=== PATIENT | male | born 1960 | race Caucasian/White ===

== ENCOUNTER 2016-08-13 22:37 | Emergency (ER) | payer MEDICARE ==
[2016-08-13 22:48] VITALS: BP 125/84
[2016-08-13] MEDS ORDERED: ACETAMINOPHEN SOLN 325 MG/10.15 ML UDCUP PO ONE (22:48)
== END 2016-08-14 02:15 | disposition left against medical advice (07) ==
LOC: ER 22:37
DX: Z53.21 Procedure and treatment not carried out due to patient leaving prior to being seen by health care provider (principal)
CPT/HCPCS: 73120; J3490

== ENCOUNTER 2016-09-13 23:13 | Emergency (ER) | payer OTHER, MEDICARE ==
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
[2016-09-14] MEDS ORDERED: MORPHINE SULFATE 10 MG/ML INJ IM ONE (02:05)
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
[2016-09-14] MEDS ORDERED: HYDROCODONE/ACETAMINOPHEN 5-325 MG 6 TAB/DSPK PO PRN (03:13)
[2016-09-14 03:24] VITALS: BP 130/77
== END 2016-09-14 03:23 | disposition home or self-care (01) ==
LOC: ER 23:13
DX: S16.1XXA Strain of muscle, fascia and tendon at neck level, initial encounter (principal); S39.012A Strain of muscle, fascia and tendon of lower back, initial encounter; S46.911A Strain of unspecified muscle, fascia and tendon at shoulder and upper arm level, right arm, initial encounter; V43.62XA Car passenger injured in collision with other type car in traffic accident, initial encounter; M54.2 Cervicalgia; M25.511 Pain in right shoulder; M54.5 Low back pain; Z98.1 Arthrodesis status; Z87.891 Personal history of nicotine dependence
CPT/HCPCS: 99284; 96372; 72110; 73030; 72125; L0120; J2270

== ENCOUNTER 2016-10-16 11:55 | Emergency (ER) | payer MEDICARE ==
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
[2016-10-16] MEDS ORDERED: ALBUTEROL SULFATE 0.083% NEB 2.5 MG/3 ML AMPUL NEB ONE (15:22)
[2016-10-16] MEDS ORDERED: PREDNISONE 20 MG TABLET PO ONE (16:26)
[2016-10-16] MEDS ORDERED: ACETAMINOPHEN 325 MG TABLET PO ONE (16:26)
[2016-10-16 16:44] VITALS: BP 115/92
--- NOTE | 2016-10-16 22:25 | EKG REPORT ---
SEVERITY:- ABNORMAL ECG - SINUS RHYTHM NONSPECIFIC T ABNORMALITIES, LATERAL LEADS : Confirmed by: Yuliya Rdz MD 16-Oct-2016 22:24:56
== END 2016-10-16 16:42 | disposition home or self-care (01) ==
LOC: ER 11:55
DX: S49.92XA Unspecified injury of left shoulder and upper arm, initial encounter (principal); M25.512 Pain in left shoulder; M54.2 Cervicalgia; J45.909 Unspecified asthma, uncomplicated; W19.XXXA Unspecified fall, initial encounter; Y92.098 Other place in other non-institutional residence as the place of occurrence of the external cause; Z87.891 Personal history of nicotine dependence
CPT/HCPCS: 93005; 94640; 99283; 72050; 71020; 73030; 93010; A9270 ×3; J7512

== ENCOUNTER → 2016-10-16 | Outpatient (CLI) | payer MEDICARE | LOC: RAD 09:50 | PROVIDERS: ATTEND Surgery | DX: R10.9 Unspecified abdominal pain (principal); N28.1 Cyst of kidney, acquired | CPT/HCPCS: 74177; 82565 ==

== ENCOUNTER 2019-08-15 07:09 | Emergency (ER) | payer MEDICARE ==
[2019-08-15] MEDS ORDERED: KETOROLAC TROMETHAMINE 60 MG/2 ML SDV IM ONE (08:41)
[2019-08-15] MEDS ORDERED: METHOCARBAMOL INJ/PF 1000 MG/10 ML SDV IM ONE ×2 (08:41→08:49)
--- NOTE | 2019-08-15 08:46 | ER Document Report ---
ED Fall - General Chief Complaint: Fall Stated Complaint: FALL/BACK AND NECK PAIN Time Seen by Provider: 08/15/19 08:26 Notes: Patient is a 59-year-old white male with a past medical history significant for chronic pain, status post multiple prior cervical and lumbar spinal surgeries who presents to the emergency department the chief complaint of pain in the neck, mid back and lower back after a fall that occurred this morning. Patient states he was standing at the mirror when he suddenly fell backwards landing flat on his back. He denies any loss of consciousness or syncope. He states that he sometimes has these "episodes". He takes morphine daily for chronic pain. He denies any numbness tingling or weakness. Denies any urinary or bowel incontinence or retention. Denies any saddle anesthesia. Denies hitting his head or loss of consciousness. TRAVEL OUTSIDE OF THE [place] IN LAST 30 DAYS: No - Related data Allergies/Adverse Reactions: No Known Allergies Allergy (Verified 08/15/19 07:14) Past Medical History - Social History Smoking Status: Former Smoker Family History: Reviewed & Not Pertinent Patient has suicidal ideation: No Patient has homicidal ideation: No - Past Medical History Cardiac Medical History: Reports: Hx Hypertension Pulmonary Medical History: Reports: Hx Asthma Renal/ Medical History: Denies: Hx Peritoneal Dialysis Past Surgical History: Reports: Hx Abdominal Surgery, Hx Appendectomy, Hx Bowel Surgery, Hx Orthopedic Surgery - Immunizations Hx Diphtheria, Pertussis, Tetanus Vaccination: Yes Review of Systems - Review of Systems Musculoskeletal: Back pain, Neck pain -: Yes All other systems reviewed and negative Physical Exam - Vital signs Vitals: Temp Pulse Resp BP Pulse Ox 97.5 F 86 20 103/73 100 08/15/19 07:13 08/15/19 07:13 08/15/19 07:13 08/15/19 07:13 08/15/19 07:13 - General General appearance: Alert, Anxious In distress: Moderate - HEENT Head: Normocephalic, Atraumatic Eyes: Normal Pupils: PERRL - Respiratory Respiratory status: No respiratory distress Chest status: Nontender Breath sounds: Normal Chest palpation: Normal - Cardiovascular Rhythm: Regular Heart sounds: Normal auscultation - Abdominal Inspection: Normal Distension: No distension Bowel sounds: Normal Tenderness: Nontender Organomegaly: No organomegaly - Back Back: Other - Surgical scars noted to the midline lumbar area. Mild tenderness around the area of L3. No deformity step-off or crepitus. Diffuse vague tenderness to the posterior cervical spine, no point tenderness in this area. Positive straight leg raise on the right. Lower extremity strength 5 out of 5 bilaterally. 2+ DP/PT bilaterally. Patient able to elevate great toes bilaterally. - Neurological Neuro grossly intact: Yes Cognition: Normal Orientation: AAOx4 [place] Coma Scale Eye Opening: Spontaneous [place] Coma Scale Verbal: Oriented [place] Coma Scale Motor: Obeys Commands [place] Coma Scale Total: 15 Speech: Normal Motor strength normal: LUE, RUE, LLE, RLE Sensory: Normal - Psychological Associated symptoms: Anxious - Skin Skin Temperature: Warm Skin Moisture: Dry Skin Color: Normal Course - Re-evaluation Re-evalutation: 08/15/19 11:34 Reevaluation at this time, patient resting comfortably in the room, sleeping. Upon waking him he states his pain is significantly improved. X-rays are negative for any acute process. Patient will call his pain management doctor today for further guidance. Discussed with him the importance of outpatient follow-up and advised that he return here or any ER immediately with any new, persistent or worsening symptoms. He verbalized understood and agreed. - Vital Signs Vital signs: Temp Pulse Resp BP Pulse Ox 97.5 F 86 20 103/73 100 08/15/19 07:13 08/15/19 07:13 08/15/19 07:13 08/15/19 07:13 08/15/19 07:13 Discharge - Discharge Clinical Impression: Fall Qualifiers: Encounter type: initial encounter Qualified Code(s): W19.XXXA - Unspecified fall, initial encounter Back pain Qualifiers: Back pain location: back pain in unspecified location Chronicity: acute Back pain laterality: unspecified Qualified Code(s): M54.9 - Dorsalgia, unspecified Disposition: HOME, SELF-CARE Instructions: Low Back Pain ([facility]) Additional Instructions: Call your pain management doctor and follow-up with your regular doctor in 2 to 3 days for reevaluation. Return here or any ER immediately with any new, persistent or worsening symptoms.
--- NOTE | 2019-08-15 09:59 | RADIOLOGY REPORT (SQ) ---
EXAM DESCRIPTION: T SPINE AP/LAT COMPLETED DATE/TIME: 08/15/2019 9:37 am REASON FOR STUDY: fall/pain COMPARISON: None. NUMBER OF VIEWS: Three views. TECHNIQUE: AP, swimmer's and lateral radiographic images acquired of the thoracic spine. LIMITATIONS: None. FINDINGS: MINERALIZATION: Normal. ALIGNMENT: Normal. No scoliosis. VERTEBRAE: No fracture or bone lesion. Maintained height, normal segmentation. DISCS: Multilevel disc height loss and osteophytosis. HARDWARE: None in the spine. MEDIASTINUM AND SOFT TISSUES: Widening of the superior mediastinum and right paratracheal stripe VISUALIZED LUNG BARGER: Clear. OTHER: No other significant finding. IMPRESSION: 1. No definite acute bony abnormality. 2. Multilevel thoracic spondylosis with mild disc height loss. 3. Questionable widening of the superior mediastinum. Recommend dedicated chest radiograph or CT fo r further evaluation. TECHNICAL DOCUMENTATION: JOB ID: [id number] [employer]- All Rights Reserved Reading location - IP/workstation name: [email or web address]
--- NOTE | 2019-08-15 10:01 | RADIOLOGY REPORT (SQ) ---
EXAM DESCRIPTION: L SPINE WHOLE COMPLETED DATE/TIME: 08/15/2019 9:37 am REASON FOR STUDY: fall/pain COMPARISON: 09/14/2016 NUMBER OF VIEWS: Five views including obliques. TECHNIQUE: AP, lateral, oblique, and sacral radiographic images acquired of the lumbar spine. LIMITATIONS: None. FINDINGS: MINERALIZATION: Decreased SEGMENTATION: 5 [id number] lumbar vertebral bodies. ALIGNMENT: Grade 1 anterolisthesis of L5 on S1, stable. Mild levoconvex lower lumbar curvature. VERTEBRAE: Maintained height. No fracture or worrisome bone lesion. DISCS: Mild multilevel disc height loss, greatest at L5-S1. POSTERIOR ELEMENTS: Multilevel facet arthropathy. No definite acute abnormality. Posterior fusion h ardware at L5-S1. HARDWARE: Posterior and anterior fusion hardware at L5-S1. PARASPINAL SOFT TISSUES: Vascular calcifications. PELVIS: Intact as visualized. No fractures or worrisome bone lesions. SI joints intact. OTHER: No other significant finding. IMPRESSION: 1. No definite acute bony abnormality. 2. Fusion hardware at L5-S1 with grade 1 anterolisthesis, stable. 3. Multilevel additional degenerative changes throughout the lumbar spine with associated facet arth ropathy. TECHNICAL DOCUMENTATION: JOB ID: [id number] [employer]- All Rights Reserved Reading location - IP/workstation name: [email or web address]
--- NOTE | 2019-08-15 10:03 | RADIOLOGY REPORT (SQ) ---
EXAM DESCRIPTION: CERV SP 3 VIEW OR LESS COMPLETED DATE/TIME: 08/15/2019 9:37 am REASON FOR STUDY: fall/pain COMPARISON: None. NUMBER OF VIEWS: Three views. TECHNIQUE: AP, lateral and odontoid radiographic images acquired of the cervical spine. LIMITATIONS: None. FINDINGS: MINERALIZATION: Decreased. ALIGNMENT: Straightening of the cervical lordosis. VERTEBRAE: Vertebral bodies are normal height. Fusion at C5-6. No definite fracture. DISCS: Spondylosis with disc height loss greatest at C4-5 and vertebral body fusion at C5-6. HARDWARE: None in the spine. SOFT TISSUES: No masses or calcifications. Lung apices clear. OTHER: No other significant finding. IMPRESSION: 1. No evidence of acute bony abnormality of the cervical spine. 2. Multilevel degenerative changes with fusion at C5-6. TECHNICAL DOCUMENTATION: JOB ID: [id number] [employer]- All Rights Reserved Reading location - IP/workstation name: [email or web address]
--- NOTE | 2019-08-15 11:29 | RADIOLOGY REPORT (SQ) ---
EXAM DESCRIPTION: CHEST 2 VIEWS COMPLETED DATE/TIME: 08/15/2019 9:56 am REASON FOR STUDY: poss widened mediastinum COMPARISON: 10/16/2016 EXAM PARAMETERS: NUMBER OF VIEWS: two views TECHNIQUE: Digital Frontal and Lateral radiographic views of the chest acquired. RADIATION DOSE: NA LIMITATIONS: none FINDINGS: LUNGS AND PLEURA: No opacities, masses or pneumothorax. No pleural effusion. MEDIASTINUM AND HILAR STRUCTURES: No masses or contour abnormalities. HEART AND VASCULAR STRUCTURES: Heart normal size. No evidence for failure. BONES: No acute findings. HARDWARE: None in the chest. OTHER: No other significant finding. IMPRESSION: NO ACUTE RADIOGRAPHIC FINDING IN THE CHEST. TECHNICAL DOCUMENTATION: JOB ID: [id number] [employer]- All Rights Reserved Reading location - IP/workstation name: [id number]
[2019-08-15 12:04] VITALS: BP 98/58
== END 2019-08-15 12:13 | disposition home or self-care (01) ==
LOC: ER 07:09
DX: M54.5 Low back pain (principal); M54.9 Dorsalgia, unspecified; M54.2 Cervicalgia; W18.30XA Fall on same level, unspecified, initial encounter; G89.29 Other chronic pain; Z79.891 Long term (current) use of opiate analgesic; I10 Essential (primary) hypertension; J45.909 Unspecified asthma, uncomplicated; Z98.1 Arthrodesis status; Z87.891 Personal history of nicotine dependence
CPT/HCPCS: 99283; 96372; 72040; 71046; 72110; 72070; J1885; J2800

== ENCOUNTER 2019-08-15 17:09 | Emergency (ER) | payer MEDICARE ==
[2019-08-15] MEDS ORDERED: ONDANSETRON HCL INJ/PF 4 MG/2 ML SDV IV ONE (17:22)
--- NOTE | 2019-08-15 17:25 | ER Document Report ---
ED Medical Screen (RME) - General Chief Complaint: Nausea/Vomiting Stated Complaint: NAUSEA/VOMITING/WEAK Time Seen by Provider: 08/15/19 17:21 Primary Care Provider: JHONNY MANJARREZ PA-C [Primary Care Provider] - Follow up as needed Notes: HPI: 59-year-old male presenting again to the emergency department apparently for poor responsiveness. Patient's states that he was seen here earlier after a fall, does have a history of conversion disorder also history of gastric bypass. Patient apparently was given Toradol and Robaxin in the emergency department for his chronic pain issues with good response, states when they got home she had difficulty arousing him at times. She did not call 911 but instead brought him back to the emergency department herself. Patient complains of continued gagging and nausea, but denies abdominal pain. Complains of his otherwise usual chronic pain issues I have greeted and performed a rapid initial assessment of this patient. A comprehensive ED assessment and evaluation of the patient, analysis of test results and completion of the medical decision making process will be conducted by additional ED providers PHYSICAL EXAMINATION: GENERAL: Chronically ill-appearing, patient appears to be possibly gagging but not actually vomiting. Patient is throwing himself around in his wheelchair dramatically HEAD: Atraumatic, normocephalic. EYES: sclera anicteric, conjunctiva are normal. ENT: Moist mucous membranes. NECK: Normal range of motion LUNGS: Normal work of breathing, lung sounds are clear to auscultation HEART: 2+ radial pulses bilaterally, regular rate and rhythm ABD: limited by positioning for exam in triage. EXTREMITIES: no pitting or edema. No cyanosis. NEUROLOGICAL: No focal neurological deficits. Moves all extremities spontaneously and on command. PSYCH: Anxious and dramatic SKIN: Warm, Dry, normal turgor, no rashes or lesions noted. Nursing indicates that when they went to get the patient out of the vehicle into a wheelchair they essentially had to sternal rub the patient to arouse him TRAVEL OUTSIDE OF THE [place] IN LAST 30 DAYS: No - Related Data Allergies/Adverse Reactions: No Known Allergies Allergy (Verified 08/15/19 07:14) Past Medical History - Past Medical History Cardiac Medical History: Reports: Hx Hypertension Pulmonary Medical History: Reports: Hx Asthma Renal/ Medical History: Denies: Hx Peritoneal Dialysis Past Surgical History: Reports: Hx Abdominal Surgery, Hx Appendectomy, Hx Bowel Surgery, Hx Orthopedic Surgery - Immunizations Hx Diphtheria, Pertussis, Tetanus Vaccination: Yes Doctor's Discharge - Discharge Referrals: JHONNY MANJARREZ PA-C [Primary Care Provider] - Follow up as needed
[2019-08-15 18:20] LABS: ABSOLUTE EOSINOPHILS # (AUTO) 0.1 10^3/uL (0.0-0.6); ABSOLUTE LYMPHOCYTES (AUTO) 1.4 10^3/uL (0.5-4.7); ABSOLUTE NEUT (AUTO) 10.6 10^3/uL (1.7-8.2); BASOPHILS % (AUTO) 0.3 % (0-2); EOSINOPHILS % (AUTO) 0.5 % (0-6); HEMATOCRIT 36.7 % (37.9-51.0); HEMOGLOBIN 12.6 g/dL (13.5-17.0); LYMPHOCYTES % (AUTO) 10.5 % (13-45); MEAN CORPUSCULAR HGB CONC 34.2 g/dL (32.0-36.0); MEAN CORPUSCULAR VOLUME 85 fl (80-97); MONOCYTES % (AUTO) 7.4 % (3-13); PLATELET COUNT 320 10^3/uL (150-450); RED BLOOD COUNT 4.33 10^6/uL (4.35-5.55); RED CELL DISTRIBUTION WIDTH 14.5 % (11.5-14.0); SEGMENTED NEUTROPHILS % (AUTO) 81.3 % (42-78); TOTAL CELLS COUNTED % (AUTO) 100 %; WHITE BLOOD COUNT 13.1 10^3/uL (4.0-10.5)
[2019-08-15 18:38] LABS: ALBUMIN 4.5 g/dL (3.5-5.0); ALKALINE PHOSPHATASE 168 U/L (38-126); ANION GAP 14 (5-19); ASPARTATE AMINO TRANSFERASE 50 U/L (17-59); BILIRUBIN,DIRECT 0.3 mg/dL (0.0-0.4); BILIRUBIN,TOTAL 0.6 mg/dL (0.2-1.3); BLOOD UREA NITROGEN 42 mg/dL (7-20); CALCIUM 9.8 mg/dL (8.4-10.2); CARBON DIOXIDE 31 mmol/L (22-30); CHLORIDE 95 mmol/L (98-107); GLUCOSE 121 mg/dL (75-110); POTASSIUM 4.8 mmol/L (3.6-5.0); TOTAL PROTEIN 7.8 g/dL (6.3-8.2)
--- NOTE | 2019-08-15 18:42 | RADIOLOGY REPORT (SQ) ---
EXAM DESCRIPTION: CT HEAD WITHOUT COMPLETED DATE/TIME: 08/15/2019 6:24 pm REASON FOR STUDY: fall poss head inj COMPARISON: None. TECHNIQUE: Axial images acquired through the brain without intravenous contrast. Images reviewed wi th bone and brain windows. Additional sagittal and coronal reconstructions were generated. Images st ored on PACS. All CT scanners at this facility use dose modulation, iterative reconstruction, and/or weight based d osing when appropriate to reduce radiation dose to as low as reasonably achievable (ALARA). [facility]: Dose Right [facility]: CareDose [facility]: Dose Right [facility]: Teradose 4D [facility]: Smart Knowledge Adventure RADIATION DOSE: CT Rad equipment meets quality standard of care and radiation dose reduction techniq ues were employed. CTDIvol: 53.2 mGy. DLP: 1097 mGy-cm. mGy. LIMITATIONS: There is significant motion and metal artifact through the base of the skull and the up per cervical spine. FINDINGS: VENTRICLES: Normal size and contour. CEREBRUM: No masses. No hemorrhage. No midline shift. No evidence for acute infarction. Normal gra y/white matter differentiation. No areas of low density in the white matter. CEREBELLUM: No masses. No hemorrhage. No alteration of density. No evidence for acute infarction. EXTRAAXIAL SPACES: No fluid collections. No masses. ORBITS AND GLOBE: No intra- or extraconal masses. Normal contour of globe without masses. CALVARIUM: No fracture. PARANASAL SINUSES: No fluid or mucosal thickening. SOFT TISSUES: No mass or hematoma. OTHER: Significant motion and metal artifact in the bases: The upper cervical spine, as such the stru ctures are not well evaluated on this exam. IMPRESSION: Partially limited examination due to patient motion through the skullbase and upper cerv ical spine. No evidence of an acute intracranial abnormality. EVIDENCE OF ACUTE STROKE: NO. COMMENT: Quality ID # [id number]: Final reports with documentation of one or more dose reduction techniques (e.g., Automated exposure control, adjustment of the mA and/or kV according to patient size, use of iterative reconstruction technique) TECHNICAL DOCUMENTATION: JOB ID: [id number] [employer]- All Rights Reserved Reading location - IP/workstation name: [email or web address]
--- NOTE | 2019-08-15 20:18 | ER Document Report ---
ED General - General Chief Complaint: Nausea/Vomiting Stated Complaint: NAUSEA/VOMITING/WEAK Time Seen by Provider: 08/15/19 17:21 Primary Care Provider: JHONNY PATINO PA-C [Primary Care Provider] - Follow up as needed TRAVEL OUTSIDE OF THE [place] IN LAST 30 DAYS: No - HPI Notes: Patient is a 59-year-old gentleman who presents to the emergency department for evaluation with . The is the primary historian for me at this time. Evidently, the patient has a history of cataplexy, narcolepsy. He had an episode today where he fell straight back, hit his head. He was complaining of increased pain. Per the , he was very restless through the night, complaining of multiple issues of just "not feeling well" but really could not elaborate. He was seen here earlier today after his fall, medicated with Toradol and Robaxin, had significant relief. He had a CT scan of his head which was unremarkable. He was feeling improved, was sent home. According to the while sitting in the chair he "fell out." She states she tried for approximately 20 minutes and was unable to revive him back to responsiveness. She brought him here to the emergency department for further evaluation. While here, the patient had another episode like this, was placed on BiPAP. I was able to arouse him, the patient states that he was feeling improved, had no acute complaints or concerns other than his chronic back pain. In talking to his , the patient notes that he is to have to self catheterize. She states that he does not have catheters anymore. I asked the patient, he states he does not remember urinating today. - Related Data Allergies/Adverse Reactions: No Known Allergies Allergy (Verified 08/15/19 07:14) Past Medical History - General Information source: Patient, Relative - Social History Smoking Status: Former Smoker Family History: Reviewed & Not Pertinent Patient has suicidal ideation: No Patient has homicidal ideation: No - Past Medical History Cardiac Medical History: Reports: Hx Hypertension Pulmonary Medical History: Reports: Hx Asthma Endocrine Medical History: Reports: Hx Diabetes Mellitus Type 2 - Reversed after gastric bypass Renal/ Medical History: Denies: Hx Peritoneal Dialysis Psychiatric Medical History: Reports: Other - Cataplexy, narcolepsy Past Surgical History: Reports: Hx Abdominal Surgery, Hx Appendectomy, Hx Bowel Surgery, Hx Orthopedic Surgery - Immunizations Hx Diphtheria, Pertussis, Tetanus Vaccination: Yes Review of Systems - Review of Systems Constitutional: See HPI EENT: No symptoms reported Cardiovascular: No symptoms reported Respiratory: No symptoms reported Gastrointestinal: No symptoms reported Genitourinary: See HPI Musculoskeletal: See HPI Skin: No symptoms reported Neurological/Psychological: No symptoms reported Physical Exam - Vital signs Vitals: Temp Pulse Resp BP Pulse Ox 97.4 F 91 18 149/117 H 91 L 08/15/19 17:20 08/15/19 17:20 08/15/19 17:20 08/15/19 17:20 08/15/19 17:20 - Notes Notes: Initially upon entering the room, I see a 59-year-old male who appears older than his stated age. He has BiPAP in place, is sleeping with his head flexed forward. He wakes to sternal rub. At that point he does not appear drowsy and is alert and oriented. Vital signs reviewed, please refer to chart. Head is normocephalic, atraumatic. Pupils equal round, reactive to light. Neck is supple without meningismus. Heart is regular rate and rhythm. Lungs are clear to auscultation bilaterally. Abdomen is soft, nontender, normoactive bowel sounds throughout. Extremities without cyanosis, clubbing. Posterior calves are nontender. Peripheral pulses are equal. Skin is warm and dry. Patient is awake, alert, oriented x3. Cranial nerves II - XII are grossly intact without focal neurological deficits. Strength is plus 5 out of 5 bilateral upper and lower extremities. Sensation is intact. Reflexes symmetrical. Intact [id number], rapid alternating movements, [id number]. Course - Re-evaluation Re-evalutation: 08/15/19 20:17 Patient presents to the emergency department for evaluation. He is a 59-year-old gentleman with a history of narcolepsy and cataplexy. It certainly seems to me that it is possible that the patient had an exacerbation of his cataplexy and narcolepsy earlier today. He is stable at this time, awake and alert, has no acute complaints. I am concerned, however, about his renal function. The patient does not have any record of renal failure in the past, does not note any history of abnormal renal function. I am concerned about the possibility of an obstructive etiology. Patient stated that he thought he could urinate. A post void residual bladder scan was ordered, in addition to a retroperitoneal ultrasound. Patient is currently stable, we will continue to monitor. 08/15/19 23:48 Patient's ultrasound revealed what appears to be medical renal disease but no signs of hydronephrosis. He did have just over 300 cc of urine from his Blake catheter, but he has had urinary retention issues in the past. He would prefer to go home without Blake catheter, and I believe that is reasonable at this time. The Blake catheter will be discontinued. I am unable to find a record of old creatinines in the past. The patient is unsure as to whether or not he has had elevated creatinines, but certainly given the appearance of his kidneys on ultrasound I think is reasonable to think that this is not new. He states he has not seen nephrology. I spoke with Dr. Cornejo. He agrees to see the patient in follow-up. I explained to the patient that this may require referral from primary care as well, and the patient and voiced understanding. At this p oint, the patient is slightly agitated and restless, which according to is his baseline. I do not see any indication of getting repeat discharge vitals, and let nursing know. They are to discontinue his Blake, discontinue his IV, and he is discharged. He is to follow-up closely with Jhonny patino and Dr. Cornejo. - Vital Signs Vital signs: Temp Pulse Resp BP Pulse Ox 97.4 F 91 18 149/117 H 91 L 08/15/19 17:20 08/15/19 17:20 08/15/19 17:20 08/15/19 17:20 08/15/19 17:20 - Laboratory Result Diagrams: 08/15/19 18:01 08/15/19 18:01 Laboratory results interpreted by me: 08/15/19 08/15/19 08/15/19 18:01 18:01 22:18 WBC 13.1 H RBC 4.33 L Hgb 12.6 L Hct 36.7 L RDW 14.5 H Lymph % (Auto) 10.5 L Absolute Neuts (auto) 10.6 H Seg Neutrophils % 81.3 H Chloride 95 L Carbon Dioxide 31 H BUN 42 H Creatinine 3.38 H Est GFR ( Amer) 23 L Est GFR (MDRD) Non-Af 19 L Glucose 121 H Alkaline Phosphatase 168 H Urine Protein 30 H Urine Urobilinogen 2.0 H - Diagnostic Test Radiology reviewed: Reports reviewed Radiology results interpreted by me: 08/15/19 23:[address] 08/15/19 18:01 IMPRESSION: Partially limited examination due to patient motion through the skullbase and upper cervical spine. No evidence of an acute intracranial abnormality. EVIDENCE OF ACUTE STROKE: NO. Renal Ultrasound 08/15/19 20:11 IMPRESSION: Limited exam secondary to patient motion Atrophic right kidney Increased echogenicity of the kidneys bilaterally consistent with intrinsic medical renal disease Discharge - Discharge Clinical Impression: Abnormal renal function, Unresponsive episode, Urinary retention Condition: Stable Disposition: HOME, SELF-CARE Instructions: Kidney Failure ([facility]), Urinary Retention ([facility]) Additional Instructions: Continue your regular medications as prescribed. You need to follow-up with nephrology and primary care this week. You may require referral to nephrology from your primary care provider. Please call Dr. Cornejo for an appointment. Return to the emergency department with worsening or new concerning symptoms of any sort. Referrals: JHONNY PATINO PA-C [Primary Care Provider] - Follow up as needed Daryl CORNEJO MD [ACTIVE STAFF] - Follow up as needed
[2019-08-15] MEDS ORDERED: GABAPENTIN 300 MG CAPSULE PO ONE (21:41)
[2019-08-15] MEDS ORDERED: BUPROPION HCL 75 MG TABLET PO ONE (21:42)
[2019-08-15] MEDS ORDERED: VENLAFAXINE HCL 75 MG TABLET PO ONE (21:42)
[2019-08-15] MEDS ORDERED: BACLOFEN 10 MG TABLET PO ONE (21:42)
[2019-08-15] MEDS ORDERED: NORTRIPTYLINE HCL 10 MG CAPSULE PO ONE (21:42)
--- NOTE | 2019-08-15 21:42 | RADIOLOGY REPORT (SQ) ---
EXAM DESCRIPTION: US RETROPERITONEUM LIMITED COMPLETED DATE/TME: 08/15/2019 20:11 CLINICAL HISTORY: 59 years Male eval kidneys, acute renal failure COMPARISON: None. TECHNIQUE: Transabdominal grayscale imaging performed to evaluate the kidneys and urinary bladder. FINDINGS: Right kidney measures 8.7 x 3.4 x 4.1 cm. There is increased echogenicity. Probable small cyst in the mid to lower pole measuring 2.3 x 2.4 cm. No hydronephrosis. Examination is compromised by patient's inability to hold still and suspended respiration. Left kidney measures 9.9 x 4.7 x 4.4 cm with increased echogenicity. No definite hydronephrosis or mass. Bladder is incompletely distended. Neither ureteral jet is seen. IMPRESSION: Limited exam secondary to patient motion Atrophic right kidney Increased echogenicity of the kidneys bilaterally consistent with intrinsic medical renal disease
[2019-08-15] MEDS ORDERED: MORPHINE SULFATE IR 30 MG TABLET PO ONE (21:43)
[2019-08-15] MEDS ORDERED: TAMSULOSIN HCL 0.4 MG CAP.SR.24H PO ONE (21:43)
[2019-08-15 22:39] LABS: APPEARANCE,URINE SLIGHTLY-CLOUDY; BILIRUBIN,URINE NEGATIVE (NEGATIVE); COLOR,URINE YELLOW; GLUCOSE, URINE NEGATIVE (NEGATIVE); KETONES,URINE NEGATIVE (NEGATIVE); LEUKOCYTE ESTERASE,URINE NEGATIVE (NEGATIVE); NITRITE,URINE NEGATIVE (NEGATIVE); PROTEIN,URINE 30 mg/dL (NEGATIVE)
[2019-08-15 22:50] LABS: URINE AMPHETAMINES SCREEN NEGATIVE; URINE BARBITURATES SCREEN NEGATIVE; URINE BENZODIAZEPINES SCREEN NEGATIVE; URINE COCAINE SCREEN NEGATIVE; URINE MARIJUANA (THC) SCREEN NEGATIVE; URINE METHADONE SCREEN NEGATIVE; URINE PHENCYCLIDINE SCREEN NEGATIVE
[2019-08-15] MEDS ORDERED: BUPROPION HCL 75 MG TABLET ONE (22:55)
[2019-08-15] MEDS ORDERED: NORTRIPTYLINE HCL 10 MG CAPSULE ONE (22:55)
[2019-08-15] MEDS ORDERED: VENLAFAXINE HCL 75 MG TABLET ONE (22:55)
[2019-08-16 00:15] VITALS: BP 100/68
== END 2019-08-16 00:15 | disposition home or self-care (01) ==
LOC: ER 17:09
DX: R41.82 Altered mental status, unspecified (principal); R33.9 Retention of urine, unspecified; N26.1 Atrophy of kidney (terminal); R45.1 Restlessness and agitation; I10 Essential (primary) hypertension; J45.909 Unspecified asthma, uncomplicated; E11.9 Type 2 diabetes mellitus without complications; Z87.891 Personal history of nicotine dependence; Z86.69 Personal history of other diseases of the nervous system and sense organs
CPT/HCPCS: 99284; 51702; 96374; 36415; 85025; 80053; 81001; 80307; 76775; 70450; 94660; A9270 ×7; J2405; J3490

== ENCOUNTER 2019-09-16 22:34 | Emergency (ER) | payer MEDICARE ==
--- NOTE | 2019-09-16 23:20 | ER Document Report ---
ED Medical Screen (RME) - General Chief Complaint: Urinary Problem Stated Complaint: FALL/HEAD INJURY,SHOULDER PAIN Time Seen by Provider: 09/16/19 23:12 Primary Care Provider: JHONNY AMNJARREZ PA-C [Primary Care Provider] - Follow up as needed Mode of Arrival: Wheelchair Information source: Patient Notes: Patient is a 59-year-old male presenting to the emergency department multiple complaints. Patient reports he fell earlier due to his cataplexy and injured his head and left shoulder. He denies any loss of consciousness. He also reports he has not urinated in at least 24 hours. He also reports of the last time he was here he had an acute kidney injury, states that he was supposed to follow-up with a kidney doctor however the referral has not gone through. I did review the records and patient had a creatinine of greater than 3 last month with apparently no follow-up. Orders initiated at this time. I have greeted and performed a rapid initial assessment of this patient. A comprehensive ED assessment and evaluation of the patient, analysis of test results and completion of the medical decision making process will be conducted by additional ED providers. I have specifically instructed the patient or family members with the patient to immediately return to any nursing staff should anything change in the patient's condition or with their chief complaint. TRAVEL OUTSIDE OF THE [place] IN LAST 30 DAYS: No - Related Data Allergies/Adverse Reactions: No Known Allergies Allergy (Verified 08/15/19 07:14) Past Medical History - Past Medical History Cardiac Medical History: Reports: Hx Hypertension Pulmonary Medical History: Reports: Hx Asthma Endocrine Medical History: Reports: Hx Diabetes Mellitus Type 2 - Reversed after gastric bypass Renal/ Medical History: Denies: Hx Peritoneal Dialysis Past Surgical History: Reports: Hx Abdominal Surgery, Hx Appendectomy, Hx Bowel Surgery, Hx Orthopedic Surgery - Immunizations Hx Diphtheria, Pertussis, Tetanus Vaccination: Yes Physical Exam - Vital signs Vitals: Temp Pulse Resp BP Pulse Ox 98.5 F 92 18 126/73 H 97 09/16/19 22:55 09/16/19 22:55 09/16/19 22:55 09/16/19 22:55 09/16/19 22:55 Course - Vital Signs Vital signs: Temp Pulse Resp BP Pulse Ox 98.5 F 92 18 126/73 H 97 09/16/19 22:55 09/16/19 22:55 09/16/19 22:55 09/16/19 22:55 09/16/19 22:55 Doctor's Discharge - Discharge Referrals: JHONNY MANJARREZ PA-C [Primary Care Provider] - Follow up as needed
[2019-09-16 23:52] LABS: ABSOLUTE EOSINOPHILS # (AUTO) 0.1 10^3/uL (0.0-0.6); RED CELL DISTRIBUTION WIDTH 14.6 % (11.5-14.0); TOTAL CELLS COUNTED % (AUTO) 100 %
[2019-09-17] LABS: ABSOLUTE LYMPHOCYTES (AUTO) 1.9 10^3/uL (0.5-4.7); ABSOLUTE MONOCYTES (AUTO) 1.1 10^3/uL (0.1-1.4); ABSOLUTE NEUT (AUTO) 8.3 10^3/uL (1.7-8.2); BASOPHILS % (AUTO) 0.3 % (0-2); EOSINOPHILS % (AUTO) 0.5 % (0-6); HEMATOCRIT 36.1 % (37.9-51.0); HEMOGLOBIN 12.7 g/dL (13.5-17.0); LYMPHOCYTES % (AUTO) 16.5 % (13-45); MEAN CORPUSCULAR HEMOGLOBIN 29.9 pg (27.0-33.4); MEAN CORPUSCULAR HGB CONC 35.3 g/dL (32.0-36.0); MEAN CORPUSCULAR VOLUME 85 fl (80-97); MONOCYTES % (AUTO) 9.5 % (3-13); PLATELET COUNT 369 10^3/uL (150-450); RED BLOOD COUNT 4.26 10^6/uL (4.35-5.55); SEGMENTED NEUTROPHILS % (AUTO) 73.2 % (42-78); WHITE BLOOD COUNT 11.3 10^3/uL (4.0-10.5)
[2019-09-17 00:16] LABS: APPEARANCE,URINE SLIGHTLY-CLOUDY; BILIRUBIN,URINE NEGATIVE (NEGATIVE); COLOR,URINE YELLOW; GLUCOSE, URINE NEGATIVE (NEGATIVE); KETONES,URINE NEGATIVE (NEGATIVE); PROTEIN,URINE 30 mg/dL (NEGATIVE); URINE SPECIFIC GRAVITY 1.019; UROBILINOGEN,URINE NEGATIVE mg/dL (<2.0)
--- NOTE | 2019-09-17 00:37 | RADIOLOGY REPORT (SQ) ---
Left shoulder three view on 09/17/2019 at 12:11 AM CLINICAL INDICATION: Injury, pain COMPARISON: 10/16/2016 FINDINGS: There is old healed fracture of the distal clavicle. The AC joint is well aligned. There is no acute fracture. Glenohumeral joint is well located. No other bony abnormality is noted. IMPRESSION: No acute abnormality.
[2019-09-17 00:46] LABS: ALBUMIN 4.3 g/dL (3.5-5.0); ALKALINE PHOSPHATASE 168 U/L (38-126); ANION GAP 14 (5-19); ASPARTATE AMINO TRANSFERASE 54 U/L (17-59); BILIRUBIN,DIRECT 0.1 mg/dL (0.0-0.4); BILIRUBIN,TOTAL 0.9 mg/dL (0.2-1.3); BLOOD UREA NITROGEN 42 mg/dL (7-20); CALCIUM 9.3 mg/dL (8.4-10.2); CARBON DIOXIDE 24 mmol/L (22-30); CHLORIDE 97 mmol/L (98-107); GLUCOSE 106 mg/dL (75-110); TOTAL PROTEIN 7.4 g/dL (6.3-8.2)
--- NOTE | 2019-09-17 00:48 | RADIOLOGY REPORT (SQ) ---
EXAM DESCRIPTION: [facility]Lex: CT HEAD WITHOUT IV CONTRAST CLINICAL HISTORY: 59 years Male; HEAD INJURY; TECHNIQUE: Noncontrast CT head. All CT scans at this facility use dose modulation, iterative reconstruction, and/or weight based dosing when appropriate to reduce radiation dose to as low as reasonably achievable. COMPARISON: CT 08/15/2019 FINDINGS: Krishnamurthy matter, white matter, ventricles, and cisterns are within normal limits. No acute hemorrhage or mass effect. Visualized portions of paranasal sinuses and mastoids are clear. Visualized portions of the calvarium are within normal limits. IMPRESSION: 1. No acute intracranial findings.
[2019-09-17] MEDS ORDERED: HYDROMORPHONE HCL INJ/PF 2 MG/ML AMPULE IV ONE (03:05)
--- NOTE | 2019-09-17 03:18 | ER Document Report ---
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 Patient states he falls frequently but when he got up his shoulder was hurting a lot. He denies numbness, weakness, vomiting, or headache. Patient secondarily complains that he has urinary retention. Patient has a history of self-catheterization, he states that ever since he had surgery and urinary retention he overstretched his bladder and he intermittently has problems with retention, he used to get self cath frequently, he usually can get by without any catheterization but he has not urinated since the morning and it is starting to get uncomfortable. Patient also states that he had a creatinine greater than 3 last month and is still waiting for his primary care to complete follow-up with Dr. Cornejo. Patient is also on chronic pain management and has had neck surgery in the past. Patient denies any other complaints. TRAVEL OUTSIDE OF THE [place] IN LAST 30 DAYS: No - Related Data Allergies/Adverse Reactions: No Known Allergies Allergy (Verified 08/15/19 07:14) Past Medical History - General Information source: Patient - Social History Smoking Status: Unknown if Ever Smoked Frequency of alcohol use: None Drug Abuse: None Lives with: Family Family History: Reviewed & Not Pertinent Patient has suicidal ideation: No Patient has homicidal ideation: No - Past Medical History Cardiac Medical History: Reports: Hx Hypertension Pulmonary Medical History: Reports: Hx Asthma Endocrine Medical History: Reports: Hx Diabetes Mellitus Type 2 - Reversed after gastric bypass Renal/ Medical History: Denies: Hx Peritoneal Dialysis Past Surgical History: Reports: Hx Abdominal Surgery, Hx Appendectomy, Hx Bowel Surgery, Hx Orthopedic Surgery - Immunizations Hx Diphtheria, Pertussis, Tetanus Vaccination: Yes Review of Systems - Review of Systems Constitutional: No symptoms reported EENT: No symptoms reported Cardiovascular: No symptoms reported Respiratory: No symptoms reported Gastrointestinal: No symptoms reported Genitourinary: See HPI Male Genitourinary: No symptoms reported Musculoskeletal: See HPI Skin: No symptoms reported Hematologic/Lymphatic: No symptoms reported Neurological/Psychological: See HPI Physical Exam - Vital signs Vitals: Temp Pulse Resp BP Pulse Ox 98.5 F 92 18 126/73 H 97 09/16/19 22:55 09/16/19 22:55 09/16/19 22:55 09/16/19 22:55 09/16/19 22:55 - Notes Notes: GENERAL: Alert, interacts well. No acute distress. HEAD: Normocephalic, atraumatic. EYES: Pupils equal, round, and reactive to light. Extraocular movements intact. ENT: Oral mucosa moist, tongue midline. Oropharynx unremarkable. Airway patent. LUNGS: Clear to auscultation bilaterally, no wheezes, rales, or rhonchi. No respiratory distress. HEART: Regular rate and rhythm. No murmur ABDOMEN: Soft, non-tender. Non-distended. Bowel sounds present in all 4 q uadrants. GENITOURINARY: Blake in place with no bleeding, tenderness, swelling, or concerning findings. EXTREMITIES: Tenderness over the tip of the shoulder on the left and over the posterior shoulder extending to the supraspinatus. Range of motion intact. No swelling or contusion noted. No significant tenderness. Normal upper extremity otherwise on the left with normal supervising librarian, range of motion, and no signs of trauma. Moves all 4 extremities spontaneously. No edema, normal radial and dorsalis pedis pulses bilaterally. No cyanosis. BACK: no cervical, thoracic, lumbar midline tenderness. No saddle anesthesia, normal distal neurovascular exam. Moves all extremities in full range of motion. NEUROLOGICAL: Alert and oriented x3. Normal speech. Patient has jittery movements but his cranial nerves and neurological exam are otherwise intact. PSYCH: Normal affect, normal mood. SKIN: Warm, dry, normal turgor. No rashes or lesions noted. Course - Re-evaluation Re-evalutation: CBC shows mild leukocytosis, nonspecific. Chemistry shows creatinine of 3.1 but this is actually improved compared to recent testing. After placing Blake we had about 1200 cc output. Patient is not surprised by this, he states he has had this in the past with similar results. He received IV fluids in addition to this all the Blake was in place. Imaging of the neck added because of the location of his pain and history of neck surgery along with head injury, this was negative, CT of the head negative, x-ray of the shoulder negative. His exam is reassuring in addition to this. Patient has frequent falls from cataplexy. Discussed with patient. Discussed head and precautions, details of work-up, patient states he has follow-up planned with Dr. Cornejo. Patient insists that we remove the Blake. He states that he has had this removed many times in the past, urinates fairly well at home, occasionally gets a urinary retention and he will come back if he has this. I recommended that we leave this in place and he hydrate well because of his kidney functioning but he again refused. This was pulled on his request, patient states that he definitely will see his primary care and the enzyme chemist and close follow-up and return if he worsens in any way. He is going home with his significant other, discussed details with her as well. They state understanding and agreement. - Vital Signs Vital signs: Temp Pulse Resp BP Pulse Ox 98.5 F 99 16 139/86 H 95 09/17/19 06:00 09/17/19 06:00 09/17/19 06:00 09/17/19 06:00 09/17/19 06:00 - Laboratory Result Diagrams: 09/16/19 23:25 09/16/19 23:25 Laboratory results interpreted by me: 09/16/19 09/16/19 09/16/19 23:25 23:25 23:55 WBC 11.3 H RBC 4.26 L Hgb 12.7 L Hct 36.1 L RDW 14.6 H Absolute Neuts (auto) 8.3 H Sodium 134.8 L Chloride 97 L BUN 42 H Creatinine 3.11 H Est GFR ( Amer) 25 L Est GFR (MDRD) Non-Af 21 L Alkaline Phosphatase 168 H Urine Protein 30 H Discharge - Discharge Clinical Impression: Neck pain, Urinary retention Fall Qualifiers: Encounter type: initial encounter Qualified Code(s): W19.XXXA - Unspecified fall, initial encounter Left shoulder pain Qualifiers: Chronicity: acute Qualified Code(s): M25.512 - Pain in left shoulder Head injury Qualifiers: Encounter type: initial encounter Qualified Code(s): S09.90XA - Unspecified injury of head, initial encounter Condition: Stable Disposition: HOME, SELF-CARE Additional Instructions: Your imaging does not show any concerning findings. Please follow head injury precautions listed below. Take muscle x-ray if needed along with your pain medication. Apply ice to your shoulder, heat to your neck, and rest. You have elected to have the Blake removed today. Please follow-up with Dr. Cornejo, nephrology. Your creatinine today was 3.1. Also follow with the urology referral listed below. Return for any concerning symptoms or something is not right. [facility] [address] [place], [place] [id number] [facility] [address] [place], [place] [id number] Head Injury Precautions At this point, there is no evidence that your head injury is serious. Observation is necessary, however. Limit activity for the first 24 hours. During the first 24 hours, check to see approximately every two to three hours that the patient is easily arousable, responds normally, and can perform common tasks such as walking without difficulty. Contact your doctor or go to the hospital if any of the following things occur: Persistent vomiting, difficulty in arousing the patient, worsening or continued headache, or failure to improve as expected. Head injuries can cause symptoms that persist for a few days or even a few weeks. Prescriptions: Methocarbamol [Robaxin-750] 750 mg PO QID PRN #20 tablet PRN Reason: Referrals: Daryl CORNEJO MD [ACTIVE STAFF] - Follow up tomorrow
[2019-09-17] MEDS ORDERED: NORMAL SALINE 1000 ML 1,000 ML IV ONE (04:30)
--- NOTE | 2019-09-17 05:02 | RADIOLOGY REPORT (SQ) ---
CT cervical spine without contrast on 09/17/2019 at 4:15 AM CLINICAL INDICATION: Fall, neck pain TECHNIQUE: Multiple axial images are obtained throughout the cervical spine without the administration of contrast. Sagittal and coronal reformatted images are also performed and reviewed. This exam was performed according to our departmental dose-optimization program, which includes automated exposure control, adjustment of the mA and/or kV according to patient size and/or use of iterative reconstruction technique. Total DLP is 646.92 mGy*cm. COMPARISON: 09/14/2016 FINDINGS: Reformatted images reveal normal alignment of the cervical spine. There is again noted chronic fusion at C5-6 that may be congenital or postsurgical. Degenerative disc disease is again noted especially from C3 through C5. There is no prevertebral soft tissue swelling. There are no acute fracture lines. Degenerative disc disease and relatively short pedicles produce canal stenosis at especially C3-4 and C4-5 where disc osteophyte complexes produce moderate canal stenosis. This appears essentially stable when compared with the prior exam. IMPRESSION: Stable degenerative changes with no acute fracture or acute malalignment of the cervical spine.
[2019-09-17 06:03] VITALS: BP 139/86
== END 2019-09-17 06:10 | disposition home or self-care (01) ==
LOC: ER 22:34
DX: S09.90XA Unspecified injury of head, initial encounter (principal); M25.512 Pain in left shoulder; M54.2 Cervicalgia; R33.9 Retention of urine, unspecified; W18.39XA Other fall on same level, initial encounter; Z91.81 History of falling; I10 Essential (primary) hypertension; Z98.84 Bariatric surgery status
CPT/HCPCS: 99284; 96361; 96374; 36415; 85025; 80053; 81001; 73030; 70450; 72125; J1170; J7030

== ENCOUNTER 2019-11-03 14:18 | Emergency (ER) | payer MEDICARE ==
[2019-11-03 14:23] VITALS: BP 115/77
--- NOTE | 2019-11-03 14:38 | ER Document Report ---
HPI - HPI Patient complains to provider of: Left wrist and hand injury Time Seen by Provider: 11/03/19 14:27 Onset: Other - two days ago, wednesday Onset/Duration: Persistent Quality of pain: Achy Context: 59-year-old male presents emergency department with complaints of left wrist hand pain. Reports 2 days ago he was stepping over a fence when his pants got caught in his shoe and he tripped and fell back on his shoulder and his hand. He denies hitting his head. No change in LOC. Reports since that time he has been having trouble gripping soda without his hand and wrist hurting. Patient is right-hand dominant. Patient reports he is fractured his right arm many times but never his left. Associated Symptoms: None Exacerbated by: Movement Relieved by: Denies Similar symptoms previously: No Recently seen / treated by doctor: No Past Medical History - General Information source: Patient - Social History Smoking Status: Unknown if Ever Smoked Frequency of alcohol use: None Drug Abuse: None Lives with: Family Family History: Reviewed & Not Pertinent Patient has suicidal ideation: No Patient has homicidal ideation: No - Past Medical History Cardiac Medical History: Reports: Hx Hypertension Pulmonary Medical History: Reports: Hx Asthma Endocrine Medical History: Reports: Hx Diabetes Mellitus Type 2 - Reversed after gastric bypass Renal/ Medical History: Denies: Hx Peritoneal Dialysis Traumatic Medical History: Reports: Hx Fractures Past Surgical History: Reports: Hx Abdominal Surgery, Hx Appendectomy, Hx Bowel Surgery, Hx Gastric Bypass Surgery, Hx Orthopedic Surgery - Immunizations Hx Diphtheria, Pertussis, Tetanus Vaccination: Yes Vertical Provider Document - CONSTITUTIONAL Agree With Documented VS: Yes Exam Limitations: No Limitations General Appearance: WD/WN, No Apparent Distress - INFECTION CONTROL TRAVEL OUTSIDE OF THE [place] IN LAST 30 DAYS: No - HEENT HEENT: Atraumatic, Normocephalic - NECK Neck: Supple - RESPIRATORY Respiratory: No Respiratory Distress - CARDIOVASCULAR Cardiovascular: Regular Rate - MUSCULOSKELETAL/EXTREMETIES Musculoskeletal/Extremeties: MAEW, FROM, Tender - left hand and wrist ttp medially, some schapoid ttp, no obvious deformity, cap refill <3 sec, radial pulse +3. - NEURO Level of Consciousness: Awake, Alert, Appropriate - DERM Integumentary: Warm, Dry Adult Front & Back Diagram: 1 - ttp Course - Re-evaluation Re-evalutation: 11/03/19 15:17 Hand X-Ray 11/03/19 14:32 IMPRESSION: No acute fracture or dislocation of the left hand or wrist. Wrist X-Ray 11/03/19 14:32 IMPRESSION: No acute fracture or dislocation of the left hand or wrist. Shoulder X-Ray 11/03/19 14:37 IMPRESSION: NEGATIVE STUDY OF THE LEFT SHOULDER. NO RADIOGRAPHIC EVIDENCE OF ACUTE INJURY. 11/03/19 15:25 Patient presents to the emergency department with some left hand wrist and shoulder pain after he fell 2 days ago. X-rays are negative for acute fracture but he does have some tenderness in the scaphoid area. Patient will be placed in a thumb spica and sling. Patient was instructed on the importance of follow- up with orthopedic. He does report he has an appointment with orthopedic next week to evaluate the same shoulder. Reports he has had pain with the shoulder for quite a while and they do not know why. He was instructed on negative x- rays instructed on thumb spica for possible occult scaphoid fracture. He was instructed to follow-up with his orthopedic within the next week. He verbalized understanding to all instructions. - Vital Signs Vital signs: Temp Pulse Resp BP Pulse Ox 99.9 F 96 16 115/77 96 11/03/19 14:21 11/03/19 14:21 11/03/19 14:21 11/03/19 14:21 11/03/19 14:21 - Diagnostic Test Radiology reviewed: Image reviewed, Reports reviewed Procedures - Immobilization Left Wrist Pre-Proc Neuro Vasc Exam: Normal Immobilizer type: Thumb spica - short, Sling Performed by: PCT Post-Proc Neuro Vasc Exam: Unchanged from pre-exam Alignment checked and good: Yes Discharge - Discharge Clinical Impression: left hand and wrist injury Left shoulder pain Qualifiers: Chronicity: unspecified Qualified Code(s): M25.512 - Pain in left shoulder Condition: Stable Disposition: HOME, SELF-CARE Instructions: Ice & Elevation ([facility]), Temporary Sling ([facility]), Temporary Splint ([facility]) Additional Instructions: *You have been evaluated for left shoulder, hand and wrist injury *Your x-rays did not show an acute fracture. Due to your tenderness in your scaphoid area I am concerned about a possible hidden fracture. *Maintain the splint and sling *Rest/Ice/Elevate your wrist *Follow up with orthopedics for an evaluation within one week *Take your pain medication as prescribed *Return to ED for worsening condition, changes, needs Referrals: JHONNY MANJARREZ PA-C [Primary Care Provider] - Follow up in 3-5 days
--- NOTE | 2019-11-03 15:16 | RADIOLOGY REPORT (SQ) ---
EXAM DESCRIPTION: SHOULDER LEFT 2 OR MORE VIEWS IMAGES COMPLETED DATE/TIME: 11/03/2019 1:55 pm REASON FOR STUDY: pain fell. Fell 2 days ago. Anterior and posterior shoulder pain. COMPARISON: None. NUMBER OF VIEWS: Three views. TECHNIQUE: Internal rotation, external rotation, and Y view images acquired of the left shoulder. LIMITATIONS: None. FINDINGS: MINERALIZATION: Normal. BONES: No acute fracture. No worrisome bone lesions. JOINTS: Mild osteoarthritis of the acromioclavicular joint. Normal glenohumeral joint space alignmen t. VISUALIZED LUNGS AND RIBS: No pneumothorax. No rib fracture. SOFT TISSUES: No radiopaque foreign body. OTHER: No other significant finding. IMPRESSION: NEGATIVE STUDY OF THE LEFT SHOULDER. NO RADIOGRAPHIC EVIDENCE OF ACUTE INJURY. TECHNICAL DOCUMENTATION: JOB ID: [id number] 2010 [employer]- All Rights Reserved Reading location - IP/workstation name: [email or web address]
--- NOTE | 2019-11-03 15:16 | RADIOLOGY REPORT (SQ) ---
EXAM DESCRIPTION: HAND LEFT 3 VIEWS; WRIST LEFT 3 VIEWS IMAGES COMPLETED DATE/TIME: 11/03/2019 1:55 pm REASON FOR STUDY: fall pain. Fell 2 days ago with pain in the proximal hand. COMPARISON: None. EXAM PARAMETERS: NUMBER OF VIEWS: Three views. TECHNIQUE: AP, lateral and oblique radiographic images acquired of the left hand and wrist. LIMITATIONS: None. FINDINGS: MINERALIZATION: Normal. BONES: No acute fracture or dislocation. No worrisome bone lesions. JOINTS: No effusions. SOFT TISSUES: No soft tissue swelling. No foreign body. OTHER: No other significant finding. IMPRESSION: No acute fracture or dislocation of the left hand or wrist. TECHNICAL DOCUMENTATION: JOB ID: [id number] 2010 [employer]- All Rights Reserved Reading location - IP/workstation name: [email or web address]
--- NOTE | 2019-11-03 15:16 | RADIOLOGY REPORT (SQ) ---
EXAM DESCRIPTION: HAND LEFT 3 VIEWS; WRIST LEFT 3 VIEWS IMAGES COMPLETED DATE/TIME: 11/03/2019 1:55 pm REASON FOR STUDY: fall pain. Fell 2 days ago with pain in the proximal hand. COMPARISON: None. EXAM PARAMETERS: NUMBER OF VIEWS: Three views. TECHNIQUE: AP, lateral and oblique radiographic images acquired of the left hand and wrist. LIMITATIONS: None. FINDINGS: MINERALIZATION: Normal. BONES: No acute fracture or dislocation. No worrisome bone lesions. JOINTS: No effusions. SOFT TISSUES: No soft tissue swelling. No foreign body. OTHER: No other significant finding. IMPRESSION: No acute fracture or dislocation of the left hand or wrist. TECHNICAL DOCUMENTATION: JOB ID: [id number] 2010 [email or web address]- All Rights Reserved Reading location - IP/workstation name: [email or web address]
== END 2019-11-03 15:30 | disposition home or self-care (01) ==
LOC: ER 14:18
DX: S69.92XA Unspecified injury of left wrist, hand and finger(s), initial encounter (principal); M25.512 Pain in left shoulder; W01.0XXA Fall on same level from slipping, tripping and stumbling without subsequent striking against object, initial encounter; I10 Essential (primary) hypertension; Z98.84 Bariatric surgery status
CPT/HCPCS: 99283

== ENCOUNTER → 2019-11-27 | Outpatient (CLI) | payer MEDICARE | LOC: RAD 12:18 | PROVIDERS: ATTEND Orthopaedic Surgery | DX: M75.52 Bursitis of left shoulder (principal) ==

== ENCOUNTER 2019-11-29 19:49 | Emergency (ER) | payer MEDICARE ==
--- NOTE | 2019-11-29 20:20 | ER Document Report ---
ED Medical Screen (RME) - General Chief Complaint: Finger Injury Stated Complaint: FINGER INJURY Time Seen by Provider: 11/29/19 20:17 Primary Care Provider: CATALINA EISENBERG DO [Primary Care Provider] - Follow up as needed Mode of Arrival: Ambulatory Information source: Patient Notes: 59-year-old male presented to the ED for concerns of change in the color and circulation to his hands and a new heart murmur at his primary doctors today. He states he went and saw Priscila patino for regular scheduled visit and she told to come straight to the ED because he had a change in the color of her his hands and his nailbeds were much paler than normal and that she heard a new heart murmur today. He states he was very concerned after she told him that so he went home took care of business and he came to the emergency room. He states he does not smoke he does drink 2-3 beers a day and does not do any drugs. He has no cardiac history that he knows of. Patient is alert oriented respirations regular and unlabored speaking in full sentences. O2 sat was 99 to 100% in the pit area I have greeted and performed a rapid initial assessment of this patient. A comprehensive ED assessment and evaluation of the patient, analysis of test results and completion of medical decision making process will be conducted by an additional ED providers. TRAVEL OUTSIDE OF THE [place] IN LAST 30 DAYS: No - Related Data Allergies/Adverse Reactions: No Known Allergies Allergy (Verified 11/29/19 20:05) Past Medical History - Past Medical History Cardiac Medical History: Reports: Hx Hypertension Pulmonary Medical History: Reports: Hx Asthma Endocrine Medical History: Reports: Hx Diabetes Mellitus Type 2 - Reversed after gastric bypass Renal/ Medical History: Denies: Hx Peritoneal Dialysis Traumatic Medical History: Reports: Hx Fractures Past Surgical History: Reports: Hx Abdominal Surgery, Hx Appendectomy, Hx Bowel Surgery, Hx Gastric Bypass Surgery, Hx Orthopedic Surgery - Immunizations Hx Diphtheria, Pertussis, Tetanus Vaccination: Yes Physical Exam - Vital signs Vitals: Temp Pulse Resp BP Pulse Ox 98.4 F 81 16 139/82 H 96 11/29/19 19:56 11/29/19 19:56 11/29/19 19:56 11/29/19 19:56 11/29/19 19:56 Course - Vital Signs Vital signs: Temp Pulse Resp BP Pulse Ox 98.4 F 81 16 139/82 H 96 11/29/19 19:56 11/29/19 19:56 11/29/19 19:56 11/29/19 19:56 11/29/19 19:56 Doctor's Discharge - Discharge Referrals: CATALINA EISENBERG DO [Primary Care Provider] - Follow up as needed
[2019-11-29 20:56] LABS: ABSOLUTE EOSINOPHILS # (AUTO) 0.1 10^3/uL (0.0-0.6); ABSOLUTE LYMPHOCYTES (AUTO) 1.9 10^3/uL (0.5-4.7); ABSOLUTE MONOCYTES (AUTO) 0.6 10^3/uL (0.1-1.4); ABSOLUTE NEUT (AUTO) 3.4 10^3/uL (1.7-8.2); BASOPHILS % (AUTO) 0.5 % (0-2); EOSINOPHILS % (AUTO) 2.1 % (0-6); HEMATOCRIT 33.2 % (37.9-51.0); HEMOGLOBIN 11.6 g/dL (13.5-17.0); LYMPHOCYTES % (AUTO) 31.7 % (13-45); MEAN CORPUSCULAR HEMOGLOBIN 29.7 pg (27.0-33.4); MEAN CORPUSCULAR HGB CONC 34.8 g/dL (32.0-36.0); MEAN CORPUSCULAR VOLUME 85 fl (80-97); MONOCYTES % (AUTO) 10.5 % (3-13); PLATELET COUNT 284 10^3/uL (150-450); RED BLOOD COUNT 3.89 10^6/uL (4.35-5.55); SEGMENTED NEUTROPHILS % (AUTO) 55.2 % (42-78); TOTAL CELLS COUNTED % (AUTO) 100 %; WHITE BLOOD COUNT 6.1 10^3/uL (4.0-10.5)
[2019-11-29 21:15] LABS: ALBUMIN 3.7 g/dL (3.5-5.0); ALKALINE PHOSPHATASE 136 U/L (38-126); ASPARTATE AMINO TRANSFERASE 45 U/L (17-59); BILIRUBIN,TOTAL 0.5 mg/dL (0.2-1.3); BLOOD UREA NITROGEN 22 mg/dL (7-20); CALCIUM 9.1 mg/dL (8.4-10.2); CHLORIDE 98 mmol/L (98-107); GLUCOSE 97 mg/dL (75-110); POTASSIUM 4.1 mmol/L (3.6-5.0); TOTAL PROTEIN 6.7 g/dL (6.3-8.2)
[2019-11-29 21:20] LABS: ANION GAP 5 (5-19); CARBON DIOXIDE 35 mmol/L (22-30)
--- NOTE | 2019-11-29 22:20 | ER Document Report ---
ED General - General Chief Complaint: Finger Injury Stated Complaint: FINGER INJURY Time Seen by Provider: 11/29/19 20:17 Primary Care Provider: CATALINA EISENBERG DO [ACTIVE STAFF] - Follow up as needed Mode of Arrival: Ambulatory TRAVEL OUTSIDE OF THE [place] IN LAST 30 DAYS: No - HPI Notes: Chief complaint: Discoloration of fingers and toes History of present illness: 59-year-old male with a history of chronic depression, cataplexy, narcolepsy chronic pain syndrome and degenerative disc disease sent here from the office by his primary care provider, Priscila Collier, because she is noticed that he has significant discoloration of his fingers and toes and also thought she heard a new systolic cardiac murmur today. This gentleman really has no other significant new complaints today. He denies fever or chills. He denies chest pain. He denies palpitations. He denies any h istory of IV drug abuse. He denies abuse of alcohol. He is a past cigarette smoker but says he has not smoked and over 15 years. I reviewed his current medications and none of the current agents he is taking appear to be vasoconstrictors. He does not describe any significant pain in his fingers or toes. He has had no ulcerations. He denies arthritic symptoms. He denies family history of collagen vascular diseases. - Related Data Allergies/Adverse Reactions: No Known Allergies Allergy (Verified 11/29/19 20:05) Home Medications: pregabalin, nortiptyline, baclofen, synthroid, omeprazole, velafaxine, bupropion, losartan/hctz, tamsulosin, morphine Past Medical History - General Information source: Patient - Social History Smoking Status: Former Smoker Chew tobacco use (# tins/day): No Frequency of alcohol use: Social Family History: Reviewed & Not Pertinent Patient has homicidal ideation: No - Past Medical History Cardiac Medical History: Reports: Hx Hypertension Pulmonary Medical History: Reports: Hx Asthma Endocrine Medical History: Reports: Hx Diabetes Mellitus Type 2 - Reversed after gastric bypass Renal/ Medical History: Denies: Hx Peritoneal Dialysis GI Medical History: Reports: Hx Gastroesophageal Reflux Disease Traumatic Medical History: Reports: Hx Fractures Past Surgical History: Reports: Hx Abdominal Surgery, Hx Appendectomy, Hx Bowel Surgery, Hx Gastric Bypass Surgery, Hx Orthopedic Surgery - Immunizations Hx Diphtheria, Pertussis, Tetanus Vaccination: Yes Review of Systems - Review of Systems Notes: Constitutional: Negative for fever. HENT: Negative for sore throat. Eyes: Negative for visual changes. Cardiovascular: Negative for chest pain. Respiratory: Negative for shortness of breath. Gastrointestinal: Negative for abdominal pain, vomiting or diarrhea. Genitourinary: Negative for dysuria. Musculoskeletal: Chronic lower back pain. Skin: Negative for rash. Neurological: Negative for headaches, weakness or numbness. 10 point ROS negative except as marked above and in HPI. Physical Exam - Vital signs Vitals: Temp Pulse Resp BP Pulse Ox 98.4 F 81 16 139/82 H 96 11/29/19 19:56 11/29/19 19:56 11/29/19 19:56 11/29/19 19:56 11/29/19 19:56 - Notes Notes: GENERAL: Male patient of approximately stated age appearing in no acute distress. SKIN: Good turgor. Erythema of hands and feet with some pallor of nailbeds. No ulcerations present. No splinter hemorrhages of nailbeds present HEAD: Normocephalic atraumatic. EYES: PERRLA. EOMI. Conjunctivae and sclerae clear. EARS: CANALS AND TMS CLEAR. NOSE: CLEAR. MOUTH: Moist mucosa. Edentulous. No stridor or edema. No drooling. NECK: Supple. No masses or thyromegaly. No adenopathy. Carotids 2+ without bruits. No JVD. BACK: Symmetrical without tenderness. Old lumbar laminectomy scars present. CHEST: Respirations unlabored. Breath sounds clear and symmetrical. HEART: Regular rhythm. Grade 2 systolic murmur heard left second interspace without transmission. No diastolic murmur. No gallop or rub. ABDOMEN: Soft nontender without masses, organomegaly or rebound. Bowel sounds normally active. No bruits. GENITALIA: Deferred. EXTREMITIES: Skin changes of digits as noted above. Patient has 2+ clubbing of the nailbeds of fingers on both hands. No edema. No calf tenderness. Cap refill less than 1.5 seconds. Dorsalis pedis and posterior tibial pulses 3+ and symmetrical. NEUROLOGICAL: GCS 15. Alert and oriented x3. Normal gait. Fluent speech. Cranial nerves II through XII intact. Sensorimotor and cerebellar normal. Normal tone. PSYCHIATRIC: Appropriate affect. Course - Re-evaluation Re-evalutation: 11/29/19 23:15 The patient appears to have Raynaud's phenomenon. He is not a current smoker although he has been in the past. He does not give any history of any type of collagen vascular disease or symptoms that would be suggestive of undiagnosed collagen vascular disease. He is on a large number of medications which I have reviewed with him. All of these current agents I note that he is taking some chronic morphine for chronic pain syndrome related to his failed back surgery. I think in this case this is likely to be the responsible agent unfortunately. His cardiac murmur is a systolic murmur which is very subtle. I suspect this is not clinically related to his current findings. I note that he has a completely normal EKG he is not having any chest pain or cardiac symptoms. He also has a normal chest x-ray per radiologist. I suggested that he talk with his primary provider about getting an outpatient echocardiogram electively. He certainly does not have any fever or elevation of white count or other factors that would suggest anything like an acute endocarditis. He appears very stable for outpatient follow-up with PMD. - Vital Signs Vital signs: Temp Pulse Resp BP Pulse Ox 98.4 F 81 16 139/82 H 96 11/29/19 20:06 11/29/19 19:56 11/29/19 19:56 11/29/19 19:56 11/29/19 19:56 - Laboratory Result Diagrams: 11/29/19 20:35 11/29/19 20:35 Laboratory results interpreted by me: 11/29/19 11/29/19 20:35 20:35 RBC 3.89 L Hgb 11.6 L Hct 33.2 L Carbon Dioxide 35 H BUN 22 H Alkaline Phosphatase 136 H Discharge - Discharge Clinical Impression: Raynaud's phenomenon (by history or observed) Qualifiers: Raynaud?s-associated gangrene presence: without gangrene Qualified Code(s): I73.00 - Raynaud's syndrome without gangrene Condition: Stable Disposition: HOME, SELF-CARE Additional Instructions: Return for follow-up with your primary care provider. Discussed potential role of chronic morphine administration producing Raynaud's phenomenon. You may also wish to discuss obtaining an elective outpatient ECHOCARDIOGRAM. Return here as needed for new or worsening symptoms: Pain that is worsening or unimproved Uncontrolled vomiting High fever or shaking chills Overall worsening Referrals: CATALINA EISENBERG, [ACTIVE STAFF] - Follow up as needed
--- NOTE | 2019-11-29 22:27 | EKG REPORT ---
SEVERITY:- NORMAL ECG - SINUS RHYTHM : Confirmed by: Yuliya Rdz MD 29-Nov-2019 22:26:51
--- NOTE | 2019-11-29 22:40 | RADIOLOGY REPORT (SQ) ---
EXAM DESCRIPTION: XR CHEST 2 VIEWS COMPLETED DATE/TME: 11/29/2019 22:11 CLINICAL HISTORY: 59 years Male, Cardiac murmur COMPARISON: 10/16/16 NUMBER OF VIEWS/TECHNIQUE: 2, Frontal, Lateral FINDINGS: Mild elevation of the left hemidiaphragm. Atherosclerosis. Increased right lung volume. Mild deformity of the distal left clavicle and mild osteoarthritis of the left acromioclavicular joint. Stable Adequate lung volume, clear parenchyma, normal cardiac silhouette, and intact bony thorax. IMPRESSION: No acute cardiopulmonary findings.
[2019-11-29 23:29] VITALS: BP 136/78
== END 2019-11-29 23:35 | disposition home or self-care (01) ==
LOC: ER 19:49
DX: I73.00 Raynaud's syndrome without gangrene (principal); R01.1 Cardiac murmur, unspecified; I10 Essential (primary) hypertension; E11.9 Type 2 diabetes mellitus without complications; J45.909 Unspecified asthma, uncomplicated; K21.9 Gastro-esophageal reflux disease without esophagitis; M54.5 Low back pain; G89.4 Chronic pain syndrome; Z79.899 Other long term (current) drug therapy; Z79.891 Long term (current) use of opiate analgesic; Z87.891 Personal history of nicotine dependence; Z98.84 Bariatric surgery status
CPT/HCPCS: 36415; 71046; 80053; 80307; 85025; 93005; 93010; 99284

== ENCOUNTER 2020-01-31 15:09 | Inpatient (IN) | payer MEDICARE ==
--- NOTE | 2020-01-31 15:42 | ER Document Report ---
ED General - General Chief Complaint: Syncope Stated Complaint: POSSIBLE SYNCOPE Time Seen by Provider: 01/31/20 15:39 Primary Care Provider: JHONNY MANJARREZ PA-C [Primary Care Provider] - Follow up as needed Notes: HPI: Patient is a 59-year-old male presents today stating that he went up to use the bathroom last night and at 3 in the morning sat on the toilet and woke up on the toilet at 8 AM. He states he had some numbness to bilateral legs when he awoke. Patient states he has a history of cataplexy, narcolepsy, and conversion disorder along with the other past medical history as recorded. He states he has taken his medications appropriately. Denies any headache, neck pain, chest pain, abdominal pain, fevers, vomiting, weakness of the legs. He did have one bout of nonbloody diarrhea in the last 24 hours. He denies any lightheadedness or dizziness. ROS: See HPI All other review of systems reviewed and otherwise negative Reviewed vital signs and nursing note as charted by RN. PHYSICAL EXAM: CONSTITUTIONAL: Alert and oriented and responds appropriately to questions. Well-appearing; well-nourished HEAD: Normocephalic; atraumatic EYES: PERRL; full extraocular range of motion without nystagmus ENT: Normal nose; no rhinorrhea; moist mucous membranes; pharynx without lesions noted NECK: Supple without meningismus; non-tender; no carotid bruit; no cervical lymphadenopathy, no masses CARD: Regular rate and rhythm; no murmurs; symmetric distal pulses RESP: Normal chest excursion without splinting or tachypnea; breath sounds clear and equal bilaterally; no wheezes, no rhonchi, no rales ABD/GI: Normal bowel sounds; non-distended; soft, non-tender; no palpable organomegaly or masses BACK: The back appears normal with old surgical back scars present; no erythema, swelling, step-offs, or focal tenderness EXT: Normal ROM in all joints; mild tenderness to left wrist with any obvious swelling or deformity SKIN: No acute lesions noted NEURO: CN 2-12 intact; 5/5 bilateral upper and lower extremity strength with sensation intact to light touch; normal cerebellar exam PSYCH: The patient's mood and manner are appropriate. Grooming and personal hygiene are appropriate. TRAVEL OUTSIDE OF THE [place] IN LAST 30 DAYS: No - Related Data Allergies/Adverse Reactions: No Known Allergies Allergy (Verified 01/31/20 15:45) Past Medical History - Social History Smoking Status: Unknown if Ever Smoked Family History: Reviewed & Not Pertinent - Past Medical History Cardiac Medical History: Reports: Hx Hypertension Pulmonary Medical History: Reports: Hx Asthma Endocrine Medical History: Reports: Hx Diabetes Mellitus Type 2 - Reversed after gastric bypass Renal/ Medical History: Denies: Hx Peritoneal Dialysis GI Medical History: Reports: Hx Gastroesophageal Reflux Disease Traumatic Medical History: Reports: Hx Fractures Past Surgical History: Reports: Hx Abdominal Surgery, Hx Appendectomy, Hx Bowel Surgery, Hx Gastric Bypass Surgery, Hx Orthopedic Surgery - Immunizations Hx Diphtheria, Pertussis, Tetanus Vaccination: Yes Physical Exam - Vital signs Vitals: Temp Pulse Resp BP Pulse Ox 98.2 F 88 20 119/68 97 01/31/20 15:17 01/31/20 15:17 01/31/20 15:17 01/31/20 15:17 01/31/20 15:17 Course - Re-evaluation Re-evalutation: Given the past medical history we will obtain basic labs, EKG, troponin, urine analysis, and reassess. Patient has full range of motion of the legs with no swelling, edema, weakness, or numbness. Patient states his legs are very numb after he awoke at 8 AM. I believe this is most likely secondary to sitting on the toilet for 5 hours. Given the complicated history of narcolepsy, cataplexy, conversion disorder, following a size painter, if the work-up is unremarkable, believe that the patient most likely can be discharged home with strict return precautions. 01/31/20 15:41 EKG shows a heart rate of 88, normal sinus rhythm, normal axis, no ST elevation or depression. PACs present. 01/31/20 17:43 Labs as recorded. Some transaminitis is present. AST much more than ALT. Normal bilirubin. No abdominal pain. CK total was 11,000. Creatinine is gone up from 0.92-3.81. It was elevated earlier in the year. I did call the automobile spring repairer and the patient states that he is only had some kidney problems starting this year. Potassium is actually low. I will provide a liter of fluid and some p.o. potassium replacement and admit the patient to the hospitalist for further evaluation and treatment. - Vital Signs Vital signs: Temp Pulse Resp BP Pulse Ox 98.2 F 88 20 119/68 97 01/31/20 15:17 01/31/20 15:17 01/31/20 15:17 01/31/20 15:17 01/31/20 15:17 - Laboratory Result Diagrams: 01/31/20 15:32 01/31/20 16:30 Laboratory results interpreted by me: 01/31/20 01/31/20 01/31/20 15:32 15:32 16:30 RBC 4.33 L Hgb 12.3 L Hct 36.8 L RDW 14.4 H [place] % (Auto) 15.9 H Sodium 129.3 L Potassium 3.1 L Chloride 96 L BUN 41 H Creatinine 3.81 H Est GFR ( Amer) 20 L Est GFR (MDRD) Non-Af 16 L Calcium 8.3 L AST 261 H ALT 67 H Alkaline Phosphatase 127 H Creatine Kinase 03802 H CK-MB (CK-2) 259.00 H Critical Care Note - Critical Care Note Total time excluding time spent on procedures (mins): 35 Discharge - Discharge Clinical Impression: Transaminitis Syncope Qualifiers: Syncope type: unspecified Qualified Code(s): R55 - Syncope and collapse Acute renal failure Qualifiers: Acute renal failure type: unspecified Qualified Code(s): N17.9 - Acute kidney failure, unspecified Rhabdomyolysis Qualifiers: Rhabdomyolysis type: non-traumatic Qualified Code(s): M62.82 - Rhabdomyolysis Condition: Fair Disposition: ADMITTED INPATIENT Admitting Provider: Leann (Hospitalist) Unit Admitted: Medical Floor Referrals: JHONNY MANJARREZ PA-C [Primary Care Provider] - Follow up as needed
[2020-01-31 16:00] LABS: ABSOLUTE NEUT (AUTO) 4.1 10^3/uL (1.7-8.2); BASOPHILS % (AUTO) 0.2 % (0-2); EOSINOPHILS % (AUTO) 0.3 % (0-6); HEMATOCRIT 36.8 % (37.9-51.0); HEMOGLOBIN 12.3 g/dL (13.5-17.0); LYMPHOCYTES % (AUTO) 16.8 % (13-45); MEAN CORPUSCULAR HEMOGLOBIN 28.5 pg (27.0-33.4); MEAN CORPUSCULAR HGB CONC 33.5 g/dL (32.0-36.0); MEAN CORPUSCULAR VOLUME 85 fl (80-97); MONOCYTES % (AUTO) 15.9 % (3-13); PLATELET COUNT 267 10^3/uL (150-450); RED BLOOD COUNT 4.33 10^6/uL (4.35-5.55); RED CELL DISTRIBUTION WIDTH 14.4 % (11.5-14.0); SEGMENTED NEUTROPHILS % (AUTO) 66.8 % (42-78); TOTAL CELLS COUNTED % (AUTO) 100 %; WHITE BLOOD COUNT 6.2 10^3/uL (4.0-10.5)
[2020-01-31] MEDS ORDERED: OXYCODONE-ACETAMINOPHEN 5-325 MG TABLET PO ONE (16:07)
[2020-01-31 16:26] LABS: TROPONIN I 0.024 ng/mL
--- NOTE | 2020-01-31 17:08 | RADIOLOGY REPORT (SQ) ---
EXAM DESCRIPTION: WRIST LEFT 3 VIEWS IMAGES COMPLETED DATE/TIME: 01/31/2020 4:58 pm REASON FOR STUDY: 35; fall COMPARISON: 11/03/2019. NUMBER OF VIEWS: Three views. TECHNIQUE: AP, lateral, and oblique radiographic images acquired of the left wrist. LIMITATIONS: None. FINDINGS: MINERALIZATION: Normal. BONES: No acute fracture or dislocation. No worrisome bone lesions. Normal alignment. SOFT TISSUES: No soft tissue swelling. No foreign body. OTHER: No other significant finding. IMPRESSION: NEGATIVE STUDY OF THE LEFT WRIST. NO RADIOGRAPHIC EVIDENCE OF ACUTE INJURY. TECHNICAL DOCUMENTATION: JOB ID: [id number] 2010 [employer]- All Rights Reserved Reading location - IP/workstation name: [email or web address]
[2020-01-31 17:16] LABS: ALBUMIN 3.7 g/dL (3.5-5.0); ALKALINE PHOSPHATASE 127 U/L (38-126); ANION GAP 11 (5-19); ASPARTATE AMINO TRANSFERASE 261 U/L (17-59); BILIRUBIN,DIRECT 0.1 mg/dL (0.0-0.4); BILIRUBIN,TOTAL 0.5 mg/dL (0.2-1.3); BLOOD UREA NITROGEN 41 mg/dL (7-20); CALCIUM 8.3 mg/dL (8.4-10.2); CARBON DIOXIDE 22 mmol/L (22-30); CHLORIDE 96 mmol/L (98-107); GLUCOSE 101 mg/dL (75-110); POTASSIUM 3.1 mmol/L (3.6-5.0); TOTAL PROTEIN 6.9 g/dL (6.3-8.2)
[2020-01-31 17:33] LABS: CREATINE KINASE 11522 U/L (55-170)
[2020-01-31] MEDS ORDERED: NORMAL SALINE 1000 ML 1,000 ML IV ONE (17:43)
[2020-01-31] MEDS ORDERED: POTASSIUM CHLORIDE 10 MEQ TABLET.ER PO ONE (17:49)
[2020-01-31] MEDS ORDERED: PROMETHAZINE HCL INJ 25 MG/1 ML VIAL IV PRN (19:59)
[2020-01-31] MEDS ORDERED: MAGNESIUM HYDROXIDE SUSP 30 ML UDCUP PO PRN (19:59)
[2020-01-31] MEDS ORDERED: ACETAMINOPHEN 325 MG TABLET PO PRN (19:59)
[2020-01-31] MEDS ORDERED: NORMAL SALINE 1000 ML 1,000 ML IV PRN (19:59)
[2020-01-31] MEDS ORDERED: MAG HYDROX/AL HYDROX/SIMETH SUSP 30 ML UDCUP PO PRN (19:59)
--- NOTE | 2020-01-31 21:04 | PDOC H&P ---
History of Present Illness Admission Date/PCP: 01/31/20 18:14 JHONNY MANJARREZ PA-C Patient complains of: Passed out History of Present Illness: DAREN BARGER is a 59 year old male who over the last 7 months has had multiple visits to the emergency department. He is quite restless in bed and has a manic presentation. He has a history of narcolepsy and cataplexy. The patient states that he was sitting on his toilet and passed out. He remembers being on the floor but not much else. He denies any sore areas from contusions. Laboratory evaluation reveals a creatinine kinase level of 11,522. AST is 261 with an ALT of 67 and a ratio of 3.8. BUN is 41 with creatinine of 3.81. His GFR is only 16. He has had a presentation of acute kidney injury in the past but his most recent serum creatinine was 0.92. He is hyponatremic with a sodium of 129 and hypokalemic with a potassium of 3.1. He has a serum calcium level that is barely below the lower limit normal. His serum albumin is normal. The vital signs are stable. He did have a renal ultrasound in August which showed atrophy of the right kidney and changes consistent with chronic kidney disease. He could not tell me his medications. He does have psoriasis. He states that he has had multiple surgeries in the past and was able to name most of them. His ability to recall specific details about family history was limited as well. He will be admitted to the hospitalist service with rhabdomyolysis and associated acute kidney injury. He will be given aggressive IV fluids with correction of his potassium and sodium. We will monitor his creatinine kinase with serial blood tests. He will have daily chemistries to check his electrolytes and renal function. He has seen Dr. Cornejo before and so I will likely request a renal consult. Past Medical History Cardiac Medical History: Reports: Hypertension Pulmonary Medical History: Reports: Asthma Endocrine Medical History: Reports: Diabetes Mellitus Type 2 - Reversed after gastric bypass, Hypothyroidism, Obesity Renal/ Medical History: Reports: Other - Previous episode of acute kidney injury GI Medical History: Reports: Gastroesophageal Reflux Disease Skin Medical History: Reports: Psoriasis Psychiatric Medical History: Reports: Alcohol Dependency, Tobacco Dependency, Other - Narcolepsy and cataplexy Denies: Substance Abuse Hematology: Denies: Anemia, Bleeding Tendencies Past Surgical History Past Surgical History: Reports: Appendectomy, Cholecystectomy, Gastric Bypass Surgery, Orthopedic Surgery Social History Information Source: Patient, [facility] Lives with: Spouse/Significant other Smoking Status: Former Smoker Electronic Cigarette use?: No Frequency of Alcohol Use: Social - He drinks beer. He consumes 3-4 sixpacks per week Hx Recreational Drug Use: No Drugs: None Hx Prescription Drug Abuse: No - Advance Directive Resuscitation Status: Full Code Family History Family History: Reviewed & Not Pertinent, Hypertension Parental Family History Reviewed: Yes Children Family History Reviewed: Yes Sibling(s) Family History Reviewed.: Yes Medication/Allergy Home Medications: Baclofen [Baclofen 10 mg Tablet] 10 mg PO TID 11/29/19 Bupropion HCl [Wellbutrin 75 Mg Tablet] 75 mg PO TID 11/29/19 Levothyroxine Sodium 75 mcg PO DAILY 11/29/19 Losartan/Hydrochlorothiazide [Losartan-Hctz 100-25 mg Tab] 1 each PO DAILY 11/29/19 Morphine Sulfate [Morphine Ir 30 mg Tablet] 30 mg PO BID 11/29/19 Nortriptyline HCl [Pamelor 10 mg Capsule] 10 mg PO TID 11/29/19 Omeprazole 20 mg PO DAILY 11/29/19 Pregabalin 75 mg PO TID 11/29/19 Tamsulosin HCl [Flomax] 0.4 mg PO DAILY 11/29/19 Venlafaxine HCl [Effexor 75 mg Tablet] 75 mg PO TID 11/29/19 Allergies/Adverse Reactions: No Known Allergies Allergy (Verified 01/31/20 15:45) Review of Systems All systems: reviewed and no additional remarkable complaints except as stated Gastrointestinal: PRESENT: heartburn Integumentary: PRESENT: other - Psoriasis Neurological: PRESENT: other - Narcolepsy and cataplexy Psychiatric: PRESENT: other - Manic presentation Physical Exam Vital Signs: Temp Pulse Resp BP Pulse Ox 98.2 F 88 20 119/68 97 01/31/20 15:17 01/31/20 15:17 01/31/20 15:17 01/31/20 15:17 01/31/20 15:17 Intake & Output 01/30/20 01/31/20 02/01/20 06:59 06:59 06:59 Intake Total 1000 Balance 1000 Weight 95.1 kg General appearance: PRESENT: no acute distress, cooperative, well-developed Head exam: PRESENT: atraumatic, normocephalic Eye exam: PRESENT: conjunctiva pink, EOMI. ABSENT: scleral icterus Ear exam: PRESENT: normal external ear exam. ABSENT: bleeding, drainage Mouth exam: PRESENT: dry mucosa, tongue midline Neck exam: ABSENT: carotid bruit, JVD, lymphadenopathy, tracheal deviation, tracheostomy Respiratory exam: PRESENT: clear to auscultation david, symmetrical, unlabored. ABSENT: crackles, rales, rhonchi, tachypnea, wheezes Cardiovascular exam: PRESENT: RRR, +S1, +S2, systolic murmur - 3/6. ABSENT: bradycardia, tachycardia GI/Abdominal exam: PRESENT: normal bowel sounds, soft, tenderness - Slightly tender at the distal portion of his midline scar. He states this is chronic.. ABSENT: distended Rectal exam: PRESENT: deferred Gentrourinary exam: ABSENT: indwelling catheter Extremities exam: ABSENT: joint swelling, pedal edema Musculoskeletal exam: PRESENT: ambulatory, normal inspection. ABSENT: deformity, dislocation Neurological exam: PRESENT: alert, awake, oriented to person, oriented to place, oriented to situation, CN II-XII grossly intact Psychiatric exam: PRESENT: anxious, manic Focused psych exam: ABSENT: delusional, paranoid, restlessness Skin exam: PRESENT: dry, warm, other - Multiple psoriatic lesions on extremities and trunk. Excoriations on the leg lesions. ABSENT: erythema Results Laboratory Results: 01/31/20 15:32 01/31/20 16:30 01/31/20 01/31/20 01/31/20 15:32 15:32 16:30 WBC 6.2 RBC 4.33 L Hgb 12.3 L Hct 36.8 L MCV 85 MCH 28.5 MCHC 33.5 RDW 14.4 H Plt Count 267 Seg Neutrophils % 66.8 Sodium Cancelled 129.3 L Potassium Cancelled 3.1 L Chloride Cancelled 96 L Carbon Dioxide Cancelled 22 Anion Gap Cancelled 11 BUN Cancelled 41 H Creatinine Cancelled 3.81 H Est GFR ( Amer) Cancelled 20 L Est GFR (Non-Af Amer) Cancelled Glucose Cancelled 101 Calcium Cancelled 8.3 L Total Bilirubin Cancelled 0.5 AST Cancelled 261 H Alkaline Phosphatase Cancelled 127 H Total Protein Cancelled 6.9 Albumin Cancelled 3.7 01/31/20 01/31/2001/30/20 15:32 15:32 16:30 Creatine Kinase Cancelled 70434 H CK-MB (CK-2) 259.00 H Troponin I 0.024 Impressions: Wrist X-Ray 01/31/20 16:07 IMPRESSION: NEGATIVE STUDY OF THE LEFT WRIST. NO RADIOGRAPHIC EVIDENCE OF ACUTE INJURY. Assessment and Plan - Diagnosis (1) Rhabdomyolysis Qualifiers: Rhabdomyolysis type: non-traumatic Qualified Code(s): M62.82 - Rhabdomyolysis Is this a current diagnosis for this admission?: Yes Plan: Patient is a very poor historian. Based on his presentation he likely was on a hard floor for hours. The creatinine kinase is 11,000. He will administer aggressive IV fluids and will monitor his creatinine kinase level closely. (2) Acute renal failure Qualifiers: Acute renal failure type: with acute tubular necrosis Qualified Code(s): N17.0 - Acute kidney failure with tubular necrosis Is this a current diagnosis for this admission?: Yes Plan: Secondary to the rhabdomyolysis. The patient also reports a history of not consuming enough water. We will give aggressive IV fluids and monitor his renal function. (3) Hyponatremia Is this a current diagnosis for this admission?: Yes Plan: Low serum sodium could be due to beer consumption or occult liver disease. Will monitor closely. Aggressive normal saline for his rhabdo will likely correct his serum sodium. (4) Hypokalemia Is this a current diagnosis for this admission?: Yes Plan: We will supplement potassium and monitor his electrolytes. I would expect acute kidney injury to produce hyper kalemia. This could be due to occult liver disease (5) Transaminitis Is this a current diagnosis for this admission?: Yes Plan: Likely related to alcohol use. The AST to ALT ratio is 3.8. I will check a lipid panel. We may need to treat for alcohol withdrawal. We may obtain an ultrasound to check for steatohepatitis or cirrhosis (6) Narcolepsy and cataplexy Is this a current diagnosis for this admission?: Yes Plan: He cannot remember his medications. The medication list has not been reconciled yet. There are multiple medications that can be used for the cataplexy. He also states that Provigil "did not work for me "but he felt that the Nuvigil did. Await medication reconciliation to continue at home medications. (7) Plaque psoriasis Is this a current diagnosis for this admission?: Yes Plan: He cannot remember what cream he is on. I would utilize a stronger steroid cream until we can obtain that information. (8) Atrophy of right kidney Is this a current diagnosis for this admission?: Yes Plan: Ultrasound obtained earlier this year reveals atrophy of the right kidney. It suggests chronic kidney disease. This will need to be confirmed. - Time Time Spent with patient: 35 or more minutes Medications reviewed and adjusted accordingly: Yes Anticipated discharge: Home Within: Other - Likely 4 to 5 days - Inpatient Certification Based on my medical assessment, after consideration of the patient's comorbidities, presenting symptoms, or acuity I expect that the services needed warrant INPATIENT care.: Yes I certify that my determination is in accordance with my understanding of Medicare's requirements for reasonable and necessary INPATIENT services [42 CFR 412.3e].: Yes Medical Necessity: Need Close Monitoring Due to Risk of Patient Decompensation, Need For IV Fluids, Need for Pain Control, Risk of Complication if Not Cared For in Hospital Post Hospital Care: D/C Parks Recreation Director Documentation
[2020-01-31 22:00] LABS: ALCOHOL < 10 mg/dL (NONE DETECTED)
[2020-01-31] MEDS ORDERED: FAMOTIDINE 20 MG TABLET PO SCH (22:00)
[2020-01-31] MEDS: FAMOTIDINE 20 MG TABLET PO SCH (22:49)
[2020-01-31] MEDS: OXYCODONE-ACETAMINOPHEN 5-325 MG TABLET PO PRN (22:49)
[2020-01-31] MEDS: POTASSIUM CHLORIDE 10 MEQ TABLET.ER PO SCH (22:51)
[2020-01-31] MEDS: HEPARIN SOD (PORCINE) 5,000 UNIT/ML 1 ML VIAL SUBCUT SCH (22:51)
[2020-01-31] MEDS: CLOBETASOL PROPIONATE 0.05% CREAM 15 GM TP SCH (22:52)
[2020-01-31 22:58] LABS: ALBUMIN 3.9 g/dL (3.5-5.0); ANION GAP 9 (5-19); BLOOD UREA NITROGEN 41 mg/dL (7-20); CALCIUM 8.8 mg/dL (8.4-10.2); CARBON DIOXIDE 26 mmol/L (22-30); CHLORIDE 96 mmol/L (98-107); GLUCOSE 96 mg/dL (75-110); PHOSPHORUS 4.9 mg/dL (2.5-4.5); POTASSIUM 3.7 mmol/L (3.6-5.0)
[2020-01-31 23:20] LABS: CREATINE KINASE 19321 U/L (55-170)
[2020-01-31 23:41] LABS: APPEARANCE,URINE CLOUDY; BILIRUBIN,URINE NEGATIVE (NEGATIVE); COLOR,URINE YELLOW; GLUCOSE, URINE NEGATIVE (NEGATIVE); KETONES,URINE NEGATIVE (NEGATIVE); LEUKOCYTE ESTERASE,URINE NEGATIVE (NEGATIVE); NITRITE,URINE NEGATIVE (NEGATIVE); PROTEIN,URINE 30 mg/dL (NEGATIVE); URINE SPECIFIC GRAVITY 1.012; UROBILINOGEN,URINE NEGATIVE mg/dL (<2.0)
[2020-02-01] MEDS: HEPARIN SOD (PORCINE) 5,000 UNIT/ML 1 ML VIAL SUBCUT SCH ×3 (05:53→22:36)
[2020-02-01] MEDS: NORMAL SALINE 1000 ML 1,000 ML IV PRN ×2 (07:02→19:54)
[2020-02-01 07:07] LABS: ALBUMIN 3.6 g/dL (3.5-5.0); ANION GAP 10 (5-19); BLOOD UREA NITROGEN 39 mg/dL (7-20); CALCIUM 8.6 mg/dL (8.4-10.2); CARBON DIOXIDE 23 mmol/L (22-30); CHLORIDE 101 mmol/L (98-107); CHOLESTEROL 137.29 mg/dL (0-200); GLUCOSE 106 mg/dL (75-110); PHOSPHORUS 4.1 mg/dL (2.5-4.5); POTASSIUM 3.3 mmol/L (3.6-5.0); TRIGLYCERIDES 131 mg/dL (<150)
[2020-02-01 07:20] LABS: DIRECT LDL 37 mg/dL (<100)
--- NOTE | 2020-02-01 09:19 | EKG REPORT ---
SEVERITY:- OTHERWISE NORMAL ECG - SINUS RHYTHM ATRIAL PREMATURE COMPLEX : Confirmed by: Onel Johnson 01-Feb-2020 09:18:35
[2020-02-01] MEDS: POTASSIUM CHLORIDE 10 MEQ TABLET.ER PO SCH ×2 (10:08→22:36)
[2020-02-01] MEDS: CLOBETASOL PROPIONATE 0.05% CREAM 15 GM TP SCH ×2 (10:08→22:36)
[2020-02-01] MEDS ORDERED: PROMETHAZINE HCL INJ 25 MG/1 ML VIAL IV PRN (15:00)
--- NOTE | 2020-02-01 15:38 | PDOC PROGRESS REPORT ---
Subjective Progress Note for:: 02/01/20 Subjective:: The patient is sleepy. He feels achy. It is not localized but more systemic. No more evidence of miquel. Reason For Visit: RHABDOMYOLYSIS,ACUTE KIDNEY INJURY,HYPOKALEMIA Physical Exam Vital Signs: Temp Pulse Resp BP Pulse Ox 98.7 F 97 12 139/80 H 96 02/01/20 07:00 02/01/20 07:00 02/01/20 07:00 02/01/20 07:00 02/01/20 07:00 Intake & Output 01/31/20 02/01/20 02/02/20 06:59 06:59 06:59 Intake Total 1476 1929 Output Total 900 Balance 576 1929 Weight 96.9 kg General appearance: PRESENT: no acute distress, cooperative, well-developed Head exam: PRESENT: atraumatic, normocephalic Eye exam: PRESENT: conjunctiva pink. ABSENT: scleral icterus Ear exam: PRESENT: normal external ear exam. ABSENT: bleeding, drainage Mouth exam: PRESENT: moist, tongue midline Neck exam: PRESENT: full ROM. ABSENT: carotid bruit, JVD, lymphadenopathy Respiratory exam: PRESENT: clear to auscultation david, symmetrical, unlabored. ABSENT: accessory muscle use, rales, rhonchi, tachypnea, wheezes Cardiovascular exam: PRESENT: RRR, +S1, +S2, systolic murmur - 3/6 GI/Abdominal exam: PRESENT: normal bowel sounds, soft. ABSENT: distended, guarding, tenderness Rectal exam: PRESENT: deferred Gentrourinary exam: ABSENT: indwelling catheter Extremities exam: ABSENT: pedal edema Musculoskeletal exam: PRESENT: ambulatory, normal inspection. ABSENT: deformity, dislocation Neurological exam: PRESENT: awake, oriented to person, oriented to place, oriented to situation, CN II-XII grossly intact. ABSENT: alert - Sleepy this afternoon Psychiatric exam: PRESENT: flat affect. ABSENT: agitated, anxious, manic Focused psych exam: ABSENT: delusional, paranoid, restlessness Skin exam: PRESENT: dry, warm. ABSENT: rash Results Laboratory Results: 01/31/20 15:32 02/01/20 05:06 01/31/20 01/31/20 01/31/20 15:32 15:32 16:30 WBC 6.2 RBC 4.33 L Hgb 12.3 L Hct 36.8 L MCV 85 MCH 28.5 MCHC 33.5 RDW 14.4 H Plt Count 267 Seg Neutrophils % 66.8 Sodium Cancelled 129.3 L Potassium Cancelled 3.1 L Chloride Cancelled 96 L Carbon Dioxide Cancelled 22 Anion Gap Cancelled 11 BUN Cancelled 41 H Creatinine Cancelled 3.81 H Est GFR ( Amer) Cancelled 20 L Est GFR (Non-Af Amer) Cancelled Glucose Cancelled 101 Calcium Cancelled 8.3 L Phosphorus Magnesium Total Bilirubin Cancelled 0.5 GGT AST Cancelled 261 H Alkaline Phosphatase Cancelled 127 H Total Protein Cancelled 6.9 Albumin Cancelled 3.7 Triglycerides Cholesterol LDL Cholesterol Direct VLDL Cholesterol HDL Cholesterol TSH Urine Color Urine Appearance Urine pH Ur Specific [place] Urine Protein Urine Glucose (UA) Urine Ketones Urine Blood Urine Nitrite Ur Leukocyte Esterase Urine WBC (Auto) Urine RBC (Auto) 01/31/20 01/31/20 01/31/20 16:30 22:19 23:10 WBC RBC Hgb Hct MCV MCH MCHC RDW Plt Count Seg Neutrophils % Sodium 130.9 L Potassium 3.7 Chloride 96 L Carbon Dioxide 26 Anion Gap 9 BUN 41 H Creatinine 3.28 H Est GFR ( Amer) 24 L Est GFR (Non-Af Amer) Glucose 96 Calcium 8.8 Phosphorus 4.9 H Magnesium Total Bilirubin GGT 17 AST Alkaline Phosphatase Total Protein Albumin 3.9 Triglycerides Cholesterol LDL Cholesterol Direct VLDL Cholesterol HDL Cholesterol TSH Urine Color YELLOW Urine Appearance CLOUDY Urine pH 5.0 Ur Specific [place] 1.012 Urine Protein 30 H Urine Glucose (UA) NEGATIVE Urine Ketones NEGATIVE Urine Blood LARGE H Urine Nitrite NEGATIVE Ur Leukocyte Esterase NEGATIVE Urine WBC (Auto) 11 Urine RBC (Auto) 3 02/01/20 02/01/20 05:06 05:06 WBC RBC Hgb Hct MCV MCH MCHC RDW Plt Count Seg Neutrophils % Sodium 134.0 L Potassium 3.3 L Chloride 101 Carbon Dioxide 23 Anion Gap 10 BUN 39 H Creatinine 2.59 H Est GFR ( Amer) 31 L Est GFR (Non-Af Amer) Glucose 106 Calcium 8.6 Phosphorus 4.1 Magnesium 2.2 Total Bilirubin GGT AST Alkaline Phosphatase Total Protein Albumin 3.6 Triglycerides 131 Cholesterol 137.29 LDL Cholesterol Direct 37 VLDL Cholesterol 26.0 HDL Cholesterol 85 TSH 1.05 Urine Color Urine Appearance Urine pH Ur Specific [place] Urine Protein Urine Glucose (UA) Urine Ketones Urine Blood Urine Nitrite Ur Leukocyte Esterase Urine WBC (Auto) Urine RBC (Auto) 01/31/20 01/31/20 01/31/20 15:32 15:32 16:30 Creatine Kinase Cancelled 92435 H CK-MB (CK-2) 259.00 H Troponin I 0.024 01/31/20 01/31/20 18:44 22:19 Creatine Kinase 54978 H CK-MB (CK-2) 265.00 H Troponin I Impressions: Wrist X-Ray 01/31/20 16:07 IMPRESSION: NEGATIVE STUDY OF THE LEFT WRIST. NO RADIOGRAPHIC EVIDENCE OF ACUTE INJURY. Assessment and Plan - Diagnosis (1) Rhabdomyolysis Qualifiers: Rhabdomyolysis type: non-traumatic Qualified Code(s): M62.82 - Rhabdomyolysis Is this a current diagnosis for this admission?: Yes Plan: Creatinine kinase was 19,000 last night. No value this morning but will recheck tomorrow. This is likely a peak from yesterday. Patient will continue to get aggressive IV fluids. I expect the level to be down in the morning. (2) Acute renal failure Qualifiers: Acute renal failure type: with acute tubular necrosis Qualified Code(s): N17.0 - Acute kidney failure with tubular necrosis Is this a current diagnosis for this admission?: Yes Plan: Improved. BUN is down from 39-41 but the serum creatinine is down to 2.59 from 3.28. Continue IV fluids. (3) Hyponatremia Is this a current diagnosis for this admission?: Yes Plan: Improved from 130-134. Continue normal saline. (4) Hypokalemia Is this a current diagnosis for this admission?: Yes Plan: Potassium level still slightly low at 3.3. Increase potassium supplement. (5) Transaminitis Is this a current diagnosis for this admission?: Yes Plan: AST was approximately 3 times the ALT level. This might suggest alcohol liver disease. The patient serum alcohol on admission was less than 10. We will continue to monitor. (6) Narcolepsy and cataplexy Is this a current diagnosis for this admission?: Yes Plan: We will resume baseline medications. (7) Plaque psoriasis Is this a current diagnosis for this admission?: Yes Plan: Temporary use of steroid cream while hospitalized. (8) Atrophy of right kidney Is this a current diagnosis for this admission?: Yes Plan: Noted on previous ultrasound. Likely indicates chronic kidney disease. - Time Time Spent with patient: 15-24 minutes Medications reviewed and adjusted accordingly: Yes Anticipated discharge: Home Within: within 72 hours
[2020-02-01] MEDS: OXYCODONE-ACETAMINOPHEN 5-325 MG TABLET PO PRN (19:53)
[2020-02-01] MEDS: FAMOTIDINE 20 MG TABLET PO SCH (22:36)
[2020-02-01] MEDS: TRAZODONE HCL 50 MG TABLET PO PRN (22:46)
[2020-02-02] MEDS: OXYCODONE-ACETAMINOPHEN 5-325 MG TABLET PO PRN ×2 (02:18→09:41)
[2020-02-02] MEDS: NORMAL SALINE 1000 ML 1,000 ML IV PRN ×3 (03:58→17:18)
[2020-02-02 05:09] LABS: ABSOLUTE MONOCYTES (AUTO) 0.6 10^3/uL (0.1-1.4); ABSOLUTE NEUT (AUTO) 1.5 10^3/uL (1.7-8.2); BASOPHILS % (AUTO) 0.6 % (0-2); HEMATOCRIT 34.8 % (37.9-51.0); HEMOGLOBIN 11.9 g/dL (13.5-17.0); LYMPHOCYTES % (AUTO) 31.1 % (13-45); MEAN CORPUSCULAR HEMOGLOBIN 28.7 pg (27.0-33.4); MEAN CORPUSCULAR HGB CONC 34.1 g/dL (32.0-36.0); MEAN CORPUSCULAR VOLUME 84 fl (80-97); MONOCYTES % (AUTO) 19.9 % (3-13); PLATELET COUNT 241 10^3/uL (150-450); RED BLOOD COUNT 4.14 10^6/uL (4.35-5.55); RED CELL DISTRIBUTION WIDTH 14.3 % (11.5-14.0); SEGMENTED NEUTROPHILS % (AUTO) 47.4 % (42-78); TOTAL CELLS COUNTED % (AUTO) 100 %; WHITE BLOOD COUNT 3.1 10^3/uL (4.0-10.5)
[2020-02-02 05:34] LABS: ALBUMIN 3.3 g/dL (3.5-5.0); ANION GAP 5 (5-19); BLOOD UREA NITROGEN 28 mg/dL (7-20); CALCIUM 8.9 mg/dL (8.4-10.2); CARBON DIOXIDE 24 mmol/L (22-30); CHLORIDE 109 mmol/L (98-107); GLUCOSE 99 mg/dL (75-110); PHOSPHORUS 2.5 mg/dL (2.5-4.5); POTASSIUM 3.7 mmol/L (3.6-5.0)
[2020-02-02] MEDS: HEPARIN SOD (PORCINE) 5,000 UNIT/ML 1 ML VIAL SUBCUT SCH ×3 (06:29→23:05)
[2020-02-02] MEDS: POTASSIUM CHLORIDE 10 MEQ TABLET.ER PO SCH ×2 (09:41→23:27)
[2020-02-02] MEDS: LEVOTHYROXINE SODIUM 0.075 MG TABLET PO SCH (09:41)
[2020-02-02] MEDS: BUPROPION HCL 75 MG TABLET PO SCH ×3 (09:41→19:32)
[2020-02-02] MEDS: VENLAFAXINE HCL 75 MG TABLET PO SCH ×3 (09:41→17:17)
[2020-02-02] MEDS: CLOBETASOL PROPIONATE 0.05% CREAM 15 GM TP SCH ×2 (09:42→23:32)
[2020-02-02] MEDS: PREGABALIN 75 MG CAPSULE PO SCH ×2 (13:35→23:27)
[2020-02-02] MEDS ORDERED: MORPHINE SULFATE IR 30 MG TABLET PO PRN (14:49)
--- NOTE | 2020-02-02 14:51 | PDOC PROGRESS REPORT ---
Subjective Progress Note for:: 02/02/20 Subjective:: The patient suggested that he was not getting his usual medications. I was sure that I have ordered the and I told him I would check. It seemed that he was most concerned with his morphine. Nursing states that he has been sleeping most of the day. Reason For Visit: RHABDOMYOLYSIS,ACUTE KIDNEY INJURY,HYPOKALEMIA Physical Exam Vital Signs: Temp Pulse Resp BP Pulse Ox 99.0 F 67 16 145/76 H 100 02/02/20 11:21 02/02/20 07:33 02/02/20 11:21 02/02/20 11:21 02/02/20 07:33 Intake & Output 02/01/20 02/02/20 02/03/20 06:59 06:59 06:59 Intake Total 1476 4755 1000 Output Total 900 Balance 576 4755 1000 Weight 96.9 kg 96.7 kg General appearance: PRESENT: no acute distress, cooperative, well-developed Head exam: PRESENT: atraumatic, normocephalic Ear exam: PRESENT: normal external ear exam. ABSENT: bleeding, drainage Mouth exam: PRESENT: moist, tongue midline Respiratory exam: PRESENT: clear to auscultation david, symmetrical, unlabored. ABSENT: accessory muscle use, rales, rhonchi, tachypnea, wheezes Cardiovascular exam: PRESENT: RRR, +S1, +S2, systolic murmur GI/Abdominal exam: PRESENT: normal bowel sounds, soft. ABSENT: distended, guarding, tenderness Rectal exam: PRESENT: deferred Gentrourinary exam: ABSENT: indwelling catheter Extremities exam: ABSENT: pedal edema Musculoskeletal exam: PRESENT: ambulatory, normal inspection Neurological exam: PRESENT: awake, oriented to person, oriented to place, oriented to time, oriented to situation, CN II-XII grossly intact. ABSENT: alert Psychiatric exam: PRESENT: unusual affect - Somewhat sleepy although he appears medicated. ABSENT: agitated, anxious Results Laboratory Results: 02/02/20 04:00 02/02/20 04:00 02/02/20 02/02/20 04:00 04:00 WBC 3.1 L RBC 4.14 L Hgb 11.9 L Hct 34.8 L MCV 84 MCH 28.7 MCHC 34.1 RDW 14.3 H Plt Count 241 Seg Neutrophils % 47.4 Sodium 138.1 Potassium 3.7 Chloride 109 H Carbon Dioxide 24 Anion Gap 5 BUN 28 H Creatinine 1.34 H Est GFR ( Amer) > 60 Glucose 99 Calcium 8.9 Phosphorus 2.5 Magnesium 2.1 Albumin 3.3 L 01/31/20 01/31/20 01/31/20 15:32 15:32 16:30 Creatine Kinase Cancelled 92586 H CK-MB (CK-2) 259.00 H Troponin I 0.024 01/31/20 01/31/20 02/01/20 18:44 22:19 22:48 Creatine Kinase 79362 H 8007 H CK-MB (CK-2) 265.00 H Troponin I Impressions: Wrist X-Ray 01/31/20 16:07 IMPRESSION: NEGATIVE STUDY OF THE LEFT WRIST. NO RADIOGRAPHIC EVIDENCE OF ACUTE INJURY. Assessment and Plan - Diagnosis (1) Rhabdomyolysis Qualifiers: Rhabdomyolysis type: non-traumatic Qualified Code(s): M62.82 - Rhabdomyolysis Is this a current diagnosis for this admission?: Yes Plan: Creatinine kinase is down to 5809 today. We will continue IV fluids. (2) Acute renal failure Qualifiers: Acute renal failure type: with acute tubular necrosis Qualified Code(s): N17.0 - Acute kidney failure with tubular necrosis Is this a current diagnosis for this admission?: Yes Plan: Creatinine is down to 1.34 from 3.28. BUN is down to 28 from 41. Continue IV fluids. (3) Hyponatremia Is this a current diagnosis for this admission?: Yes Plan: Sodium is now normal (4) Hypokalemia Is this a current diagnosis for this admission?: Yes Plan: Potassium is back in the normal range. Continue potassium chloride supplement. Monitor electrolytes as we may need to decrease the potassium chloride dose (5) Transaminitis Is this a current diagnosis for this admission?: Yes Plan: We will recheck levels tomorrow. AST to ALT ratio suggests alcohol use. Serum alcohol level was undetectable on admission. (6) Narcolepsy and cataplexy Is this a current diagnosis for this admission?: Yes Plan: Continue current medications. I did in fact check and the patient was getting his medications. He may very well be on too many medications. We will continue conservative pain management. (7) Plaque psoriasis Is this a current diagnosis for this admission?: Yes Plan: Continue topical steroid cream (8) Atrophy of right kidney Is this a current diagnosis for this admission?: Yes Plan: Most likely from chronic kidney disease. - Time Time Spent with patient: 15-24 minutes Medications reviewed and adjusted accordingly: Yes Anticipated Discharge Disposition: Home, Self Care Anticipated Discharge: within 48 hours
[2020-02-02] MEDS ORDERED: OXYCODONE-ACETAMINOPHEN 5-325 MG TABLET PO PRN (15:16)
[2020-02-02] MEDS ORDERED: TAMSULOSIN HCL 0.4 MG CAP.SR.24H PO SCH (18:00)
[2020-02-02] MEDS: FAMOTIDINE 20 MG TABLET PO SCH (23:26)
[2020-02-02] MEDS: TRAZODONE HCL 50 MG TABLET PO PRN (23:32)
[2020-02-03] MEDS ORDERED: MORPHINE SULFATE IR 30 MG TABLET PO PRN (01:31)
[2020-02-03 03:16] LABS: C DIFFICILE GDH NEGATIVE (NEGATIVE)
[2020-02-03] MEDS: HEPARIN SOD (PORCINE) 5,000 UNIT/ML 1 ML VIAL SUBCUT SCH ×2 (05:14→13:31)
[2020-02-03] MEDS: LEVOTHYROXINE SODIUM 0.075 MG TABLET PO SCH (05:25)
[2020-02-03] MEDS: PREGABALIN 75 MG CAPSULE PO SCH ×2 (05:25→13:30)
[2020-02-03 06:40] LABS: ALBUMIN 2.9 g/dL (3.5-5.0); ALKALINE PHOSPHATASE 102 U/L (38-126); ASPARTATE AMINO TRANSFERASE 146 U/L (17-59); BILIRUBIN,DIRECT 0.1 mg/dL (0.0-0.4); BILIRUBIN,TOTAL 0.5 mg/dL (0.2-1.3); BLOOD UREA NITROGEN 16 mg/dL (7-20); CALCIUM 8.7 mg/dL (8.4-10.2); GLUCOSE 95 mg/dL (75-110); PHOSPHORUS 2.6 mg/dL (2.5-4.5); POTASSIUM 3.7 mmol/L (3.6-5.0); TOTAL PROTEIN 5.7 g/dL (6.3-8.2)
[2020-02-03 06:45] LABS: CARBON DIOXIDE 23 mmol/L (22-30); CHLORIDE 111 mmol/L (98-107)
[2020-02-03 06:48] LABS: ANION GAP 4 (5-19)
[2020-02-03 06:49] LABS: CREATINE KINASE 2132 U/L (55-170)
[2020-02-03] MEDS: NORMAL SALINE 1000 ML 1,000 ML IV PRN (06:58)
[2020-02-03 08:11] VITALS: BP 149/83
[2020-02-03] MEDS: POTASSIUM CHLORIDE 10 MEQ TABLET.ER PO SCH (09:18)
[2020-02-03] MEDS: BUPROPION HCL 75 MG TABLET PO SCH ×2 (09:18→13:30)
[2020-02-03] MEDS: VENLAFAXINE HCL 75 MG TABLET PO SCH ×2 (09:19→13:30)
[2020-02-03] MEDS: CLOBETASOL PROPIONATE 0.05% CREAM 15 GM TP SCH (09:19)
--- NOTE | 2020-02-03 12:14 | PDOC DISCHARGE SUMMARY ---
Impression - Admit/DC Date/PCP Admission Date/Primary Care Provider: 01/31/20 18:14 JHONNY MANJARREZ PA-C Discharge Date: 02/03/20 - Discharge Diagnosis (1) Rhabdomyolysis Is this a current diagnosis for this admission?: Yes (2) Acute renal failure Is this a current diagnosis for this admission?: Yes (3) Atrophy of right kidney Is this a current diagnosis for this admission?: Yes (4) Hypokalemia Is this a current diagnosis for this admission?: Yes (5) Hyponatremia Is this a current diagnosis for this admission?: Yes (6) Narcolepsy and cataplexy Is this a current diagnosis for this admission?: Yes (7) Plaque psoriasis Is this a current diagnosis for this admission?: Yes (8) Transaminitis Is this a current diagnosis for this admission?: Yes - Additional Information Resuscitation Status: Full Code Discharge Diet: As Tolerated Discharge Activity: Activity As Tolerated Referrals: JHONNY MANJARREZ PA-C [Primary Care Provider] - Follow up as needed Home Medications: Bupropion HCl [Wellbutrin 75 mg Tablet] 75 mg PO TID 11/29/19 Levothyroxine Sodium 75 mcg PO DAILY 11/29/19 Losartan/Hydrochlorothiazide [Losartan-Hctz 100-25 mg Tab] 1 each PO DAILY 11/29/19 Morphine Sulfate [Morphine Ir 30 mg Tablet] 30 mg PO TIDP PRN 11/29/19 Omeprazole 20 mg PO DAILY 11/29/19 Pregabalin 75 mg PO TID 11/29/19 Tamsulosin HCl [Flomax] 0.4 mg PO DAILY 11/29/19 Venlafaxine HCl [Effexor 75 mg Tablet] 75 mg PO TID 11/29/19 History of Present Illiness History of Present Illness: According to admitting provider: DAREN BARGER is a 59 year old male who over the last 7 months has had multiple visits to the emergency department. He is quite restless in bed and has a manic presentation. He has a history of narcolepsy and cataplexy. The patient states that he was sitting on his toilet and passed out. He remembers being on the floor but not much else. He denies any sore areas from contusions. Laboratory evaluation reveals a creatinine kinase level of 11,522. AST is 261 with an ALT of 67 and a ratio of 3.8. BUN is 41 with creatinine of 3.81. His GFR is only 16. He has had a presentation of acute kidney injury in the past but his most recent serum creatinine was 0.92. He is hyponatremic with a sodium of 129 and hypokalemic with a potassium of 3.1. He has a serum calcium level that is barely below the lower limit normal. His serum albumin is normal. The vital signs are stable. He did have a renal ultrasound in August which showed atrophy of the right kidney and changes consistent with chronic kidney disease. He could not tell me his medications. He does have psoriasis. He states that he has had multiple surgeries in the past and was able to name most of them. His ability to recall specific details about family history was limited as well. He will be admitted to the hospitalist service with rhabdomyolysis and associated acute kidney injury. He will be given aggressive IV fluids with correction of his potassium and sodium. We will monitor his creatinine kinase with serial blood tests. He will have daily chemistries to check his electrolytes and renal function. He has seen Dr. Cornejo before and so I will likely request a renal consult. Hospital Course Hospital Course: Patient was admitted to the hospital after being noted to have severe rhabdomyol ysis with CK level over 10,000 as well as acute renal failure with creatinine of 3.8 upon presentation. His renal failure was thought to be secondary to dehydration as well as rhabdomyolysis. This was thought to be secondary to an episode of his narcolepsy causing him to fall asleep on the toilet and remain in a cataplectic state on the toilet for prolonged period of time. Patient was started on significant IV fluid hydration in the hospital and monitoring of electrolytes. With aggressive IV fluid hydration, patient's rhabdomyolysis improved and last CK measured was 2000 and creatinine has trended back down to normal. Patient was also treated for hyponatremia and hypokalemia while in the hospital which was thought to be secondary to dehydration but also hydrochlorothiazide medication. His sodium level has now normalized and so has his potassium level. I have discontinued patient's losartan/hydrochlorothiazide combination tablet and instead giving patient prescription for losartan only. Patient has been instructed to follow-up with his primary care provider for repeat basic metabolic panel in 1 to 2 weeks. Patient has also been instructed to follow-up with his PCP or neurologist for optimal management of his narcolepsy. Physical Exam Vital Signs: Temp Pulse Resp BP Pulse Ox 98.6 F 64 16 149/83 H 98 02/03/20 07:43 02/03/20 07:43 02/03/20 07:43 02/03/20 07:43 02/03/20 07:43 Intake & Output 02/02/20 02/03/20 02/04/20 06:59 06:59 06:59 Intake Total 4755 3920 Balance 4755 3920 Weight 96.7 kg 96.5 kg General appearance: PRESENT: no acute distress, cooperative Neck exam: ABSENT: JVD Respiratory exam: PRESENT: unlabored. ABSENT: accessory muscle use, retraction Neurological exam: PRESENT: alert, awake, oriented to person, oriented to place, oriented to time, oriented to situation Psychiatric exam: ABSENT: flat affect, unusual affect Results Laboratory Results: WBC 3.1 10^3/uL (4.0-10.5) L 02/02/20 04:00 RBC 4.14 10^6/uL (4.35-5.55) L 02/02/20 04:00 Hgb 11.9 g/dL (13.5-17.0) L 02/02/20 04:00 Hct 34.8 % (37.9-51.0) L 02/02/20 04:00 MCV 84 fl (80-97) 02/02/20 04:00 MCH 28.7 pg (27.0-33.4) 02/02/20 04:00 MCHC 34.1 g/dL (32.0-36.0) 02/02/20 04:00 RDW 14.3 % (11.5-14.0) H 02/02/20 04:00 Plt Count 241 10^3/uL (150-450) 02/02/20 04:00 Lymph % (Auto) 31.1 % (13-45) 02/02/20 04:00 [place] % (Auto) 19.9 % (3-13) H 02/02/20 04:00 Eos % (Auto) 1.0 % (0-6) 02/02/20 04:00 Baso % (Auto) 0.6 % (0-2) 02/02/20 04:00 Absolute Neuts (auto) 1.5 10^3/uL (1.7-8.2) L 02/02/20 04:00 Absolute Lymphs (auto) 1.0 10^3/uL (0.5-4.7) 02/02/20 04:00 Absolute Monos (auto) 0.6 10^3/uL (0.1-1.4) 02/02/20 04:00 Absolute Eos (auto) 0.0 10^3/uL (0.0-0.6) 02/02/20 04:00 Absolute Basos (auto) 0.0 10^3/uL (0.0-0.2) 02/02/20 04:00 Seg Neutrophils % 47.4 % (42-78) 02/02/20 04:00 Sodium 137.8 mmol/L (137-145) 02/03/20 05:31 Potassium 3.7 mmol/L (3.6-5.0) 02/03/20 05:31 Chloride 111 mmol/L (98-107) H 02/03/20 05:31 Carbon Dioxide 23 mmol/L (22-30) 02/03/20 05:31 Anion Gap 4 (5-19) L 02/03/20 05:31 BUN 16 mg/dL (7-20) 02/03/20 05:31 Creatinine 0.95 mg/dL (0.52-1.25) 02/03/20 05:31 Est GFR ( Amer) > 60 (>60) 02/03/20 05:31 Est GFR (Non-Af Amer) Cancelled 01/31/20 15:32 Est GFR (MDRD) Non-Af > 60 (>60) 02/03/20 05:31 Glucose 95 mg/dL (75-110) 02/03/20 05:31 Calcium 8.7 mg/dL (8.4-10.2) 02/03/20 05:31 Phosphorus 2.6 mg/dL (2.5-4.5) 02/03/20 05:31 Magnesium 1.8 mg/dL (1.6-2.3) 02/03/20 05:31 Total Bilirubin 0.5 mg/dL (0.2-1.3) 02/03/20 05:31 Direct Bilirubin 0.1 mg/dL (0.0-0.4) 02/03/20 05:31 Neonat Total Bilirubin Not Reportable 02/03/20 05:31 Neonat Direct Bilirubin Not Reportable 02/03/20 05:31 Neonat Indirect Bili Not Reportable 02/03/20 05:31 GGT 17 U/L (8-78) 01/31/20 16:30 AST 146 U/L (17-59) H 02/03/20 05:31 ALT 93 U/L (<50) H 02/03/20 05:31 Alkaline Phosphatase 102 U/L (38-126) 02/03/20 05:31 Creatine Kinase 2132 U/L (55-170) H 02/03/20 05:31 CK-MB (CK-2) 265.00 ng/mL (<4.55) H 01/31/20 18:44 Troponin I 0.024 ng/mL 01/31/20 15:32 Total Protein 5.7 g/dL (6.3-8.2) L 02/03/20 05:31 Albumin 2.9 g/dL (3.5-5.0) L 02/03/20 05:31 Triglycerides 131 mg/dL (<150) 02/01/20 05:06 Cholesterol 137.29 mg/dL (0-200) 02/01/20 05:06 LDL Cholesterol Direct 37 mg/dL (<100) 02/01/20 05:06 VLDL Cholesterol 26.0 mg/dL (10-31) 02/01/20 05:06 HDL Cholesterol 85 mg/dL (>40) 02/01/20 05:06 EGFR Cancelled 01/31/20 15:32 TSH 1.05 uIU/mL (0.47-4.68) 02/01/20 05:06 Urine Color YELLOW 01/31/20 23:10 Urine Appearance CLOUDY 01/31/20 23:10 Urine pH 5.0 (5.0-9.0) 01/31/20 23:10 Ur Specific [place] 1.012 01/31/20 23:10 Urine Protein 30 mg/dL (NEGATIVE) H 01/31/20 23:10 Urine Glucose (UA) NEGATIVE mg/dL (NEGATIVE) 01/31/20 23:10 Urine Ketones NEGATIVE mg/dL (NEGATIVE) 01/31/20 23:10 Urine Blood LARGE (NEGATIVE) H 01/31/20 23:10 Urine Nitrite NEGATIVE (NEGATIVE) 01/31/20 23:10 Urine Bilirubin NEGATIVE (NEGATIVE) 01/31/20 23:10 Urine Urobilinogen NEGATIVE mg/dL (<2.0) 01/31/20 23:10 Ur Leukocyte Esterase NEGATIVE (NEGATIVE) 01/31/20 23:10 Urine WBC (Auto) 11 /HPF 01/31/20 23:10 Urine RBC (Auto) 3 /HPF 01/31/20 23:10 Urine Bacteria (Auto) 1+ /HPF 01/31/20 23:10 Urine Mucus (Auto) RARE /LPF 01/31/20 23:10 Urine Ascorbic Acid NEGATIVE (NEGATIVE) 01/31/20 23:10 Stl C. Difficile GDH Ag NEGATIVE (NEGATIVE) 02/02/20 23:45 Stl C.difficile Tox A&B NEGATIVE (NEGATIVE) 02/02/20 23:45 Serum Alcohol < 10 mg/dL (NONE DETECTED) 01/31/20 16:30 01/31/20 01/31/20 15:32 18:44 CK-MB (CK-2) 259.00 H 265.00 H Troponin I 0.024 Impressions: Wrist X-Ray 01/31/20 16:07 IMPRESSION: NEGATIVE STUDY OF THE LEFT WRIST. NO RADIOGRAPHIC EVIDENCE OF ACUTE INJURY. Plan Time Spent: Less than 30 Minutes Stroke Is this a Stroke Patient?: No Acute Heart Failure - Is this a Heart Failure Patient?: No
== END 2020-02-03 16:15 | disposition home or self-care (01) | DRG 557 ==
LOC: ER 15:09 → EH 18:14 → 4W 22:33 → 4N 02-02 17:59
PROVIDERS: ADMIT Hospitalist; ATTEND Hospitalist
DX: M62.82 Rhabdomyolysis (principal); N17.0 Acute kidney failure with tubular necrosis; E87.1 Hypo-osmolality and hyponatremia; N26.1 Atrophy of kidney (terminal); E87.6 Hypokalemia; G47.411 Narcolepsy with cataplexy; L40.0 Psoriasis vulgaris; Z79.899 Other long term (current) drug therapy; E86.0 Dehydration; I10 Essential (primary) hypertension; J45.909 Unspecified asthma, uncomplicated; E03.9 Hypothyroidism, unspecified; E66.9 Obesity, unspecified; K21.9 Gastro-esophageal reflux disease without esophagitis; R74.0 Nonspecific elevation of levels of transaminase and lactic acid dehydrogenase [LDH]; F10.20 Alcohol dependence, uncomplicated; Z98.84 Bariatric surgery status; Z87.891 Personal history of nicotine dependence; Z82.49 Family history of ischemic heart disease and other diseases of the circulatory system
CPT/HCPCS: 36415; 80053; 80061; 80069; 80307; 81001; 82550; 82553; 82977; 83735; 84100; 84443; 84484; 85025; 87324; 87449; 93005; 93010; 99283; J1644; J2550; J3490; J7030

== ENCOUNTER → 2020-06-10 | Outpatient (CLI) | payer MEDICARE ==
--- NOTE | 2020-06-10 16:34 | RADIOLOGY REPORT (SQ) ---
EXAM DESCRIPTION: CT HEAD WITHOUT IMAGES COMPLETED DATE/TIME: 06/10/2020 4:23 pm REASON FOR STUDY: (S09.90XA)UNSPECIFIED INJURY OF HEAD, INITIAL ENCOUNTER S09.90XA UNSPECIFIED INJU RY OF HEAD, INITIAL ENCOUNTER COMPARISON: 09/17/2019 TECHNIQUE: Axial images acquired through the brain without intravenous contrast. Images reviewed wi th bone, brain and subdural windows. Additional sagittal and coronal reconstructions were generated. Images stored on PACS. All CT scanners at this facility use dose modulation, iterative reconstruction, and/or weight based d osing when appropriate to reduce radiation dose to as low as reasonably achievable (ALARA). [facility]: Dose Right [facility]: CareDose [facility]: Dose Right [facility]: Teradose 4D [facility]: Fitnet RADIATION DOSE: CT Rad equipment meets quality standard of care and radiation dose reduction techniq ues were employed. CTDIvol: 48.9 mGy. DLP: 910 mGy-cm. mGy. LIMITATIONS: None. FINDINGS: VENTRICLES: Normal size and contour. CEREBRUM: No masses. No hemorrhage. No midline shift. No evidence for acute infarction. Normal gra y/white matter differentiation. No areas of low density in the white matter. CEREBELLUM: No masses. No hemorrhage. No alteration of density. No evidence for acute infarction. EXTRAAXIAL SPACES: No fluid collections. No masses. ORBITS AND GLOBE: No intra- or extraconal masses. Normal contour of globe without masses. CALVARIUM: No fracture. PARANASAL SINUSES: No fluid or mucosal thickening. SOFT TISSUES: No mass or hematoma. OTHER: No other significant finding. IMPRESSION: NORMAL BRAIN CT WITHOUT CONTRAST. EVIDENCE OF ACUTE STROKE: NO. COMMENT: Quality ID # [id number]: Final reports with documentation of one or more dose reduction techniques (e.g., Automated exposure control, adjustment of the mA and/or kV according to patient size, use of iterative reconstruction technique) TECHNICAL DOCUMENTATION: JOB ID: [id number] 2010 [employer]- All Rights Reserved Reading location - IP/workstation name: [email or web address]
== END ==
LOC: RAD 16:14
PROVIDERS: ATTEND Physician Assistant
DX: S09.90XA Unspecified injury of head, initial encounter (principal); X58.XXXA Exposure to other specified factors, initial encounter
CPT/HCPCS: 70450

== ENCOUNTER 2020-07-17 02:24 | Inpatient (IN) | payer MEDICARE ==
[2020-07-17 03:21] LABS: ABSOLUTE EOSINOPHILS # (AUTO) 0.1 10^3/uL (0.0-0.6); ABSOLUTE LYMPHOCYTES (AUTO) 2.1 10^3/uL (0.5-4.7); ABSOLUTE MONOCYTES (AUTO) 0.9 10^3/uL (0.1-1.4); ABSOLUTE NEUT (AUTO) 5.6 10^3/uL (1.7-8.2); BASOPHILS % (AUTO) 0.3 % (0-2); EOSINOPHILS % (AUTO) 1.6 % (0-6); HEMATOCRIT 34.6 % (37.9-51.0); HEMOGLOBIN 11.6 g/dL (13.5-17.0); LYMPHOCYTES % (AUTO) 23.7 % (13-45); MEAN CORPUSCULAR HEMOGLOBIN 28.2 pg (27.0-33.4); MEAN CORPUSCULAR HGB CONC 33.5 g/dL (32.0-36.0); MEAN CORPUSCULAR VOLUME 84 fl (80-97); MONOCYTES % (AUTO) 10.2 % (3-13); PLATELET COUNT 289 10^3/uL (150-450); RED BLOOD COUNT 4.11 10^6/uL (4.35-5.55); RED CELL DISTRIBUTION WIDTH 16.3 % (11.5-14.0); SEGMENTED NEUTROPHILS % (AUTO) 64.2 % (42-78); TOTAL CELLS COUNTED % (AUTO) 100 %; WHITE BLOOD COUNT 8.7 10^3/uL (4.0-10.5)
[2020-07-17 03:23] LABS: INTERNATIONAL RATION (INR) 0.92; PROTHROMBIN TIME 12.6 SEC (11.4-15.4)
[2020-07-17 03:37] LABS: ALBUMIN 3.7 g/dL (3.5-5.0); ALKALINE PHOSPHATASE 138 U/L (38-126); ANION GAP 9 (5-19); ASPARTATE AMINO TRANSFERASE 33 U/L (17-59); BILIRUBIN,DIRECT 0.2 mg/dL (0.0-0.4); BILIRUBIN,TOTAL 0.3 mg/dL (0.2-1.3); BLOOD UREA NITROGEN 24 mg/dL (7-20); CALCIUM 9.2 mg/dL (8.4-10.2); CARBON DIOXIDE 25 mmol/L (22-30); CHLORIDE 102 mmol/L (98-107); CREATINE KINASE 411 U/L (55-170); GLUCOSE 181 mg/dL (75-110); POTASSIUM 4.6 mmol/L (3.6-5.0); TOTAL PROTEIN 6.8 g/dL (6.3-8.2)
[2020-07-17 04:04] LABS: CREATINE KINASE MB 17.8 ng/mL (<4.55)
[2020-07-17 04:08] LABS: TROPONIN I 0.079 ng/mL
--- NOTE | 2020-07-17 04:15 | ER Document Report ---
ED Cardiac - General Chief Complaint: Irregular Pulse Stated Complaint: CHEST PAIN/SHORTNESS OF BREATH Time Seen by Provider: 07/17/20 04:12 Primary Care Provider: JHONNY MANJARREZ PA-C [Primary Care Provider] - Follow up as needed Mode of Arrival: Wheelchair Information source: Patient, Relative - His Notes: 07/17/20 02:46 - ED Nursing Note by OTIS CONLEY Acc Num: [id number] : 1960 Patient Age: [age] Y/O MALE, WITH SIGNIFICANT PMH, MORPHINE DEPENDENT, PRESENTS WITH HR OF 150 AND LOW B/P. DENIES CARDIAC HISTORY. DENIES N/V OR DIARRHEA. PT REPORTS THAT "ALL DAY I HAVE BEEN FEELING POORLY". MY NOTES 60-year-old male arrives by POV with chief complaint of having a malaise all day. Patient reports he has been out of his morphine over the weekend. Patient reports he had similar symptoms several years ago and had to have a lot of IV fluids put into him. He arrives with a heart rate of 150 and low blood pressure. He was given LR upon arrival to room #1 per nursing staff. Patient has had a prior history of ARF rhabdomyolysis hyponatremia hypokalemia and tachycardia I read Sri notes 01/2019 History of Present Illiness History of Present Illness: According to admitting provider: DAREN BARGER is a 59 year old male who over the last 7 months has had multiple visits to the emergency department. He is quite restless in bed and has a manic presentation. He has a history of narcolepsy and cataplexy. The patient states that he was sitting on his toilet and passed out. He remembers being on the floor but not much else. He denies any sore areas from contusions. Laboratory evaluation reveals a creatinine kinase level of 11,522. AST is 261 with an ALT of 67 and a ratio of 3.8. BUN is 41 with creatinine of 3.81. His GFR is only 16. He has had a presentation of acute kidney injury in the past but his most recent serum creatinine was 0.92. He is hyponatremic with a sodium of 129 and hypokalemic with a potassium of 3.1. He has a serum calcium level that is barely below the lower limit normal. His serum albumin is normal. The vital signs are stable. He did have a renal ultrasound in August which showed atrophy of the right kidney and changes consistent with chronic kidney disease. He could not tell me his medications. He does have psoriasis. He states that he has had multiple surgeries in the past and was able to name most of them. His ability to recall specific details about family history was limited as well. He will be admitted to the hospitalist service with rhabdomyolysis and associated acute kidney injury. He will be given aggressive IV fluids with correction of his potassium and sodium. We will monitor his creatinine kinase with serial blood tests. He will have daily chemistries to check his electrolytes and renal function. He has seen Dr. Cornejo before and so I will likely request a renal consult. TRAVEL OUTSIDE OF THE [place] IN LAST 30 DAYS: No - HPI Patient complains to provider of: denies: Chest pain, Chest tightness, Palpitations, Shortness of breath Use of: Alcohol Is the pain a: Chronic problem Quality of pain: Other - Weakness - Related Data Allergies/Adverse Reactions: No Known Allergies Allergy (Verified 07/17/20 02:43) Past Medical History - General Information source: Patient, Relative - - Social History Smoking Status: Former Smoker Cigarette use (# per day): No Chew tobacco use (# tins/day): No Smoking Education Provided: No Frequency of alcohol use: Heavy - Patient likes beer and bourbon Drug Abuse: None Family History: Reviewed & Not Pertinent, Hypertension Patient has suicidal ideation: No Patient has homicidal ideation: No - Past Medical History Cardiac Medical History: Reports: Hx Hypertension Pulmonary Medical History: Reports: Hx Asthma Endocrine Medical History: Reports: Hx Diabetes Mellitus Type 2 - Reversed after gastric bypass, Hx Hypothyroidism Renal/ Medical History: Denies: Hx Peritoneal Dialysis GI Medical History: Reports: Hx Gastroesophageal Reflux Disease Skin Medical History: Reports Hx Psoriasis Psychiatric Medical History: Reports: Hx Depression Traumatic Medical History: Reports: Hx Fractures Past Surgical History: Reports: Hx Abdominal Surgery, Hx Appendectomy, Hx Bowel Surgery, Hx Cholecystectomy, Hx Gastric Bypass Surgery, Hx Orthopedic Surgery - Immunizations Hx Diphtheria, Pertussis, Tetanus Vaccination: Yes Review of Systems - Review of Systems Constitutional: See HPI, Weakness Cardiovascular: See HPI, Palpitations Physical Exam - Vital signs Vitals: Temp Pulse Resp BP Pulse Ox 97.6 F 156 H 20 93/57 L 99 07/17/20 02:35 07/17/20 02:35 07/17/20 02:35 07/17/20 02:35 07/17/20 02:35 Interpretation: Hypotensive, Tachycardic - General General appearance: Appears well, Alert - HEENT Head: Normocephalic, Atraumatic Eyes: Normal Pupils: PERRL Nasal: Normal Mouth/Lips: Normal Pharynx: Normal Neck: Normal - Respiratory Respiratory status: No respiratory distress Chest status: Nontender Breath sounds: Normal Chest palpation: Normal - Cardiovascular Rhythm: Tachycardia Heart sounds: Normal auscultation Murmur: No - Abdominal Inspection: Normal Distension: No distension Bowel sounds: Normal Tenderness: Nontender Organomegaly: No organomegaly - Rectal Prostate: Other - deferred - Genitourinary Scrotum: Other - deferred - Back Back: Normal, Nontender - Extremities General upper extremity: Normal inspection, Nontender, Normal color, Normal ROM, Normal temperature General lower extremity: Normal inspection, Nontender, Normal color, Normal ROM, Normal temperature, Normal weight bearing. No: Herson's sign - Neurological Neuro grossly intact: Yes Cognition: Normal Orientation: AAOx4 [place] Coma Scale Eye Opening: Spontaneous [place] Coma Scale Verbal: Oriented [place] Coma Scale Motor: Obeys Commands [place] Coma Scale Total: 15 Speech: Normal Motor strength normal: LUE, RUE, LLE, RLE Sensory: Normal - Psychological Associated symptoms: Normal affect, Normal mood - Skin Skin Temperature: Warm Skin Moisture: Dry Skin Color: Normal Course - Vital Signs Vital signs: Temp Pulse Resp BP Pulse Ox 97.6 F 156 H 7 L 97/61 L 84 L 07/17/20 02:35 07/17/20 02:35 07/17/20 06:15 07/17/20 06:16 07/17/20 06:00 - Laboratory Results Result Diagrams: 07/17/20 02:55 07/17/20 02:55 Laboratory Results Interpreted: 07/17/20 07/17/20 07/17/20 02:55 02:55 02:55 RBC 4.11 L Hgb 11.6 L Hct 34.6 L RDW 16.3 H Sodium 136.3 L BUN 24 H Creatinine 2.64 H Est GFR ( Amer) 30 L Est GFR (MDRD) Non-Af 25 L Glucose 181 H Alkaline Phosphatase 138 H Creatine Kinase 411 H CK-MB (CK-2) 17.80 H Urine Protein Urine Ketones Urine Bilirubin Urine Urobilinogen Ur Leukocyte Esterase 07/17/20 06:01 RBC Hgb Hct RDW Sodium BUN Creatinine Est GFR ( Amer) Est GFR (MDRD) Non-Af Glucose Alkaline Phosphatase Creatine Kinase CK-MB (CK-2) Urine Protein 30 H Urine Ketones TRACE H Urine Bilirubin SMALL H Urine Urobilinogen 2.0 H Ur Leukocyte Esterase TRACE H Critical Laboratory Results Reviewed: Yes Attending or Supervising Physician who Reviewed Labs: ABISAI DE LA GARZA JR - Radiology Results Radiology Results Interpreted: 07/17/20 06:12 Dr. Chi radiologist read this x-ray 07/17/20 06:13 Critical Radiology Results Reviewed: Yes Attending or Supervising Physician who Reviewed Radiology: ABISAI DE LA GARZA JR - EKG Interpretation by Oh EKG shows normal: Sinus rhythm Rate: Tachycardia Rhythm: NSR - With tachycardia 150 bpm with repolarization abnormality suggestin g ischemia inferior leads. Critical Care Note - Critical Care Note Comments: Discussed this case with Dr. Carrasquillo at around 0 530 and he advises patient may be placed on Szymanski with IV fluids. I also discussed this case with Dr. Tanner at 0 630 and he advised 1 more liter of fluid and may call back if he has AK D but if he is to continue drinking he advises patient may go home.I discussed this case with Jeferson for final disposition at 0640 Discharge - Discharge Clinical Impression: Malaise and fatigue, Tachycardia, Dehydration, Elevated CPK, Elevated troponin Hypotension Qualifiers: Hypotension type: other hypotension type Qualified Code(s): I95.89 - Other hypotension Condition: Stable Disposition: HOME, SELF-CARE Additional Instructions: Follow-up with Dr. Carrasquillo production finisher and follow-up with your personal doctor and take your usual medicines. Encourage fluids. Referrals: JHONNY MANJARREZ PA-C [Primary Care Provider] - Follow up as needed
[2020-07-17] MEDS ORDERED: LORAZEPAM INJ 2 MG/1 ML VIAL IV ONE ×2 (04:35→10:04)
[2020-07-17] MEDS ORDERED: MORPHINE SULFATE 10 MG/ML INJ IV ONE (04:36)
[2020-07-17] MEDS: RINGERS SOLUTION,LACTATED 1,000 ML IV PRN ×2 (04:51→06:04)
--- NOTE | 2020-07-17 05:44 | RADIOLOGY REPORT (SQ) ---
CLINICAL HISTORY: SOB COMPARISON: None. TECHNIQUE: XR CHEST 2 VIEWS 07/17/2020 12:00 AM [employer] [place] FINDINGS: Cardiac silhouette is normal in size. Lungs are clear without consolidation, atelectasis, mass or edema. There is no pleural effusion. There is no pneumothorax. There are no acute osseous findings. Left diaphragm is elevated. IMPRESSION: Clear lungs.
[2020-07-17 06:23] LABS: APPEARANCE,URINE CLOUDY; BILIRUBIN,URINE SMALL (NEGATIVE); CALCIUM OXALATE CRYSTALS,URINE FEW /HPF; COLOR,URINE YELLOW; GLUCOSE, URINE NEGATIVE (NEGATIVE); KETONES,URINE TRACE mg/dL (NEGATIVE); LEUKOCYTE ESTERASE,URINE TRACE (NEGATIVE); NITRITE,URINE NEGATIVE (NEGATIVE); PROTEIN,URINE 30 mg/dL (NEGATIVE); URINE SPECIFIC GRAVITY 1.023
[2020-07-17] MEDS ORDERED: RINGERS SOLUTION,LACTATED 1,000 ML IV PRN ×2 (06:49→14:24)
[2020-07-17 07:49] LABS: ANION GAP 11 (5-19); BLOOD UREA NITROGEN 24 mg/dL (7-20); CALCIUM 9.2 mg/dL (8.4-10.2); CARBON DIOXIDE 22 mmol/L (22-30); CHLORIDE 102 mmol/L (98-107); CREATINE KINASE 418 U/L (55-170); GLUCOSE 186 mg/dL (75-110); POTASSIUM 4.6 mmol/L (3.6-5.0)
[2020-07-17] MEDS ORDERED: RINGERS SOLUTION,LACTATED 1,000 ML IV ONE (08:50)
[2020-07-17 11:13] LABS: URINE AMPHETAMINES SCREEN NEGATIVE; URINE BARBITURATES SCREEN NEGATIVE; URINE BENZODIAZEPINES SCREEN NEGATIVE; URINE COCAINE SCREEN NEGATIVE; URINE MARIJUANA (THC) SCREEN NEGATIVE; URINE METHADONE SCREEN NEGATIVE; URINE PHENCYCLIDINE SCREEN NEGATIVE
[2020-07-17] MEDS ORDERED: ADENOSINE INJ/PF 6 MG/2 ML SDV IV ONE (11:14)
[2020-07-17] MEDS ORDERED: DILTIAZEM HCL INJ 25 MG/5 ML VIAL ONE (11:32)
[2020-07-17] MEDS ORDERED: DILTIAZEM HCL INJ 25 MG/5 ML VIAL IV ONE (11:32)
[2020-07-17] MEDS ORDERED: DILTIAZEM HCL/D5W 125 MG/125 ML RTUINJ IV PRN (11:32)
[2020-07-17] MEDS ORDERED: DILTIAZEM HCL/D5W 125 MG/125 ML RTUINJ IV ONE (11:32)
--- NOTE | 2020-07-17 11:55 | ER Document Report ---
Doctor's Note Notes: 07/17/20 11:50 This is a gentleman who been worked up overnight by Dr. Luna and had been written up for discharge. Nurses asked me to take another look at him. Dr. Luna's note had indicated that he thought this gentleman had acute rhabdomyolysis related to abuse of alcohol. When I look back of the chart I think the massively elevated CK values he had documented were actually from a year ago. His CK value related to this visit is only around 400. He clearly has a problem with alcoholism and probably has some alcohol withdrawal going on. His alcohol now is undetectable. I was not able to get much additional history from this man as he had had IV Ativan for withdrawal symptoms. I observed that he still has a heart rate of 130 and this looks suspicious for atrial flutter. I gave him a dose of adenosine and was clearly able to block him down see flutter waves. I started him on diltiazem. His rate is now down to 100. He remains very sedated from the Ativan. I reviewed the chart and did not see the been any complaint of chest pain or vomiting. His troponin is mildly elevated 0.6. I discussed this with on-call cardiology, Dr. Lawrence. He is seen the patient also in emergency department recommends admission to telemetry and indicates that he will follow the patient and if he does not convert to a sinus rhythm he will need to consider cardioversion within the next 24 hours. Also this man has acute kidney injury. It looks like his baseline creatinine is about 1.5 and is now up to 2.8. His potassium and CO2 are normal. He has been seeing Dr. Foreign Cornejo in the office and his says that he actually has an appointment later this week. Patient is going to be admitted to telemetry by Dr. Villegas.
--- NOTE | 2020-07-17 12:23 | PDOC CONSULTATION ---
Consultation Consult Date: 07/17/20 Attending physician:: LASHAE RIVAS Provider Consulted: SHEFALI CLARK Consult reason:: A-flutter History of Present Illness Admission Date/PCP: JHONNY MANJARRZE PA-C History of Present Illness: Of note, the patient received 2 mg of Ativan earlier and continues to be sedated from the medication and unable to add much to his history therefore the information contained in this consult is obtained from speaking with Dr. Rivas in the emergency room and review of his chart. DAREN BARGER is a 60 year old male with history of morphine dependency and alcoholism who presented to the emergency room earlier today complaining of feel ing poorly. Per nursing notes, his heart rate was 150 bpm and his blood pressure was low. In discussing the case with Dr. Rivas, the patient was evaluated earlier by Dr. Luna and the plan was to discharge the patient after the case was discussed with Dr. Carrasquillo however Dr. Rivas noted that the patient continue to have an elevated heart rate and obtained an EKG which was nondiagnostic. At that point he was given a dose of adenosine which slowed down his heart rate enough asked to see flutter waves. At that point he was placed on diltiazem infusion with improvement in his ventricular response. He was also noted to develop withdrawal symptoms and was given Ativan. Unfortunately the patient continues to be very drowsy from the medication and is unable to contribute anything meaningfully to his history Physical exam in the emergency room on 07/17/2020: GENERAL: Very drowsy and difficult to wake up. HEENT: Normocephalic, atraumatic. Pupils equal. Sclerae anicteric. Or opharynx moist. NECK: No JVD. No carotid bruits. LUNGS: Clear to auscultation bilaterally. Normal respiratory effort without the use of accessory muscles or intercostal retractions. CARDIOVASCULAR: Irregularly irregular rate and rhythm, normal S1 and S2 without murmurs, rubs, or gallops. PMI not displaced. ABDOMEN: No masses or tenderness to palpation. No bruit. No splenomegaly or hepatomegaly. No abdominal aorta bruit noted. EXTREMITIES: No edema, no cyanosis, no clubbing. +2 pulses femoral and pedal pulses bilaterally. SKIN: No lesions or rashes. MUSCULOSKELETAL: No chest tenderness to palpation. NEUROLOGIC: Nonfocal. No gross sensory or motor deficits bilateral upper or lower extremities. Past Medical History Cardiac Medical History: Reports: Hypertension Pulmonary Medical History: Reports: Asthma Endocrine Medical History: Reports: Diabetes Mellitus Type 2 - Reversed after g astric bypass, Hypothyroidism GI Medical History: Reports: Gastroesophageal Reflux Disease Skin Medical History: Reports: Psoriasis Psychiatric Medical History: Reports: Depression Hematology: Denies: Anemia, Bleeding Tendencies Past Surgical History Past Surgical History: Reports: Appendectomy, Cholecystectomy, Gastric Bypass Surgery, Orthopedic Surgery Social History Smoking Status: Former Smoker Frequency of Alcohol Use: Social Hx Recreational Drug Use: No Drugs: None Hx Prescription Drug Abuse: No Family History Family History: Reviewed & Not Pertinent, Hypertension Parental Family History Reviewed: Yes Children Family History Reviewed: Yes Sibling(s) Family History Reviewed.: Yes Medication/Allergy Home Medications: Bupropion HCl [Wellbutrin 75 mg Tablet] 75 mg PO TID 11/29/19 Levothyroxine Sodium 75 mcg PO DAILY 11/29/19 Morphine Sulfate [Morphine Ir 30 mg Tablet] 30 mg PO TIDP PRN 11/29/19 Omeprazole 20 mg PO DAILY 11/29/19 Pregabalin 75 mg PO TID 11/29/19 Tamsulosin HCl [Flomax] 0.4 mg PO DAILY 11/29/19 Venlafaxine HCl [Effexor 75 mg Tablet] 75 mg PO TID 11/29/19 Losartan Potassium 50 mg PO Q12 #60 tablet 02/03/20 Allergies/Adverse Reactions: No Known Allergies Allergy (Verified 07/17/20 02:43) Physical Exam Vital Signs: Temp Pulse Resp BP Pulse Ox 97.6 F 156 H 8 L 130/72 H 84 L 07/17/20 02:35 07/17/20 02:35 07/17/20 08:02 07/17/20 08:02 07/17/20 06:00 Intake & Output 07/16/20 07/17/20 07/18/20 06:59 06:59 06:59 Intake Total 1999 1000 Balance 1999 1000 Weight 113.398 kg Results Laboratory Results: 07/17/20 02:55 07/17/20 06:31 07/17/20 07/17/20 07/17/20 02:55 02:55 06:01 WBC 8.7 RBC 4.11 L Hgb 11.6 L Hct 34.6 L MCV 84 MCH 28.2 MCHC 33.5 RDW 16.3 H Plt Count 289 Seg Neutrophils % 64.2 Sodium 136.3 L Potassium 4.6 Chloride 102 Carbon Dioxide 25 Anion Gap 9 BUN 24 H Creatinine 2.64 H Est GFR ( Amer) 30 L Glucose 181 H Calcium 9.2 Total Bilirubin 0.3 AST 33 Alkaline Phosphatase 138 H Total Protein 6.8 Albumin 3.7 Urine Color YELLOW Urine Appearance CLOUDY Urine pH 5.0 Ur Specific [place] 1.023 Urine Protein 30 H Urine Glucose (UA) NEGATIVE Urine Ketones TRACE H Urine Blood NEGATIVE Urine Nitrite NEGATIVE Ur Leukocyte Esterase TRACE H Urine WBC (Auto) 6 Urine RBC (Auto) 5 07/17/20 06:31 WBC RBC Hgb Hct MCV MCH MCHC RDW Plt Count Seg Neutrophils % Sodium 134.7 L Potassium 4.6 Chloride 102 Carbon Dioxide 22 Anion Gap 11 BUN 24 H Creatinine 2.66 H Est GFR ( Amer) 30 L Glucose 186 H Calcium 9.2 Total Bilirubin AST Alkaline Phosphatase Total Protein Albumin Urine Color Urine Appearance Urine pH Ur Specific [place] Urine Protein Urine Glucose (UA) Urine Ketones Urine Blood Urine Nitrite Ur Leukocyte Esterase Urine WBC (Auto) Urine RBC (Auto) 07/17/20 07/17/20 07/17/20 02:55 02:55 06:31 Creatine Kinase 411 H CK-MB (CK-2) 17.80 H Troponin I 0.079 0.624 NT-Pro-B Natriuret Pep 07/17/20 07/17/20 06:31 06:31 Creatine Kinase 418 H CK-MB (CK-2) Troponin I NT-Pro-B Natriuret Pep 906 H Impressions: Chest X-Ray 07/17/20 00:00 IMPRESSION: Clear lungs. 07/17/20 02:55 07/17/20 06:31 MCV 84 fl (80-97) 07/17/20 02:55 MCH 28.2 pg (27.0-33.4) 07/17/20 02:55 MCHC 33.5 g/dL (32.0-36.0) 07/17/20 02:55 RDW 16.3 % (11.5-14.0) H 07/17/20 02:55 Seg Neutrophils % 64.2 % (42-78) 07/17/20 02:55 Chloride 102 mmol/L (98-107) 07/17/20 06:31 Carbon Dioxide 22 mmol/L (22-30) 07/17/20 06:31 Anion Gap 11 (5-19) 07/17/20 06:31 Est GFR ( Amer) 30 (>60) L 07/17/20 06:31 Glucose 186 mg/dL (75-110) H 07/17/20 06:31 Calcium 9.2 mg/dL (8.4-10.2) 07/17/20 06:31 Total Bilirubin 0.3 mg/dL (0.2-1.3) 07/17/20 02:55 AST 33 U/L (17-59) 07/17/20 02:55 Alkaline Phosphatase 138 U/L (38-126) H 07/17/20 02:55 Total Protein 6.8 g/dL (6.3-8.2) 07/17/20 02:55 Albumin 3.7 g/dL (3.5-5.0) 07/17/20 02:55 Urine Color YELLOW 07/17/20 06:01 Urine Appearance CLOUDY 07/17/20 06:01 Urine pH 5.0 (5.0-9.0) 07/17/20 06:01 Ur Specific [place] 1.023 07/17/20 06:01 Urine Protein 30 mg/dL (NEGATIVE) H 07/17/20 06:01 Urine Glucose (UA) NEGATIVE mg/dL (NEGATIVE) 07/17/20 06:01 Urine Ketones TRACE mg/dL (NEGATIVE) H 07/17/20 06:01 Urine Blood NEGATIVE (NEGATIVE) 07/17/20 06:01 Urine Nitrite NEGATIVE (NEGATIVE) 07/17/20 06:01 Ur Leukocyte Esterase TRACE (NEGATIVE) H 07/17/20 06:01 Urine WBC (Auto) 6 /HPF 07/17/20 06:01 Urine RBC (Auto) 5 /HPF 07/17/20 06:01 07/17/20 07/17/20 07/17/20 02:55 02:55 06:31 Creatine Kinase 411 H CK-MB (CK-2) 17.80 H Troponin I 0.079 0.624 NT-Pro-B Natriuret Pep 07/17/20 07/17/20 06:31 06:31 Creatine Kinase 418 H CK-MB (CK-2) Troponin I NT-Pro-B Natriuret Pep 906 H Current Medication List Generic Name Dose Route Start Last Admin Trade Name Luis PRN Reason Stop Dose Admin Lactated Ringer's 1,000 mls @ 999 mls/hr 07/17/20 06:49 07/17/20 09:37 Lactated Ringers 1000 Ml Iv Soln IV 08/16/20 06:48 Infused CONTINUOUS PRN Infusion THIS MED IS NOT "PRN" Lactated Ringer's 1,000 mls @ 250 mls/hr 07/17/20 08:50 07/17/20 10:37 Lactated Ringers 1000 Ml Iv Soln IV 07/17/20 12:49 250 mls/hr NOW ONE Administration Diltiazem HCl 125 mg in 125 mls @ 0 mls/hr 07/17/20 11:32 07/17/20 11:49 Cardizem Rtu Inj 125 Mg-D5w 125 Ml Premix IV 08/16/20 11:31 5 ml/hr CONTINUOUS PRN 5 mls/hr THIS MED IS NOT "PRN" Administration Protocol Titrate Discontinued Medications Generic Name Dose Route Start Last Admin Trade Name Luis PRN Reason Stop Dose Admin Adenosine 6 mg 07/17/20 11:14 07/17/20 11:27 Adenosine Inj/Pf 6 Mg/2 Ml Sdv IV 07/17/20 11:15 6 mg NOW ONE Administration Diltiazem HCl 15 mg 07/17/20 11:32 07/17/20 11:40 Diltiazem Hcl Inj 25 Mg/5 Ml Vial IV 07/17/20 11:33 15 mg NOW ONE Administration Diltiazem HCl Confirm 07/17/20 11:32 07/17/20 11:50 Diltiazem Hcl Inj 25 Mg/5 Ml Vial Administered 07/17/20 11:33 Not Given Dose 25 mg .ROUTE .STK-MED ONE Lactated Ringer's 1,000 mls @ 0 mls/hr 07/17/20 04:44 07/17/20 06:44 Lactated Ringers 1000 Ml Iv Soln IV Infused X 2 BAGS PRN Infusion THIS MED IS NOT "PRN" Wide Open Diltiazem HCl Confirm 07/17/20 11:32 07/17/20 11:50 Cardizem Rtu Inj 125 Mg-D5w 125 Ml Premix Administered 07/17/20 11:33 Not Given Dose 125 mg in 125 mls @ ud IV .STK-MED ONE Lorazepam 1 mg 07/17/20 04:35 07/17/20 04:50 Lorazepam Inj 2 Mg/1 Ml Vial IV 07/17/20 04:36 1 mg NOW ONE Administration Lorazepam 2 mg 07/17/20 10:04 07/17/20 10:37 Lorazepam Inj 2 Mg/1 Ml Vial IV 07/17/20 10:05 2 mg NOW ONE Administration Morphine Sulfate 2 mg 07/17/20 04:36 07/17/20 04:50 Morphine Sulfate 10 Mg/Ml Inj IV 07/17/20 04:37 2 mg NOW ONE Administration Assessment & Plan - Diagnosis (1) Atrial flutter Qualifiers: Atrial flutter type: unspecified Qualified Code(s): I48.92 - Unspecified atrial flutter Is this a current diagnosis for this admission?: Yes Plan: Apparently this is the patient's first episode of atrial fibrillation. Unfortunately he is well sedated from the Ativan that he received earlier therefore he cannot participate in the interview however his vital signs are stable and his ventricular response is improved on a diltiazem infusion. Recommendations: -Continue with current medical management for now. -Initiate full anticoagulation in preparation for possible JAH guided cardioversion in 48 hours. -Transthoracic echocardiogram to assess for structural abnormalities. -Cardiac telemetry. -Replace electrolytes as needed. -We will continue to follow with you. (2) Type 2 myocardial infarction Is this a current diagnosis for this admission?: Yes Plan: His most recent troponin is 0.6 which is mildly elevated above our diagnostic threshold. His EKG does not demonstrate acute ischemic changes but unfortunately he is not awake enough as to answer any questions however Dr. Rivas in the emergency room stated that the patient never had any ischemic symptoms therefore we will treat him as a type II myocardial infarction. Recommendations: -Echocardiogram to assess for structural heart disease and regional wall motion abnormalities. -Continue to trend troponins. -Cardiac telemetry. (3) Alcoholism /alcohol abuse Plan: Further management per hospitalist team.
[2020-07-17] MEDS ORDERED: ONDANSETRON HCL INJ/PF 4 MG/2 ML SDV IV PRN (14:24)
[2020-07-17] MEDS: DILTIAZEM HCL 60 MG TABLET PO SCH ×2 (15:23→21:50)
--- NOTE | 2020-07-17 15:46 | PDOC H&P ---
History of Present Illness Admission Date/PCP: 07/17/20 14:06 JHONNY MANJARREZ PA-C History of Present Illness: DAREN BARGER is a 60 year old male with a history of alcoholism came to the ER last night heart rate in the 150s and said he was just feeling poorly. He was given some fluids and his heart rate came down a little bit but was still in the 130s. It was thought that he was just an alcohol withdrawal and was going to go home but his heart rate was still pretty high, so they trialed some adenosine on him to slow his heart rate down and saw that his underlying rhythm was in atrial fibrillation or flutter. He was also found to have an elevated creatinine above his baseline. He began to get agitated not long before I showed up in the ER to see him and so he was given some Ativan and therefore was asleep whenever I came by. All of the history is obtained from the chart. He had been started on a Cardizem drip and converted after a bolus of Cardizem. The drip was still con tinued. I have ordered a dose of oral Cardizem and to have the drip discontinued. Past Medical History Cardiac Medical History: Reports: Hypertension Pulmonary Medical History: Reports: Asthma Endocrine Medical History: Reports: Diabetes Mellitus Type 2 - Reversed after gastric bypass, Hypothyroidism GI Medical History: Reports: Gastroesophageal Reflux Disease Skin Medical History: Reports: Psoriasis Psychiatric Medical History: Reports: Depression Hematology: Denies: Anemia, Bleeding Tendencies Past Surgical History Past Surgical History: Reports: Appendectomy, Cholecystectomy, Gastric Bypass Surgery, Orthopedic Surgery Social History Smoking Status: Former Smoker Frequency of Alcohol Use: Social Hx Recreational Drug Use: No Drugs: None Hx Prescription Drug Abuse: No Family History Family History: Reviewed & Not Pertinent, Hypertension Parental Family History Reviewed: No - Unable to obtain Children Family History Reviewed: No - Unable to obtain Sibling(s) Family History Reviewed.: No - Unable to obtain Medication/Allergy Home Medications: Bupropion HCl [Wellbutrin 75 mg Tablet] 75 mg PO TID 11/29/19 Levothyroxine Sodium 75 mcg PO DAILY 11/29/19 Morphine Sulfate [Morphine Ir 30 mg Tablet] 30 mg PO TIDP PRN 11/29/19 Omeprazole 20 mg PO TID 11/29/19 Pregabalin 75 mg PO TID 11/29/19 Tamsulosin HCl [Flomax] 0.4 mg PO DAILY 11/29/19 Venlafaxine HCl [Effexor 75 mg Tablet] 75 mg PO TID 11/29/19 Losartan Potassium 50 mg PO Q12 #60 tablet 02/03/20 Allergies/Adverse Reactions: No Known Allergies Allergy (Verified 07/17/20 02:43) Review of Systems ROS unobtainable: Due to mental status Physical Exam Vital Signs: Temp Pulse Resp BP Pulse Ox 97.6 F 156 H 9 L 111/77 98 07/17/20 02:35 07/17/20 02:35 07/17/20 13:55 07/17/20 13:55 07/17/20 13:55 Intake & Output 07/16/20 07/17/20 07/18/20 06:59 06:59 06:59 Intake Total 1999 999 Balance 1999 1000 Weight 113.398 kg General appearance: PRESENT: no acute distress, disheveled, morbidly obese Head exam: PRESENT: atraumatic, normocephalic Eye exam: ABSENT: conjunctival injection, scleral icterus Ear exam: PRESENT: normal external ear exam Mouth exam: PRESENT: neck supple Neck exam: PRESENT: full ROM. ABSENT: carotid bruit, JVD, lymphadenopathy, meningismus, tenderness, thyromegaly Respiratory exam: PRESENT: clear to auscultation david, symmetrical, unlabored. ABSENT: accessory muscle use, chest wall tenderness, crackles, prolonged expiratory phas, rhonchi, tachypnea, wheezes Cardiovascular exam: PRESENT: RRR, +S1, +S2 Pulses: PRESENT: normal carotid pulses Vascular exam: PRESENT: normal capillary refill GI/Abdominal exam: PRESENT: normal bowel sounds, soft. ABSENT: distended, guarding, rebound, tenderness Extremities exam: ABSENT: clubbing, pedal edema Musculoskeletal exam: PRESENT: normal inspection. ABSENT: deformity Neurological exam: PRESENT: altered Skin exam: PRESENT: dry, warm Results Laboratory Results: 07/17/20 02:55 07/17/20 06:31 07/17/20 07/17/20 07/17/20 02:55 02:55 06:01 WBC 8.7 RBC 4.11 L Hgb 11.6 L Hct 34.6 L MCV 84 MCH 28.2 MCHC 33.5 RDW 16.3 H Plt Count 289 Seg Neutrophils % 64.2 Sodium 136.3 L Potassium 4.6 Chloride 102 Carbon Dioxide 25 Anion Gap 9 BUN 24 H Creatinine 2.64 H Est GFR ( Amer) 30 L Glucose 181 H Calcium 9.2 Total Bilirubin 0.3 AST 33 Alkaline Phosphatase 138 H Total Protein 6.8 Albumin 3.7 Urine Color YELLOW Urine Appearance CLOUDY Urine pH 5.0 Ur Specific [place] 1.023 Urine Protein 30 H Urine Glucose (UA) NEGATIVE Urine Ketones TRACE H Urine Blood NEGATIVE Urine Nitrite NEGATIVE Ur Leukocyte Esterase TRACE H Urine WBC (Auto) 6 Urine RBC (Auto) 5 07/17/20 06:31 WBC RBC Hgb Hct MCV MCH MCHC RDW Plt Count Seg Neutrophils % Sodium 134.7 L Potassium 4.6 Chloride 102 Carbon Dioxide 22 Anion Gap 11 BUN 24 H Creatinine 2.66 H Est GFR ( Amer) 30 L Glucose 186 H Calcium 9.2 Total Bilirubin AST Alkaline Phosphatase Total Protein Albumin Urine Color Urine Appearance Urine pH Ur Specific [place] Urine Protein Urine Glucose (UA) Urine Ketones Urine Blood Urine Nitrite Ur Leukocyte Esterase Urine WBC (Auto) Urine RBC (Auto) 07/17/20 07/17/20 07/17/20 02:55 02:55 06:31 Creatine Kinase 411 H CK-MB (CK-2) 17.80 H Troponin I 0.079 0.624 NT-Pro-B Natriuret Pep 07/17/20 07/17/20 06:31 06:31 Creatine Kinase 418 H CK-MB (CK-2) Troponin I NT-Pro-B Natriuret Pep 906 H Impressions: Chest X-Ray 07/17/20 00:00 IMPRESSION: Clear lungs. Assessment and Plan - Diagnosis (1) Acute renal failure Qualifiers: Acute renal failure type: with acute tubular necrosis Qualified Code(s): N17.0 - Acute kidney failure with tubular necrosis Is this a current diagnosis for this admission?: Yes (2) Atrial flutter Qualifiers: Atrial flutter type: unspecified Qualified Code(s): I48.92 - Unspecified atrial flutter Is this a current diagnosis for this admission?: Yes (3) Alcoholism /alcohol abuse Is this a current diagnosis for this admission?: Yes (4) Dehydration Is this a current diagnosis for this admission?: Yes - Plan Summary Summary: He converted with Cardizem so we will switch him over to oral Cardizem. Echocardiogram has been ordered. Cardiology has been consulted. As needed Ativan has been ordered. He has been started on some IV fluids. We will monitor the trend in his creatinine. We will try to find out what his home medications are and get those reordered. All of his vital signs are currently stable. - Time Time Spent with patient: 35 or more minutes Anticipated Discharge Disposition: Unknown Anticipated Discharge Timeframe: Unknown - Inpatient Certification Based on my medical assessment, after consideration of the patient's comorbidities, presenting symptoms, or acuity I expect that the services needed warrant INPATIENT care.: Yes I certify that my determination is in accordance with my understanding of Medicare's requirements for reasonable and necessary INPATIENT services [42 CFR 412.3e].: Yes Medical Necessity: Significant Comorbidiites Make Outpatient Treatment Too Risky, Need Close Monitoring Due to Risk of Patient Decompensation, Need For IV Fluids, Need For Continuous Telemetry Monitoring, Risk of Complication if Not C ared For in Hospital
[2020-07-17] MEDS: HEPARIN SOD (PORCINE) 5,000 UNIT/ML 1 ML VIAL SUBCUT SCH (21:50)
--- NOTE | 2020-07-17 23:30 | EKG REPORT ---
SEVERITY:- ABNORMAL ECG - ATRIAL FLUTTER, A-RATE 272 NONSPECIFIC T ABNORMALITIES, LATERAL LEADS : Confirmed by: Onel Johnson 17-Jul-2020 23:30:32
--- NOTE | 2020-07-17 23:31 | EKG REPORT ---
SEVERITY:- ABNORMAL ECG - ATRIAL FLUTTER NONSPECIFIC REPOL ABNORMALITY, DIFFUSE LEADS : Confirmed by: Onel Johnson 17-Jul-2020 23:30:58
--- NOTE | 2020-07-17 23:31 | EKG REPORT ---
SEVERITY:- ABNORMAL ECG - SINUS TACHYCARDIA REPOL ABNRM SUGGESTS ISCHEMIA, INFERIOR LEADS : Confirmed by: Onel Johnson 17-Jul-2020 23:31:20
[2020-07-18] MEDS: LORAZEPAM INJ 2 MG/1 ML VIAL IV PRN (05:29)
[2020-07-18] MEDS: HEPARIN SOD (PORCINE) 5,000 UNIT/ML 1 ML VIAL SUBCUT SCH ×2 (05:29→14:24)
[2020-07-18] MEDS: DILTIAZEM HCL 60 MG TABLET PO SCH ×3 (05:29→21:28)
[2020-07-18 06:39] LABS: ABSOLUTE MONOCYTES (AUTO) 0.4 10^3/uL (0.1-1.4); ABSOLUTE NEUT (AUTO) 1.5 10^3/uL (1.7-8.2); BASOPHILS % (AUTO) 0.6 % (0-2); EOSINOPHILS % (AUTO) 1.2 % (0-6); HEMATOCRIT 31.3 % (37.9-51.0); HEMOGLOBIN 10.6 g/dL (13.5-17.0); MEAN CORPUSCULAR HGB CONC 33.9 g/dL (32.0-36.0); MEAN CORPUSCULAR VOLUME 83 fl (80-97); MONOCYTES % (AUTO) 14.7 % (3-13); PLATELET COUNT 224 10^3/uL (150-450); SEGMENTED NEUTROPHILS % (AUTO) 50.5 % (42-78); TOTAL CELLS COUNTED % (AUTO) 100 %
[2020-07-18 06:58] LABS: ANION GAP 7 (5-19); BLOOD UREA NITROGEN 15 mg/dL (7-20); CALCIUM 8.7 mg/dL (8.4-10.2); CARBON DIOXIDE 26 mmol/L (22-30); CHLORIDE 104 mmol/L (98-107); GLUCOSE 106 mg/dL (75-110); POTASSIUM 4.1 mmol/L (3.6-5.0)
--- NOTE | 2020-07-18 07:17 | XCELERA REPORT ---
[address] [address] Transthoracic Echocardiogram Report Name: DAREN BARGER Age: 60 yrs Gender: Male : 1960 Patient Status: Inpatient Patient Location: [place] [address]^A Study Date: 07/17/2020 05:19 PM Height: 67 in Weight: 250 lb BSA: 2.2 m2 Procedure: A complete two-dimensional transthoracic echocardiogram was performed (2D, M-mode, spectral and color flow Doppler). The study was technically adequate with some images being suboptimal in quality. Reason For Study: afib Ordering Physician: HERLINDA PAREDES Performed By: Aleida Barry Interpretation Summary The left ventricle is normal in size. Left ventricular systolic function is normal. The Ejection Fraction estimate is 60-65%. Doppler measurements suggest impaired left ventricular relaxation, which is associated with grade I/IV or mild diastolic dysfunction. No regional wall motion abnormalities noted. Pulmonic and tricuspid valves not well visualized. Trace TR. No prior studies for comparison. MMode/2D Measurements & Calculations RVDd: 2.3 cm LVIDd: 4.0 cm FS: 31.4 % Ao root diam: 2.7 cm IVSd: 0.91 cm LVIDs: 2.7 cm EDV(Teich): 68.4 ml Ao root area: 5.6 cm2 LVPWd: 0.84 cm ESV(Teich): 27.5 ml EF(Teich): 59.8 % Doppler Measurements & Calculations MV E max abimael: MV dec slope: Ao V2 max: LV V1 max P.8 cm/sec 271.4 cm/sec2 128.6 cm/sec 5.4 mmHg MV A max abimael: MV dec time: 0.22 sec Ao max PG: LV V1 max: 67.1 cm/sec 6.6 mmHg 115.9 cm/sec MV E/A: 0.89 Left Ventricle The left ventricle is normal in size. Left ventricular systolic function is normal. The Ejection Fraction estimate is 60-65%. Doppler measurements suggest impaired left ventricular relaxation, which is associated with grade I/IV or mild diastolic dysfunction. No regional wall motion abnormalities noted. Right Ventricle The right ventricle is grossly normal size. The right ventricular systolic function is normal. Atria The right atrium is normal. The left atrial size is normal. There is no Doppler evidence for an interatrial shunt. Mitral Valve The mitral valve leaflets appear thickened, but open well. There is no mitral regurgitation noted. Aortic Valve The aortic valve is mildly calcified. There is no aortic valve stenosis. No aortic regurgitation is present. Tricuspid Valve The tricuspid valve is not well visualized secondary to technical limitations. There is a trace or physiologic amount of tricuspid regurgitation. Pulmonic Valve The pulmonic valve is not well seen, but is grossly normal. There is no pulmonic valvular regurgitation. Great Vessels The inferior vena cava appeared normal. Effusions There is no pericardial effusion. There is no pleural effusion. : HERLINDA PAREDES Antonio
[2020-07-18] MEDS: INSULIN LISPRO 100 UNIT/ML 3 ML VIAL SUBCUT SCH ×4 (07:38→21:30)
[2020-07-18] MEDS ORDERED: LOPERAMIDE HCL 2 MG CAPSULE PO PRN (10:11)
[2020-07-18] MEDS: MORPHINE SULFATE IR 30 MG TABLET PO PRN ×2 (10:54→17:18)
[2020-07-18] MEDS: TAMSULOSIN HCL 0.4 MG CAP.SR.24H PO SCH (10:54)
[2020-07-18] MEDS: LEVOTHYROXINE SODIUM 0.075 MG TABLET PO SCH (10:55)
[2020-07-18] MEDS: PANTOPRAZOLE SODIUM 20 MG TABLET.DR PO SCH ×2 (10:55→17:17)
--- NOTE | 2020-07-18 10:59 | PDOC PROGRESS REPORT ---
Subjective Date:: 07/18/20 Subjective:: Of note, the patient received 2 mg of Ativan earlier and continues to be sedated from the medication and unable to add much to his history therefore the information contained in this consult is obtained from speaking with Dr. Rivas in the emergency room and review of his chart. DAREN BARGER is a 60 year old male with history of morphine dependency and alcoholism who presented to the emergency room earlier today complaining of feeling poorly. Per nursing notes, his heart rate was 150 bpm and his blood pressure was low. In discussing the case with Dr. Rivas, the patient was evaluated earlier by Dr. Luna and the plan was to discharge the patient after the case was discussed with Dr. Carrasquillo however Dr. Rivas noted that the patient continue to have an elevated heart rate and obtained an EKG which was nondiagnostic. At that point he was given a dose of adenosine which slowed down his heart rate enough asked to see flutter waves. At that point he was pl aced on diltiazem infusion with improvement in his ventricular response. He was also noted to develop withdrawal symptoms and was given Ativan. Unfortunately the patient continues to be very drowsy from the medication and is unable to contribute anything meaningfully to his history. 07/18/20: The patient had an uneventful night and converted back to NSR spontaneously. Unfortunately his troponin trended up somewhat overnight. The patient continues to be sleepy although he is able to wake up fairly quick however does participate in the interview much. Fortunately enough, his daughter was in the room and I was able to speak with his over the phone. The patient does have a history of hypertension and type 2 diabetes. He has no cardiovascular complaints this morning. His echocardiogram on 07/17/20 was unremarkable for the most part, with a preserved EF and no regional wall motion abnormalities or significant valvular disease. His telemetry this morning shows normal sinus rhythm. Physical exam in the emergency room on 07/18/2020: GENERAL: Drowsy and sleepy but able to wake up fairly easily. Falls back to sleep fairly quickly. HEENT: Normocephalic, atraumatic. Pupils equal. Sclerae anicteric. Oropharynx moist. NECK: No JVD. No carotid bruits. LUNGS: Clear to auscultation bilaterally. Normal respiratory effort without the use of accessory muscles or intercostal retractions. CARDIOVASCULAR: Regularly regular rate and rhythm, normal S1 and S2 without murmurs, rubs, or gallops. PMI not displaced. ABDOMEN: No masses or tenderness to palpation. No bruit. No splenomegaly or hepatomegaly. No abdominal aorta bruit noted. EXTREMITIES: No edema, no cyanosis, no clubbing. +2 pulses femoral and pedal pulses bilaterally. SKIN: No lesions or rashes. MUSCULOSKELETAL: No chest tenderness to palpation. NEUROLOGIC: Nonfocal. No gross sensory or motor deficits bilateral upper or lower extremities. Reason For Visit: LOLA, SUSPECTED ETOH W/D, AFIB/RVR Physical Exam Vital Signs: Temp Pulse Resp BP Pulse Ox 98.9 F 69 17 126/67 H 99 07/18/20 01:31 07/18/20 02:00 07/18/20 01:31 07/18/20 01:31 07/18/20 01:31 Intake & Output 07/17/20 07/18/20 07/19/20 06:59 06:59 06:59 Intake Total 1999 2022 Balance 1999 2022 Weight 113.398 kg 113.3 kg Results Laboratory Results: 07/18/20 05:17 07/18/20 05:17 07/17/20 07/18/20 07/18/20 06:31 05:17 05:17 WBC 3.0 L RBC 3.80 L Hgb 10.6 L Hct 31.3 L MCV 83 MCH 28.0 MCHC 33.9 RDW 16.0 H Plt Count 224 Seg Neutrophils % 50.5 Sodium 134.7 L 137.1 Potassium 4.6 4.1 Chloride 102 104 Carbon Dioxide 22 26 Anion Gap 11 7 BUN 24 H 15 Creatinine 2.66 H 0.93 Est GFR ( Amer) 30 L > 60 Glucose 186 H 106 Calcium 9.2 8.7 07/17/20 07/17/20 07/17/20 02:55 02:55 06:31 Creatine Kinase 411 H CK-MB (CK-2) 17.80 H Troponin I 0.079 0.624 NT-Pro-B Natriuret Pep 07/17/20 07/17/20 06:31 06:31 Creatine Kinase 418 H CK-MB (CK-2) Troponin I NT-Pro-B Natriuret Pep 906 H Impressions: Chest X-Ray 07/17/20 00:00 IMPRESSION: Clear lungs. 07/18/20 05:17 07/18/20 05:17 MCV 83 fl (80-97) 07/18/20 05:17 MCH 28.0 pg (27.0-33.4) 07/18/20 05:17 MCHC 33.9 g/dL (32.0-36.0) 07/18/20 05:17 RDW 16.0 % (11.5-14.0) H 07/18/20 05:17 Seg Neutrophils % 50.5 % (42-78) 07/18/20 05:17 Chloride 104 mmol/L (98-107) 07/18/20 05:17 Carbon Dioxide 26 mmol/L (22-30) 07/18/20 05:17 Anion Gap 7 (5-19) 07/18/20 05:17 Est GFR ( Amer) > 60 (>60) 07/18/20 05:17 Glucose 106 mg/dL (75-110) 07/18/20 05:17 Calcium 8.7 mg/dL (8.4-10.2) 07/18/20 05:17 Total Bilirubin 0.3 mg/dL (0.2-1.3) 07/17/20 02:55 AST 33 U/L (17-59) 07/17/20 02:55 Alkaline Phosphatase 138 U/L (38-126) H 07/17/20 02:55 Total Protein 6.8 g/dL (6.3-8.2) 07/17/20 02:55 Albumin 3.7 g/dL (3.5-5.0) 07/17/20 02:55 Urine Color YELLOW 07/17/20 06:01 Urine Appearance CLOUDY 07/17/20 06:01 Urine pH 5.0 (5.0-9.0) 07/17/20 06:01 Ur Specific [place] 1.023 07/17/20 06:01 Urine Protein 30 mg/dL (NEGATIVE) H 07/17/20 06:01 Urine Glucose (UA) NEGATIVE mg/dL (NEGATIVE) 07/17/20 06:01 Urine Ketones TRACE mg/dL (NEGATIVE) H 07/17/20 06:01 Urine Blood NEGATIVE (NEGATIVE) 07/17/20 06:01 Urine Nitrite NEGATIVE (NEGATIVE) 07/17/20 06:01 Ur Leukocyte Esterase TRACE (NEGATIVE) H 07/17/20 06:01 Urine WBC (Auto) 6 /HPF 07/17/20 06:01 Urine RBC (Auto) 5 /HPF 07/17/20 06:01 07/17/20 07/17/20 07/17/20 02:55 02:55 06:31 Creatine Kinase 411 H CK-MB (CK-2) 17.80 H Troponin I 0.079 0.624 NT-Pro-B Natriuret Pep 07/17/20 07/17/20 07/18/20 06:31 06:31 08:03 Creatine Kinase 418 H CK-MB (CK-2) Troponin I 0.679 NT-Pro-B Natriuret Pep 906 H Current Medication List Generic Name Dose Route Start Last Admin Trade Name Freq PRN Reason Stop Dose Admin Diltiazem HCl 60 mg 07/17/20 15:00 07/18/20 05:29 Diltiazem Hcl 60 Mg Tablet PO 07/18/20 22:01 60 mg Q8 DORIS Administration Diltiazem HCl 180 mg 07/19/20 10:00 Diltiazem Hcl 180 Mg Capsule.Cr PO 08/18/20 09:59 DAILY DORIS Heparin Sodium (Porcine) 5,000 unit 07/17/20 22:00 07/18/20 05:29 Heparin Sod (Porcine) 5,000 Unit/Ml 1 Ml Vial SUBCUT 08/16/20 21:59 5,000 unit Q8 DORIS Administration Lactated Ringer's 1,000 mls @ 100 mls/hr 07/17/20 14:24 07/18/20 06:06 Lactated Ringers 1000 Ml Iv Soln IV 08/16/20 14:23 100 mls/hr CONTINUOUS PRN Administration THIS MED IS NOT "PRN" Insulin Human Lispro 0 - 12 unit 07/18/20 08:00 07/18/20 07:38 Insulin Lispro 100 Unit/Ml 3 Ml Vial SUBCUT 08/17/20 07:59 Not Given ACHS [facility] Protocol Levothyroxine Sodium 0.075 mg 07/18/20 11:00 Levothyroxine Sodium 0.075 Mg Tablet PO 08/17/20 10:59 Q6AM DORIS Loperamide HCl 4 mg 07/18/20 10:11 Loperamide Hcl 2 Mg Capsule PO 08/17/20 10:10 Q6HP PRN DIARRHEA Lorazepam 2 mg 07/17/20 14:23 07/18/20 05:29 Lorazepam Inj 2 Mg/1 Ml Vial IV 07/24/20 14:22 2 mg Q4HP PRN Administration ANXIETY/AGITATION Morphine Sulfate 30 mg 07/18/20 10:11 Morphine Sulfate Ir 30 Mg Tablet PO 07/25/20 10:10 TIDP PRN FOR PAIN Ondansetron HCl 4 mg 07/17/20 14:24 Ondansetron Hcl Inj/Pf 4 Mg/2 Ml Sdv IV 08/16/20 14:23 Q4HP PRN FOR NAUSEA/VOMITING Pantoprazole Sodium 20 mg 07/18/20 11:00 Pantoprazole Sodium 20 Mg Tablet. PO 08/17/20 10:59 AC DORIS Tamsulosin HCl 0.4 mg 07/18/20 11:00 Tamsulosin Hcl 0.4 Mg Cap.Sr.24h PO 08/17/20 10:59 DAILY DORIS Venlafaxine HCl 75 mg 07/18/20 14:00 Venlafaxine Hcl 75 Mg Tablet PO 08/17/20 13:59 Q8 DORIS Discontinued Medications Generic Name Dose Route Start Last Admin Trade Name Freq PRN Reason Stop Dose Admin Adenosine 6 mg 07/17/20 11:14 07/17/20 11:27 Adenosine Inj/Pf 6 Mg/2 Ml Sdv IV 07/17/20 11:15 6 mg NOW ONE Administration Diltiazem HCl 15 mg 07/17/20 11:32 07/17/20 11:40 Diltiazem Hcl Inj 25 Mg/5 Ml Vial IV 07/17/20 11:33 15 mg NOW ONE Administration Diltiazem HCl Confirm 07/17/20 11:32 07/17/20 11:50 Diltiazem Hcl Inj 25 Mg/5 Ml Vial Administered 07/17/20 11:33 Not Given Dose 25 mg .ROUTE .STK-MED ONE Lactated Ringer's 1,000 mls @ 0 mls/hr 07/17/20 04:44 07/17/20 06:44 Lactated Ringers 1000 Ml Iv Soln IV Infused X 2 BAGS PRN Infusion THIS MED IS NOT "PRN" Wide Open Lactated Ringer's 1,000 mls @ 999 mls/hr 07/17/20 06:49 07/17/20 09:37 Lactated Ringers 1000 Ml Iv Soln IV 08/16/20 06:48 Infused CONTINUOUS PRN Infusion THIS MED IS NOT "PRN" Lactated Ringer's 1,000 mls @ 250 mls/hr 07/17/20 08:50 07/17/20 15:52 Lactated Ringers 1000 Ml Iv Soln IV 07/17/20 12:49 Infused NOW ONE Infusion Diltiazem HCl 125 mg in 125 mls @ 0 mls/hr 07/17/20 11:32 07/17/20 16:30 Cardizem Rtu Inj 125 Mg-D5w 125 Ml Premix IV 07/17/20 16:00 Infused CONTINUOUS PRN Titration THIS MED IS NOT "PRN" Protocol Titrate Diltiazem HCl Confirm 07/17/20 11:32 07/17/20 11:50 Cardizem Rtu Inj 125 Mg-D5w 125 Ml Premix Administered 07/17/20 11:33 Not Given Dose 125 mg in 125 mls @ ud IV .STK-MED ONE Lorazepam 1 mg 07/17/20 04:35 07/17/20 04:50 Lorazepam Inj 2 Mg/1 Ml Vial IV 07/17/20 04:36 1 mg NOW ONE Administration Lorazepam 2 mg 07/17/20 10:04 07/17/20 10:37 Lorazepam Inj 2 Mg/1 Ml Vial IV 07/17/20 10:05 2 mg NOW ONE Administration Morphine Sulfate 2 mg 07/17/20 04:36 07/17/20 04:50 Morphine Sulfate 10 Mg/Ml Inj IV 07/17/20 04:37 2 mg NOW ONE Administration Assessment & Plan - Diagnosis (1) Atrial flutter Qualifiers: Atrial flutter type: unspecified Qualified Code(s): I48.92 - Unspecified atrial flutter Is this a current diagnosis for this admission?: Yes Plan: Apparently this is the patient's first episode of atrial flutter but he converted spontaneously yesterday. His [id number] score is 2 therefore he needs to be anticoagulated. Fortunately, his echocardiogram was benign. Recommendations: -Continue with current medical management for now. -Start Eliquis 5 mg p.o. twice daily. -Cardiac telemetry. -Replace electrolytes as needed. -We will continue to follow with you. (2) Type 2 myocardial infarction Is this a current diagnosis for this admission?: Yes Plan: His most recent troponin has climbed up to 0.679. He continues to be chest pain-free. I discussed with the patient, who was mostly asleep, and his daughter the different risk stratification options to include pharmacological nuclear stress test versus invasive assessment with left heart catheterization. After discussing the risks, benefits and alternatives to both strategies, his daughter decided to proceed with pharmacological nuclear stress test and the patient agreed. Of note, his echocardiogram demonstrated no focal wall motion abnormalities and a normal ejection fraction. Recommendations: -Continue to trend troponins. -Continue with cardiac telemetry. -Continue with medical management. -Sublingual nitroglycerin if chest pain develops. -Lexiscan nuclear stress test tomorrow, please keep patient n.p.o. after mid night. (3) Alcoholism /alcohol abuse Is this a current diagnosis for this admission?: Yes Plan: Further management per hospitalist team.
[2020-07-18] MEDS ORDERED: (PENDING PHARMACY ID) (Omeprazole [Omeprazole] 20 MG Capsule.Dr) PO SCH (14:00)
[2020-07-18] MEDS: VENLAFAXINE HCL 75 MG TABLET PO SCH ×2 (14:24→21:28)
--- NOTE | 2020-07-18 17:38 | PDOC PROGRESS REPORT ---
Subjective Date:: 07/18/20 Subjective:: No adverse events overnight. It looks like he did not need any sort of withdraw al medication until sometime early this morning. He got the 1 dose in the ER and then he did not get any more until this morning. He was somnolent when I came in the room. His daughter was a nurse I spoke with her. She said that he drinks 1 or 2 beers a night and sometimes has a mixed drink, but she says it is usually a very large glass. Reason For Visit: LOLA, SUSPECTED ETOH W/D, AFIB/RVR Physical Exam Vital Signs: Temp Pulse Resp BP Pulse Ox 98.9 F 76 18 107/81 100 07/18/20 12:00 07/18/20 12:00 07/18/20 12:00 07/18/20 12:00 07/18/20 12:00 Intake & Output 07/17/20 07/18/20 07/19/20 06:59 06:59 06:59 Intake Total 1999 2022 0 Balance 1999 2022 0 Weight 113.398 kg 113.3 kg General appearance: PRESENT: no acute distress, disheveled, morbidly obese Respiratory exam: PRESENT: clear to auscultation david, symmetrical, unlabored. ABSENT: accessory muscle use, chest wall tenderness, crackles, prolonged expi ratory phas, rhonchi, tachypnea, wheezes Cardiovascular exam: PRESENT: RRR, +S1, +S2 Pulses: PRESENT: normal carotid pulses Vascular exam: PRESENT: normal capillary refill GI/Abdominal exam: PRESENT: normal bowel sounds, soft. ABSENT: distended, guarding, rebound, tenderness Extremities exam: ABSENT: clubbing, pedal edema Musculoskeletal exam: PRESENT: normal inspection. ABSENT: deformity Neurological exam: ABSENT: awake Skin exam: PRESENT: dry, warm Results Laboratory Results: 07/18/20 05:17 07/18/20 05:17 07/18/20 07/18/20 05:17 05:17 WBC 3.0 L RBC 3.80 L Hgb 10.6 L Hct 31.3 L MCV 83 MCH 28.0 MCHC 33.9 RDW 16.0 H Plt Count 224 Seg Neutrophils % 50.5 Sodium 137.1 Potassium 4.1 Chloride 104 Carbon Dioxide 26 Anion Gap 7 BUN 15 Creatinine 0.93 Est GFR ( Amer) > 60 Glucose 106 Calcium 8.7 07/17/20 07/17/20 07/17/20 02:55 02:55 06:31 Creatine Kinase 411 H CK-MB (CK-2) 17.80 H Troponin I 0.079 0.624 NT-Pro-B Natriuret Pep 07/17/20 07/17/20 07/18/20 06:31 06:31 08:03 Creatine Kinase 418 H CK-MB (CK-2) Troponin I 0.679 NT-Pro-B Natriuret Pep 906 H 07/18/20 14:25 Creatine Kinase CK-MB (CK-2) Troponin I 0.617 NT-Pro-B Natriuret Pep Impressions: Chest X-Ray 07/17/20 00:00 IMPRESSION: Clear lungs. Assessment and Plan - Diagnosis (1) Acute renal failure Qualifiers: Acute renal failure type: with acute tubular necrosis Qualified Code(s): N17.0 - Acute kidney failure with tubular necrosis Is this a current diagnosis for this admission?: Yes (2) Atrial flutter Qualifiers: Atrial flutter type: unspecified Qualified Code(s): I48.92 - Unspecified atrial flutter Is this a current diagnosis for this admission?: Yes (3) Alcoholism /alcohol abuse Is this a current diagnosis for this admission?: Yes (4) Dehydration Is this a current diagnosis for this admission?: Yes - Plan Summary Summary: He had converted to a sinus rhythm after they gave him a Cardizem push in the ER, they went ahead and put him on the drip anyway, so I switched him over to immediate release Cardizem, which should be converted over to extended release Cardizem tomorrow morning. Dr. Lawrence has recommended anticoagulation with Eliquis. His creatinine has returned to normal. He is not really showing a whole lot of signs of alcohol withdrawal at this point. Plan is for a nuclear stress test tomorrow morning. He is to be n.p.o. after midnight tonight, his morning meds should be held until after his stress test. An order has been entered to that effect. - Time Time Spent with patient: 15-24 minutes Anticipated Discharge Disposition: Home, Self Care Anticipated Discharge Timeframe: within 48 hours
[2020-07-18] MEDS: APIXABAN 5 MG TABLET PO SCH (17:50)
[2020-07-19] MEDS: LORAZEPAM INJ 2 MG/1 ML VIAL IV PRN ×2 (01:51→11:05)
[2020-07-19 05:43] LABS: ABSOLUTE EOSINOPHILS # (AUTO) 0.1 10^3/uL (0.0-0.6); ABSOLUTE LYMPHOCYTES (AUTO) 1.4 10^3/uL (0.5-4.7); ABSOLUTE MONOCYTES (AUTO) 0.5 10^3/uL (0.1-1.4); ABSOLUTE NEUT (AUTO) 1.7 10^3/uL (1.7-8.2); BASOPHILS % (AUTO) 0.7 % (0-2); HEMATOCRIT 32.6 % (37.9-51.0); HEMOGLOBIN 10.9 g/dL (13.5-17.0); LYMPHOCYTES % (AUTO) 36.6 % (13-45); MEAN CORPUSCULAR HEMOGLOBIN 27.4 pg (27.0-33.4); MEAN CORPUSCULAR HGB CONC 33.3 g/dL (32.0-36.0); MEAN CORPUSCULAR VOLUME 82 fl (80-97); MONOCYTES % (AUTO) 13.5 % (3-13); PLATELET COUNT 199 10^3/uL (150-450); RED BLOOD COUNT 3.97 10^6/uL (4.35-5.55); RED CELL DISTRIBUTION WIDTH 15.8 % (11.5-14.0); SEGMENTED NEUTROPHILS % (AUTO) 47.2 % (42-78); TOTAL CELLS COUNTED % (AUTO) 100 %; WHITE BLOOD COUNT 3.7 10^3/uL (4.0-10.5)
[2020-07-19] MEDS: VENLAFAXINE HCL 75 MG TABLET PO SCH (05:44)
[2020-07-19] MEDS: LEVOTHYROXINE SODIUM 0.075 MG TABLET PO SCH (05:44)
[2020-07-19] MEDS: MORPHINE SULFATE IR 30 MG TABLET PO PRN (05:45)
[2020-07-19 06:03] LABS: ANION GAP 5 (5-19); BLOOD UREA NITROGEN 7 mg/dL (7-20); CALCIUM 8.6 mg/dL (8.4-10.2); CARBON DIOXIDE 28 mmol/L (22-30); CHLORIDE 103 mmol/L (98-107); GLUCOSE 109 mg/dL (75-110); POTASSIUM 3.3 mmol/L (3.6-5.0)
[2020-07-19] MEDS ORDERED: DILTIAZEM HCL 180 MG CAPSULE.CR PO SCH (10:00)
[2020-07-19] MEDS ORDERED: REGADENOSON INJ 0.4 MG/5 ML DISP.SYRIN IV ONE (10:39)
[2020-07-19] MEDS: PANTOPRAZOLE SODIUM 20 MG TABLET.DR PO SCH ×2 (10:53→11:06)
[2020-07-19] MEDS: TAMSULOSIN HCL 0.4 MG CAP.SR.24H PO SCH (10:53)
[2020-07-19] MEDS: APIXABAN 5 MG TABLET PO SCH (10:53)
--- NOTE | 2020-07-19 10:57 | PDOC PROGRESS REPORT ---
Subjective Date:: 07/19/20 Subjective:: Of note, the patient received 2 mg of Ativan earlier and continues to be sedated from the medication and unable to add much to his history therefore the information contained in this consult is obtained from speaking with Dr. Rivas in the emergency room and review of his chart. DAREN BARGER is a 60 year old male with history of morphine dependency and alcoholism who presented to the emergency room earlier today complaining of feeling poorly. Per nursing notes, his heart rate was 150 bpm and his blood pressure was low. In discussing the case with Dr. Rivas, the patient was evaluated earlier by Dr. Luna and the plan was to discharge the patient after the case was discussed with Dr. Carrasquillo however Dr. Rivas noted that the patient continue to have an elevated heart rate and obtained an EKG which was nondiagnostic. At that point he was given a dose of adenosine which slowed down his heart rate enough asked to see flutter waves. At that point he was pl aced on diltiazem infusion with improvement in his ventricular response. He was also noted to develop withdrawal symptoms and was given Ativan. Unfortunately the patient continues to be very drowsy from the medication and is unable to contribute anything meaningfully to his history. 07/19/20: The patient had an uneventful night and continues to be in normal sinus rhythm. He states this morning that he did not sleep well last night because he did not get his medications. He specifically denies chest pain, palpitations, dizziness or lightheadedness. His troponin is now trending down. He is actually more awake and alert this morning than in previous days. Review of his chart demonstrates that he is now on thyroid medication therefore he does have a history of hypothyroidism. He also had a history of hypertension. His echocardiogram on 07/17/20 was unremarkable for the most part, with a preserved EF and no regional wall motion abnormalities or significant valvular disease. His telemetry this morning shows normal sinus rhythm. Physical exam in the emergency room on 07/19/2020: GENERAL: Alert, active, oriented x3. HEENT: Normocephalic, atraumatic. Pupils equal. Sclerae anicteric. Oropharynx moist. NECK: No JVD. No carotid bruits. LUNGS: Clear to auscultation bilaterally. Normal respiratory effort without the use of accessory muscles or intercostal retractions. CARDIOVASCULAR: Regularly regular rate and rhythm, normal S1 and S2 without murmurs, rubs, or gallops. PMI not displaced. ABDOMEN: No masses or tenderness to palpation. No bruit. No splenomegaly or hepatomegaly. No abdominal aorta bruit noted. EXTREMITIES: No edema, no cyanosis, no clubbing. +2 pulses femoral and pedal pulses bilaterally. SKIN: No lesions or rashes. MUSCULOSKELETAL: No chest tenderness to palpation. NEUROLOGIC: Nonfocal. No gross sensory or motor deficits bilateral upper or lower extremities. Reason For Visit: LOLA, SUSPECTED ETOH W/D, AFIB/RVR Physical Exam Vital Signs: Temp Pulse Resp BP Pulse Ox 98.2 F 70 18 131/75 H 99 07/19/20 00:29 07/19/20 02:00 07/19/20 00:29 07/19/20 00:29 07/19/20 00:29 Intake & Output 07/18/20 07/19/20 07/20/20 06:59 06:59 06:59 Intake Total 2022 260 Balance 2022 260 Weight 113.3 kg 89.7 kg Results Laboratory Results: 07/19/20 05:23 07/19/20 05:23 07/19/20 07/19/20 05:23 05:23 WBC 3.7 L RBC 3.97 L Hgb 10.9 L Hct 32.6 L MCV 82 MCH 27.4 MCHC 33.3 RDW 15.8 H Plt Count 199 Seg Neutrophils % 47.2 Sodium 136.0 L Potassium 3.3 L Chloride 103 Carbon Dioxide 28 Anion Gap 5 BUN 7 Creatinine 0.82 Est GFR ( Amer) > 60 Glucose 109 Calcium 8.6 07/17/20 07/17/20 07/17/20 02:55 02:55 06:31 Creatine Kinase 411 H CK-MB (CK-2) 17.80 H Troponin I 0.079 0.624 NT-Pro-B Natriuret Pep 07/17/20 07/17/20 07/18/20 06:31 06:31 08:03 Creatine Kinase 418 H CK-MB (CK-2) Troponin I 0.679 NT-Pro-B Natriuret Pep 906 H 07/18/20 14:25 Creatine Kinase CK-MB (CK-2) Troponin I 0.617 NT-Pro-B Natriuret Pep Impressions: Chest X-Ray 07/17/20 00:00 IMPRESSION: Clear lungs. Assessment & Plan - Diagnosis (1) Atrial flutter Qualifiers: Atrial flutter type: unspecified Qualified Code(s): I48.92 - Unspecified atrial flutter Is this a current diagnosis for this admission?: Yes Plan: Continues to be in normal sinus rhythm and asymptomatic. He is anticoagulated with Eliquis twice daily given his [id number] score of 2. Fortunately, his echocardiogram was benign. Recommendations: -Continue with current medical management. -Replace electrolytes as needed. -We will continue to follow with you. (2) Type 2 myocardial infarction Is this a current diagnosis for this admission?: Yes Plan: His troponin is now trending down and has remained free of ischemic symptoms as well as angina equivalents. His telemetry demonstrates normal sinus rhythm without ventricular dysrhythmias. His pharmacological MPS was normal this morning. Recommendations: -The patient may be discharged home from the CV standpoint. -Aggressive risk factor modification. -Outpatient cardiology follow up. (3) Alcoholism /alcohol abuse Is this a current diagnosis for this admission?: Yes Plan: Further management per hospitalist team.
--- NOTE | 2020-07-19 10:58 | DRAGON STRESS TEST REPORT ---
Name: Luis Araiza : Mar Date of study: AUG 01 The patient underwent a stress/rest, single isotope SPECT Imaging with pharmacological stress and gated SPECT imaging on for evaluation of mildly elevated troponin. The patient underwent infusion of regadnoson 0.4mg IV using the standard protocol. The heart rate was 63 beats per minute at baseline and increased to 93 beats during the infusion of regadenoson. The resting blood pressure was 173/101 mm/Hg and decreased to 147/90 mm/Hg, which is a normal response. The patient complained of no symptoms during the procedure. The resting electrocardiogram demonstrated NSR with NSSTTW changes. Stress electrocardiogram is non-diagnostic in the setting of pharmacological stress. Myocardial perfusion imaging was performed at rest following the injection of 14.27 mCi of sestamibi. At peak pharmacolgic effect, the patient was injected with 46.3 mCi of sestamibi. Gating post-stress tomographic imaging was performed 60 minutes after stress. Findings The overall quality of the study is good. Raw images demonstrate no significant artifacts although there is borderline GI contamination of the inferior wall in both the resting and stress views. Left ventricular cavity is noted to be normal on the rest and stress studies. Resting SPECT images demonstrate homogeneous tracer distribution throughout the myocardium. The stress images reveal homogeneous tracer distribution throughout the myocardium. Gated SPECT imaging reveals normal myocardial thickening and wall motion. The left ventricular ejection fraction was calculated to be 62% Impression -Myocardial perfusion imaging is normal with the above artifacts. -There is no scintigraphic evidence of ischemia or infarct. -Overall left ventricular systolic function was normal without wall motion abnormalities. -There are no prior studies for comparison. [facility]
[2020-07-19] MEDS: INSULIN LISPRO 100 UNIT/ML 3 ML VIAL SUBCUT SCH ×2 (11:02→12:37)
[2020-07-19 13:18] VITALS: BP 107/81
--- NOTE | 2020-07-19 14:03 | PDOC DISCHARGE SUMMARY ---
Impression - Admit/DC Date/PCP Admission Date/Primary Care Provider: 07/17/20 14:06 JHONNY MANJARREZ PA-C Discharge Date: 07/19/20 - Discharge Diagnosis (1) Acute renal failure Is this a current diagnosis for this admission?: Yes (2) Alcoholism /alcohol abuse Is this a current diagnosis for this admission?: Yes (3) Dehydration Is this a current diagnosis for this admission?: Yes (4) Elevated troponin Is this a current diagnosis for this admission?: Yes (5) Atrial flutter Is this a current diagnosis for this admission?: Yes - Additional Information Discharge Diet: Cardiac Discharge Activity: Activity As Tolerated, Balance Activity w/Rest, Slowly Increase Activity Referrals: JHONNY MANJARREZ PA-C [Primary Care Provider] - 07/23/20 11:15 am (Follow up in 1 week.) ISAURA ROMERO MD [ACTIVE STAFF] - 07/31/20 9:45 am Prescriptions: Diltiazem HCl [Cardizem Cd 180 mg Capsule] 180 mg PO DAILY #30 capsule.cr Apixaban [Eliquis 5 mg Tablet] 5 mg PO BID #30 tablet Home Medications: Bupropion HCl [Wellbutrin 75 mg Tablet] 75 mg PO TID 11/29/19 Levothyroxine Sodium 75 mcg PO DAILY 11/29/19 Morphine Sulfate [Morphine Ir 30 mg Tablet] 30 mg PO TIDP PRN 11/29/19 Omeprazole 20 mg PO TID 11/29/19 Pregabalin 75 mg PO TID 11/29/19 Tamsulosin HCl [Flomax] 0.4 mg PO DAILY 11/29/19 Venlafaxine HCl [Effexor 75 mg Tablet] 75 mg PO TID 11/29/19 Losartan Potassium 50 mg PO Q12 #60 tablet 02/03/20 Apixaban [Eliquis 5 mg Tablet] 5 mg PO BID #30 tablet 07/19/20 Diltiazem HCl [Cardizem Cd 180 mg Capsule] 180 mg PO DAILY #30 capsule.cr 07/19/20 History of Present Illiness History of Present Illness: Per H&P by Dr. Villegas: DAREN BARGER is a 60 year old male with a history of alcoholism came to the ER last night heart rate in the 150s and said he was just feeling poorly. He was given some fluids and his heart rate came down a little bit but was still in the 130s. It was thought that he was just an alcohol withdrawal and was going to go home but his heart rate was still pretty high, so they trialed some adenosine on him to slow his heart rate down and saw that his underlying rhythm was in atrial fibrillation or flutter. He was also found to have an elevated creatinine above his baseline. He began to get agitated not long before I showed up in the ER to see him and so he was given some Ativan and therefore was asleep whenever I came by. All of the history is obtained from the chart. He had been started on a Cardizem drip and converted after a bolus of Cardizem. The drip was still continued. I have ordered a dose of oral Cardizem and to have the drip discontinued. Hospital Course Hospital Course: Patient was admitted and monitored on continuous cardiac telemetry. He was initially rate controlled with IV diltiazem drip; he did convert to normal sinus rhythm. IV diltiazem was transitioned to oral Cardizem with continued sinus rhythm appropriate rate control. His troponin trended up slightly and therefore cardiology was consulted. Echocardiogram demonstrated a preserved ejection fraction without regional wall motion abnormalities or significant valvular disease. He underwent nuclear stress testing; normal study without evidence of ischemia or infarct. He has been cleared from the ca rdiology perspective for discharge to home with outpatient cardiology follow-up. Patient was provided generous IV fluids with resolution of his acute kidney injury (creatinine 2.66-0.82). Patient did receive as needed Ativan for occasional anxiety/agitation. He received a total of 4 mg in the prior 24 hours. He has no evidence of alcohol withdrawal symptoms at this time. Patient denies interest in alcohol cessation at this time. On morning of discharge, patient states that he feels well and is readily agreeable to discharge to home. Patient is discharged home in stable condition with new prescriptions for diltiazem and Eliquis. He is advised to follow-up with his primary care provider within [address] Lawrence in 4 to 6 weeks. He is further instructed to avoid alcohol intake. Return to the emergency department, as needed, for concerning symptoms. Physical Exam Vital Signs: Temp Pulse Resp BP Pulse Ox 98.1 F 64 15 107/81 98 07/19/20 13:17 07/19/20 13:17 07/19/20 13:17 07/19/20 13:17 07/19/20 13:17 Intake & Output 07/18/20 07/19/20 07/20/20 06:59 06:59 06:59 Intake Total 2022 260 Balance 2022 260 Weight 113.3 kg 89.7 kg General appearance: PRESENT: no acute distress, disheveled, obese, well- developed, well-nourished Head exam: PRESENT: atraumatic, normocephalic Eye exam: PRESENT: conjunctiva pink, EOMI, PERRLA. ABSENT: scleral icterus Mouth exam: PRESENT: moist, tongue midline Respiratory exam: PRESENT: clear to auscultation david, symmetrical, unlabored, other - room air. ABSENT: rales, rhonchi, wheezes Cardiovascular exam: PRESENT: RRR, +S1, +S2. ABSENT: diastolic murmur, rubs, systolic murmur Vascular exam: PRESENT: normal capillary refill Extremities exam: PRESENT: full ROM. ABSENT: calf tenderness, clubbing, pedal edema Musculoskeletal exam: PRESENT: ambulatory Neurological exam: PRESENT: alert, awake, oriented to person, oriented to place, oriented to time, oriented to situation, CN II-XII grossly intact. ABSENT: motor sensory deficit Psychiatric exam: PRESENT: appropriate affect, normal mood. ABSENT: homicidal ideation, suicidal ideation Skin exam: PRESENT: dry, intact, warm. ABSENT: cyanosis, rash Results Laboratory Results: WBC 3.7 10^3/uL (4.0-10.5) L 07/19/20 05:23 RBC 3.97 10^6/uL (4.35-5.55) L 07/19/20 05:23 Hgb 10.9 g/dL (13.5-17.0) L 07/19/20 05:23 Hct 32.6 % (37.9-51.0) L 07/19/20 05:23 MCV 82 fl (80-97) 07/19/20 05:23 MCH 27.4 pg (27.0-33.4) 07/19/20 05:23 MCHC 33.3 g/dL (32.0-36.0) 07/19/20 05:23 RDW 15.8 % (11.5-14.0) H 07/19/20 05:23 Plt Count 199 10^3/uL (150-450) 07/19/20 05:23 Lymph % (Auto) 36.6 % (13-45) 07/19/20 05:23 [place] % (Auto) 13.5 % (3-13) H 07/19/20 05:23 Eos % (Auto) 2.0 % (0-6) 07/19/20 05:23 Baso % (Auto) 0.7 % (0-2) 07/19/20 05:23 Absolute Neuts (auto) 1.7 10^3/uL (1.7-8.2) 07/19/20 05:23 Absolute Lymphs (auto) 1.4 10^3/uL (0.5-4.7) 07/19/20 05:23 Absolute Monos (auto) 0.5 10^3/uL (0.1-1.4) 07/19/20 05:23 Absolute Eos (auto) 0.1 10^3/uL (0.0-0.6) 07/19/20 05:23 Absolute Basos (auto) 0.0 10^3/uL (0.0-0.2) 07/19/20 05:23 Seg Neutrophils % 47.2 % (42-78) 07/19/20 05:23 PT 12.6 SEC (11.4-15.4) 07/17/20 02:55 INR 0.92 07/17/20 02:55 Sodium 136.0 mmol/L (137-145) L 07/19/20 05:23 Potassium 3.3 mmol/L (3.6-5.0) L 07/19/20 05:23 Chloride 103 mmol/L (98-107) 07/19/20 05:23 Carbon Dioxide 28 mmol/L (22-30) 07/19/20 05:23 Anion Gap 5 (5-19) 07/19/20 05:23 BUN 7 mg/dL (7-20) 07/19/20 05:23 Creatinine 0.82 mg/dL (0.52-1.25) 07/19/20 05:23 Est GFR ( Amer) > 60 (>60) 07/19/20 05:23 Est GFR (MDRD) Non-Af > 60 (>60) 07/19/20 05:23 Glucose 109 mg/dL (75-110) 07/19/20 05:23 POC Glucose 102 mg/dL (70-110) 07/19/20 11:27 Calcium 8.6 mg/dL (8.4-10.2) 07/19/20 05:23 Total Bilirubin 0.3 mg/dL (0.2-1.3) 07/17/20 02:55 Direct Bilirubin 0.2 mg/dL (0.0-0.4) 07/17/20 02:55 Neonat Total Bilirubin Not Reportable 07/17/20 02:55 Neonat Direct Bilirubin Not Reportable 07/17/20 02:55 Neonat Indirect Bili Not Reportable 07/17/20 02:55 AST 33 U/L (17-59) 07/17/20 02:55 ALT 20 U/L (<50) 07/17/20 02:55 Alkaline Phosphatase 138 U/L (38-126) H 07/17/20 02:55 Creatine Kinase 418 U/L (55-170) H 07/17/20 06:31 CK-MB (CK-2) 17.80 ng/mL (<4.55) H 07/17/20 02:55 Troponin I 0.401 ng/mL 07/19/20 07:42 NT-Pro-B Natriuret Pep 906 pg/mL (<125) H 07/17/20 06:31 Total Protein 6.8 g/dL (6.3-8.2) 07/17/20 02:55 Albumin 3.7 g/dL (3.5-5.0) 07/17/20 02:55 Urine Color YELLOW 07/17/20 06:01 Urine Appearance CLOUDY 07/17/20 06:01 Urine pH 5.0 (5.0-9.0) 07/17/20 06:01 Ur Specific [place] 1.023 07/17/20 06:01 Urine Protein 30 mg/dL (NEGATIVE) H 07/17/20 06:01 Urine Glucose (UA) NEGATIVE mg/dL (NEGATIVE) 07/17/20 06:01 Urine Ketones TRACE mg/dL (NEGATIVE) H 07/17/20 06:01 Urine Blood NEGATIVE (NEGATIVE) 07/17/20 06:01 Urine Nitrite NEGATIVE (NEGATIVE) 07/17/20 06:01 Urine Bilirubin SMALL (NEGATIVE) H 07/17/20 06:01 Urine Urobilinogen 2.0 mg/dL (<2.0) H 07/17/20 06:01 Ur Leukocyte Esterase TRACE (NEGATIVE) H 07/17/20 06:01 Urine WBC (Auto) 6 /HPF 07/17/20 06:01 Urine RBC (Auto) 5 /HPF 07/17/20 06:01 U Hyaline Cast (Auto) 23 /LPF 07/17/20 06:01 Urine Bacteria (Auto) TRACE /HPF 07/17/20 06:01 Squamous Epi Cells Auto <1 /HPF 07/17/20 06:01 Calcium Oxalate Cr Auto FEW /HPF 07/17/20 06:01 Urine Mucus (Auto) OCC /LPF 07/17/20 06:01 Urine Ascorbic Acid NEGATIVE (NEGATIVE) 07/17/20 06:01 Urine Opiates Screen UNCONFIRMED POSITIVE 07/17/20 06:01 Urine Methadone Screen NEGATIVE 07/17/20 06:01 Ur Barbiturates Screen NEGATIVE 07/17/20 06:01 Ur Phencyclidine Scrn NEGATIVE 07/17/20 06:01 Ur Amphetamines Screen NEGATIVE 07/17/20 06:01 U Benzodiazepines Scrn NEGATIVE 07/17/20 06:01 Urine Cocaine Screen NEGATIVE 07/17/20 06:01 U Marijuana (THC) Screen NEGATIVE 07/17/20 06:01 Serum Alcohol < 10 mg/dL (NONE DETECTED) 07/17/20 06:31 07/17/20 07/17/20 07/17/20 02:55 06:31 06:31 CK-MB (CK-2) 17.80 H Troponin I 0.079 0.624 NT-Pro-B Natriuret Pep 906 H 07/18/20 07/18/20 07/19/20 08:03 14:25 07:42 CK-MB (CK-2) Troponin I 0.679 0.617 0.401 NT-Pro-B Natriuret Pep Impressions: Chest X-Ray 07/17/20 00:00 IMPRESSION: Clear lungs. Plan Plan of Treatment: Patient is discharged to home in stable condition. He is advised to follow-up with Dr. Romero, district customs director, within 4-6 weeks. Follow-up with PCP within 1 week, Eat a heart healthy diet. Take medications as prescribed. STOP drinking alcohol. Do NOT smoke. Return to the emergency department, as needed, for concerning symptoms. Time Spent: Greater than 30 Minutes Stroke Is this a Stroke Patient?: No Acute Heart Failure Is this a Heart Failure Patient?: No
--- NOTE | 2020-07-20 22:40 | EKG REPORT ---
SEVERITY:- ABNORMAL ECG - ATRIAL FLUTTER WITH 2:1 CONDUCTION NONSPECIFIC REPOLARIZATION ABNORMALITIES : Confirmed by: Onel Johnson 20-Jul-2020 22:38:56
== END 2020-07-19 13:40 | disposition home or self-care (01) | DRG 280 ==
LOC: ER 02:24 → EH 14:06 → 4N 20:20
PROVIDERS: ADMIT Family Medicine; ATTEND Registered Nurse
PROC: B24BZZ4 Ultrasonography of Heart with Aorta, Transesophageal (ICD-10-PCS; principal; 2020-07-18)
DX: I48.92 Unspecified atrial flutter (principal); N17.0 Acute kidney failure with tubular necrosis; I21.A1 Myocardial infarction type 2; F11.20 Opioid dependence, uncomplicated; F10.20 Alcohol dependence, uncomplicated; Y90.0 Blood alcohol level of less than 20 mg/100 ml; E86.0 Dehydration; I10 Essential (primary) hypertension; E03.9 Hypothyroidism, unspecified; E11.9 Type 2 diabetes mellitus without complications; E66.01 Morbid (severe) obesity due to excess calories; K21.9 Gastro-esophageal reflux disease without esophagitis; L40.9 Psoriasis, unspecified; F32.9 Major depressive disorder, single episode, unspecified; Z79.899 Other long term (current) drug therapy; Z87.891 Personal history of nicotine dependence
CPT/HCPCS: 36415; 71046; 78452; 80048; 80053; 80307; 81001; 82550; 82553; 82962; 83880; 84484; 85025; 85610; 93005; 93010; 93017; 93306; 96361; 96365; 96366; 96375; 96376; 99285; A9500; J0153; J1644; J2060; J2270; J2785; J3490; J7120; Q9969